=== PATIENT | female | born 1955 | race Native Hawaiian/Other Pacific Islander ===

== ENCOUNTER 2016-04-17 14:37 | Outpatient (CLI) | payer MEDICAID | END 2016-04-17 14:38 | disposition home or self-care (01) | DX: Z13.9 Encounter for screening, unspecified (principal); E53.9 Vitamin B deficiency, unspecified ==

== ENCOUNTER 2016-08-12 13:21 | Emergency (ER) | payer MEDICAID ==
[2016-08-12] MEDS ORDERED: diazePAM INJ 5 MG/ML SYRINGE IVP STA (17:22)
[2016-08-12] MEDS ORDERED: diazePAM INJ 5 MG/ML SYRINGE ONE (17:24)
== END 2016-08-12 19:41 | disposition home or self-care (01) ==
DX: R20.2 Paresthesia of skin (principal); R29.810 Facial weakness; R51 Headache; Z86.73 Personal history of transient ischemic attack (TIA), and cerebral infarction without residual deficits; I10 Essential (primary) hypertension; E11.9 Type 2 diabetes mellitus without complications; Z79.82 Long term (current) use of aspirin

== ENCOUNTER 2016-10-23 10:55 | Outpatient (CLI) | payer MEDICAID ==
--- NOTE | 2016-10-23 11:59 | Ultrasound Report ---
ULTRASOUND OF NECK SOFT TISSUES: 10/23/2016 CLINICAL INDICATION: Palpable painful abnormality anterior neck. TECHNIQUE: Real-time scanning was performed with technical support representative static images obtained. FINDINGS: Ultrasound of the painful palpable abnormality identified by the patient demonstrates a 4 x 3 x 1 mm intradermal nodule, likely representing a small sebaceous cyst. No deeper abnormality is i dentified. IMPRESSION: LIKELY SMALL INTRADERMAL SEBACEOUS CYST. JOB #: [id number] EXT JOB #:[id number]
== END 2016-10-23 10:56 | disposition home or self-care (01) ==
LOC: DI 10:55
PROVIDERS: ATTEND Physician Assistant
DX: L72.3 Sebaceous cyst (principal)
CPT/HCPCS: 76536

== ENCOUNTER → 2016-10-31 | Outpatient (CLI) | payer MEDICAID ==
[2016-10-31 19:19] LABS: ALBUMIN/GLOBULIN RATIO 1.2 (1.0-2.2); BILIRUBIN,TOTAL 0.6 mg/dL (0.2-1.0); CALCIUM 9.2 mg/dL (8.5-10.3); CREATININE 0.7 mg/dL (0.4-1.0); POTASSIUM 4.2 mmol/L (3.5-5.0); TOTAL PROTEIN 6.9 g/dL (6.7-8.2)
== END ==
LOC: LAB.N 08:00
PROVIDERS: ATTEND Nurse Practitioner Gerontology
DX: E55.9 Vitamin D deficiency, unspecified (principal); E53.8 Deficiency of other specified B group vitamins; Z79.899 Other long term (current) drug therapy
CPT/HCPCS: 36415; 80053; 82306; 82607

== ENCOUNTER 2016-12-23 13:34 | Outpatient (CLI) | payer MEDICAID | END 2016-12-23 13:35 | disposition home or self-care (01) | LOC: SC 13:34 | PROVIDERS: ATTEND Internal Medicine Pulmonary Disease | DX: G47.33 Obstructive sleep apnea (adult) (pediatric) (principal) | CPT/HCPCS: 99212; 99213 ==

== ENCOUNTER 2017-02-25 14:27 | Outpatient (CLI) | payer MEDICAID | END 2017-02-25 14:28 | disposition home or self-care (01) | LOC: SC 14:27 | PROVIDERS: ATTEND Internal Medicine Pulmonary Disease | DX: G47.33 Obstructive sleep apnea (adult) (pediatric) (principal) | CPT/HCPCS: 99212; 99213 ==

== ENCOUNTER 2017-04-24 09:15 | Outpatient (CLI) | payer MEDICAID | END 2017-04-24 09:16 | disposition home or self-care (01) | LOC: SC 09:15 | PROVIDERS: ATTEND Nurse Practitioner Family | DX: G47.33 Obstructive sleep apnea (adult) (pediatric) (principal) | CPT/HCPCS: 99212; 99214 ==

== ENCOUNTER 2017-05-30 11:07 | Outpatient (CLI) | payer MEDICAID ==
--- NOTE | 2017-05-30 13:36 | XRAY Report ---
THREE VIEW RIGHT SHOULDER: 05/30/2017 CLINICAL INDICATION: Pain. FINDINGS: Internal and external rotational views and a scapular Y view of the right shoulder demonstrate no evidence of fracture or dislocation. The joint spaces are preserved. No radiopaque foreign body is seen in the soft tissues. IMPRESSION: NORMAL RIGHT SHOULDER. TD: 05/30/2017 13:35
== END 2017-05-30 11:08 | disposition home or self-care (01) ==
LOC: DI.N 11:07
PROVIDERS: ATTEND Family Medicine
DX: M25.511 Pain in right shoulder (principal)

== ENCOUNTER 2017-06-03 14:47 | Outpatient (CLI) | payer MEDICAID ==
[2017-06-03 13:20] LABS: BASOPHILS % (AUTO) 0.5 %; EOSINOPHILS # (AUTO) 0.2 10^3/uL (0.0-0.7); HGB - HEMOGLOBIN 12.1 g/dL (12.0-16.0); LYMPHOCYTES # (AUTO) 1.6 10^3/uL (1.5-3.5); LYMPHOCYTES % (AUTO) 25.5 %; MEAN CORPUSCULAR HEMOGLOBIN 31.7 pg (27.0-31.0); MEAN CORPUSCULAR VOLUME 95.9 fL (81.0-99.0); MEAN PLATELET VOLUME 7.9 fL (7.9-10.8); MONOCYTES # (AUTO) 0.8 10^3/uL (0.0-1.0); MONOCYTES % (AUTO) 12.4 %; NEUTROPHILS # (AUTO) 3.6 10^3/uL (1.5-6.6); NEUTROPHILS % (AUTO) 58.6 %; PLT - PLATELET COUNT 275 10^3/uL (130-450); RED BLOOD COUNT 3.81 10^6/uL (4.20-5.40); RED CELL DISTRIBUTION WIDTH 13.6 % (12.0-15.0); WHITE BLOOD COUNT 6.2 x10^3/uL (4.8-10.8)
[2017-06-03 13:59] LABS: ALBUMIN 3.5 g/dL (3.2-5.5); ALBUMIN/GLOBULIN RATIO 1.1 (1.0-2.2); ALKALINE PHOSPHATASE 62 IU/L (42-121); ALT ALANINE AMINOTRANSFERASE 14 IU/L (10-60); AST ASPARTATE AMINOTRANSFERASE 14 IU/L (10-42); BILIRUBIN,TOTAL 0.3 mg/dL (0.2-1.0); BUN - BLOOD UREA NITROGEN 17 mg/dL (6-20); CALCIUM 8.9 mg/dL (8.5-10.3); CARBON DIOXIDE - CO2 27 mmol/L (21-32); CHLORIDE 108 mmol/L (101-111); CHOL/HDL RATIO 3.9 (<4.4); CHOLESTEROL 168 mg/dL; CREATININE 0.7 mg/dL (0.4-1.0); GFR - MDRD 86 (>89); GLUCOSE 89 mg/dL (70-100); HDL CHOLESTEROL 43 mg/dL; LDL CHOLESTEROL,CALCULATED 110 mg/dL; LDL/HDL RATIO 2.6 (<4.4); SODIUM 141 mmol/L (135-145); TOTAL PROTEIN 6.6 g/dL (6.7-8.2); VLDL CHOLESTEROL 15 mg/dL
== END 2017-06-03 14:48 | disposition home or self-care (01) ==
LOC: LAB.N 14:47
PROVIDERS: ATTEND Family Medicine
DX: D64.9 Anemia, unspecified (principal); I10 Essential (primary) hypertension
CPT/HCPCS: 36415; 80053; 80061; 83721; 85025

== ENCOUNTER 2017-06-23 09:45 | Outpatient (CLI) | payer MEDICAID | END 2017-06-23 09:46 | disposition home or self-care (01) | LOC: SC 09:45 | PROVIDERS: ATTEND Internal Medicine Pulmonary Disease | DX: G47.33 Obstructive sleep apnea (adult) (pediatric) (principal) | CPT/HCPCS: 99212; 99213 ==

== ENCOUNTER 2017-09-15 14:01 | Outpatient (CLI) | payer MEDICAID | END 2017-09-15 14:02 | disposition home or self-care (01) | LOC: SC 14:01 | PROVIDERS: ATTEND Internal Medicine Pulmonary Disease | DX: G47.33 Obstructive sleep apnea (adult) (pediatric) (principal) | CPT/HCPCS: 99212; 99213 ==

== ENCOUNTER 2018-02-04 10:04 | Outpatient (CLI) | payer MEDICAID ==
[2018-02-04 14:09] LABS: ALBUMIN 3.3 g/dL (3.2-5.5); ALBUMIN/GLOBULIN RATIO 0.9 (1.0-2.2); BILIRUBIN,TOTAL 0.7 mg/dL (0.2-1.0); CREATININE 0.8 mg/dL (0.4-1.0); TOTAL PROTEIN 7.1 g/dL (6.7-8.2)
[2018-02-04 14:10] LABS: CALCIUM 12.4 mg/dL (8.5-10.3)
== END 2018-02-04 10:05 ==
LOC: LAB.N 10:04
PROVIDERS: ATTEND Family Medicine
DX: B35.1 Tinea unguium (principal); I10 Essential (primary) hypertension
CPT/HCPCS: 36415; 80053

== ENCOUNTER 2018-02-10 08:00 | Outpatient (CLI) | payer MEDICAID ==
[2018-02-10 18:41] LABS: BASOPHILS % (AUTO) 0.5 %; EOSINOPHILS # (AUTO) 0.1 10^3/uL (0.0-0.7); EOSINOPHILS % (AUTO) 1.4 %; HGB - HEMOGLOBIN 11.4 g/dL (12.0-16.0); LYMPHOCYTES # (AUTO) 1.6 10^3/uL (1.5-3.5); LYMPHOCYTES % (AUTO) 25.3 %; MEAN CORPUSCULAR HGB CONC 31.9 g/dL (32.0-36.0); MEAN PLATELET VOLUME 7.7 fL (7.9-10.8); MONOCYTES # (AUTO) 0.7 10^3/uL (0.0-1.0); MONOCYTES % (AUTO) 11.6 %; NEUTROPHILS # (AUTO) 3.9 10^3/uL (1.5-6.6); NEUTROPHILS % (AUTO) 61.2 %; PLT - PLATELET COUNT 366 10^3/uL (130-450); RED BLOOD COUNT 3.81 10^6/uL (4.20-5.40); RED CELL DISTRIBUTION WIDTH 14.4 % (12.0-15.0); WHITE BLOOD COUNT 6.4 x10^3/uL (4.8-10.8)
[2018-02-10 19:09] LABS: THYROID STIMULATING HORMONE 1.65 uIU/mL (0.34-5.60)
[2018-02-10 19:11] LABS: FREE T4 (FREE THYROXINE) 0.99 ng/dL (0.58-1.64)
[2018-02-10 19:25] LABS: ALBUMIN 3.5 g/dL (3.2-5.5); ALBUMIN/GLOBULIN RATIO 0.9 (1.0-2.2); BILIRUBIN,TOTAL 0.7 mg/dL (0.2-1.0); CREATININE 1.1 mg/dL (0.4-1.0); TOTAL PROTEIN 7.5 g/dL (6.7-8.2)
[2018-02-11 07:29] LABS: CALCIUM 13.4 mg/dL (8.5-10.3)
== END 2018-02-10 08:01 | disposition home or self-care (01) ==
LOC: LAB.N 08:00
PROVIDERS: ATTEND Family Medicine
DX: R11.2 Nausea with vomiting, unspecified (principal); E83.52 Hypercalcemia
CPT/HCPCS: 36415; 80053; 83970; 84439; 84443; 85025; 85651

== ENCOUNTER 2018-02-11 10:21 | Inpatient (IN) | payer MEDICAID ==
[2018-02-11 11:03] LABS: BILIRUBIN,URINE NEGATIVE (NEGATIVE); GLUCOSE, URINE (UA) NEGATIVE (NEGATIVE); KETONES,URINE (UA) NEGATIVE (NEGATIVE); LEUKOCYTE ESTERASE, URINE NEGATIVE (NEGATIVE); NITRITE,URINE NEGATIVE (NEGATIVE); OCCULT BLOOD,URINE TRACE-INTA (NEGATIVE); PH,URINE 5.5 PH (5.0-7.5); PROTEIN,URINE NEGATIVE (NEGATIVE); UROBILINOGEN,URINE 0.2 (NORMAL) E.U./dL (NORMAL)
[2018-02-11 11:05] LABS: CLARITY,URINE CLEAR (CLEAR)
--- NOTE | 2018-02-11 11:36 | ED Physician Documentation ---
PD HPI NVD - Stated complaint Stated Complaint: VOMITING/STOMACH PX - Chief complaint Chief Complaint: Cardiac - History obtained from History obtained from: Patient - History of Present Illness Timing - onset: How many days ago (4-5) Timing - duration: Days (4-5) Timing - details: Gradual onset, Still present Associated symptoms: Abdominal pain, Loss of appetite, Other (Constipation.). No: Fever, Chest pain, Near syncope / syncope Contributing factors: No: Sick contact, Bad food, Travel Similar symptoms before: Has not had sx before Recently seen: Clinic (She has been seen a week ago for basic evaluation had blood tests noting an elevated calcium level of 12. She was having a repeat office visit for follow-up of that and had developed the above symptoms in the interim. A repeat calcium level was 13.4. That was drawn yesterday and just re sulted this morning. The office nurse called her today to come to the ER for evaluation upon the lab results. They did add a PTH blood tests to what was in the lab and this is available for results showing a low level.) Review of Systems Constitutional: reports: Fatigue. denies: Fever, Chills Nose: denies: Rhinorrhea / runny nose, Congestion Throat: denies: Sore throat Respiratory: denies: Cough GI: reports: Abdominal Pain, Nausea, Vomiting, Constipation. denies: Abdominal Swelling, Diarrhea, Hematemesis, Bloody / black stool : denies: Dysuria, Frequency Skin: denies: Rash, Lesions Neurologic: reports: Generalized weakness (for a week). denies: Focal weakness, Numbness Endocrine: denies: Weight loss Immunocompromised: denies: Immunocompromised PD PAST MEDICAL HISTORY - Past Medical History Cardiovascular: Hypertension Respiratory: Asthma Endocrine/Autoimmune: Type 2 diabetes GI: GERD : None HEENT: None Psych: Depression Musculoskeletal: Osteoarthritis Derm: Psoriasis - Past Surgical History Past Surgical History: Yes General: Cholecystectomy, Hiatal hernia repair Ortho: Carpal Tunnel surgery /OTR [employer]: Hysterectomy HEENT: Tonsil/Adenoidectomy - Present Medications Home Medications: Ambulatory Orders Medication Instructions Recorded Confirmed Clobetasol Propionate/Emoll 15 gm TOP BID 09/02/13 08/12/16 [Clobetasol Emollient 0.05% Crm] EPINEPHrine [Epipen] 0.1 mg SQ ONCE PRN 09/02/13 08/12/16 Furosemide [Lasix] 40 mg PO DAILY 09/02/13 08/12/16 Potassium Chloride [Klor-Con M20] 20 meq PO DAILY 09/02/13 08/12/16 Prazosin HCl 4 mg PO QPM 09/02/13 08/12/16 Temazepam 15 mg PO QPM 09/02/13 08/12/16 Ranitidine HCl [Zantac] 150 mg PO DAILY 03/28/14 08/12/16 Aspirin [Aspir-Low] 81 mg ORAL DAILY 03/14/15 08/12/16 Citalopram [CeleXA] 40 mg ORAL DAILY 03/14/15 08/12/16 Apremilast [Otezla] 30 mg PO BID 08/12/16 08/12/16 Chlorhexidine Gluconate [Hibiclens] 1 applic TOP DAILY 08/12/16 08/12/16 Ergocalciferol [Vitamin D2] 1 cap PO DAILYWM 08/12/16 08/12/16 Pramipexole [Mirapex] 0.25 mg PO DAILY 08/12/16 08/12/16 Fluticasone 44 Mcg [Flovent] 1 puffs 02/11/18 Minocycline HCl 100 mg 02/11/18 Naproxen [Naprosyn] 02/11/18 hydrOXYzine HCl [Hydroxyzine HCl] 25 mg 02/11/18 traZODone [Desyrel] 02/11/18 02/11/18 - Allergies Allergies/Adverse Reactions: Allergies Allergy/AdvReac Type Severity Reaction Status Date / Time iodine Allergy Severe Nausea Verified 02/11/18 10:44 Latex, Natural Rubber Allergy Unknown Verified 02/11/18 10:44 bee stings Allergy Severe Anaphylaxis Uncoded 08/12/16 19:18 paper tape Allergy Intermediate Hives Uncoded 08/12/16 19:18 - Social History Does the pt smoke?: No Smoking Status: Never smoker Does the pt drink ETOH?: Yes Does the pt have substance abuse?: No - Family History Family history: reports: Non contributory - Immunizations Immunizations are current?: Yes - POLST Patient has POLST: Yes PD ED PE NORMAL - Vitals Vital signs reviewed: Yes - General General: Alert and oriented X 3, Well developed/nourished - HEENT HEENT: Ears normal, Pharynx benign. No: Moist mucous membranes - Neck Neck: Supple, no meningeal sign, No adenopathy - Cardiac Cardiac: RRR, No murmur - Respiratory Respiratory: Clear bilaterally - Abdomen Abdomen: Soft, Non tender, No organomegaly. No: Normal bowel sounds (decreased) - Female Female : Deferred - Rectal Rectal: Deferred - Back Back: No CVA TTP - Derm Derm: Normal color, Warm and dry - Extremities Extremities: No deformity, No tenderness to palpate, Normal ROM s pain, No edema, No calf tenderness / cord - Neuro Neuro: Alert and oriented X 3, No motor deficit, Normal speech Eye Opening: Spontaneous Motor: Obeys Commands Verbal: Oriented GCS Score: 15 - Psych Psych: Normal mood, Normal affect Results - Vitals Vitals: Vital Signs - 24 hr 02/11/18 02/11/18 02/11/18 10:40 11:30 13:10 Temperature 36.8 C Heart Rate 77 75 69 Respiratory 16 19 17 Rate Blood Pressure 142/61 H 133/56 H 130/58 L O2 Saturation 96 97 99 Oxygen O2 Source Room air - Labs Labs: Laboratory Tests 02/11/18 02/11/18 02/11/18 10:39 11:20 11:20 WBC 6.4 RBC 3.61 L Hgb 10.8 L Hct 33.0 L MCV 91.4 MCH 29.9 MCHC 32.7 RDW 14.0 Plt Count 360 MPV 7.5 L Neut # (Auto) 4.4 Lymph # (Auto) 1.1 L Wilkes # (Auto) 0.7 Eos # (Auto) 0.2 Baso # (Auto) 0.1 Absolute Nucleated RBC 0.00 Nucleated RBC % 0.1 VBG pH Ionized Calcium Sodium 140 Potassium 4.3 Chloride 106 Carbon Dioxide 28 Anion Gap 6.0 BUN 18 Creatinine 1.2 H Estimated GFR (MDRD) 46 L Glucose 112 H Calcium 13.0 H* Phosphorus Magnesium Total Bilirubin 0.6 AST 16 ALT 14 Alkaline Phosphatase 73 B-Natriuretic Peptide Total Protein 7.1 Albumin 3.5 Globulin 3.6 Albumin/Globulin Ratio 1.0 Lipase 25 CA 125 Antigen Urine Color YELLOW Urine Clarity CLEAR Urine pH 5.5 Ur Specific [place] >=1.030 H Urine Protein NEGATIVE Urine Glucose (UA) NEGATIVE Urine Ketones NEGATIVE Urine Occult Blood TRACE-INTA Urine Nitrite NEGATIVE Urine Bilirubin NEGATIVE Urine Urobilinogen 0.2 (NORMAL) Ur Leukocyte Esterase NEGATIVE Ur Microscopic Review NOT INDICATED Urine Culture Comments NOT INDICATED 02/11/18 02/11/18 02/11/18 11:20 11:20 11:20 WBC RBC Hgb Hct MCV MCH MCHC RDW Plt Count MPV Neut # (Auto) Lymph # (Auto) [place] # (Auto) Eos # (Auto) Baso # (Auto) Absolute Nucleated RBC Nucleated RBC % VBG pH Ionized Calcium Sodium Potassium Chloride Carbon Dioxide Anion Gap BUN Creatinine Estimated GFR (MDRD) Glucose Calcium Phosphorus Magnesium 2.3 Total Bilirubin AST ALT Alkaline Phosphatase B-Natriuretic Peptide 104 H Total Protein Albumin Globulin Albumin/Globulin Ratio Lipase CA 125 Antigen 3.7 Urine Color Urine Clarity Urine pH Ur Specific [place] Urine Protein Urine Glucose (UA) Urine Ketones Urine Occult Blood Urine Nitrite Urine Bilirubin Urine Urobilinogen Ur Leukocyte Esterase Ur Microscopic Review Urine Culture Comments 02/11/18 02/11/18 11:20 12:18 WBC RBC Hgb Hct MCV MCH MCHC RDW Plt Count MPV Neut # (Auto) Lymph # (Auto) [place] # (Auto) Eos # (Auto) Baso # (Auto) Absolute Nucleated RBC Nucleated RBC % VBG pH 7.383 Ionized Calcium 1.67 H* Sodium Potassium Chloride Carbon Dioxide Anion Gap BUN Creatinine Estimated GFR (MDRD) Glucose Calcium Phosphorus 2.6 Magnesium Total Bilirubin AST ALT Alkaline Phosphatase B-Natriuretic Peptide Total Protein Albumin Globulin Albumin/Globulin Ratio Lipase CA 125 Antigen Urine Color Urine Clarity Urine pH Ur Specific [place] Urine Protein Urine Glucose (UA) Urine Ketones Urine Occult Blood Urine Nitrite Urine Bilirubin Urine Urobilinogen Ur Leukocyte Esterase Ur Microscopic Review Urine Culture Comments PD MEDICAL DECISION MAKING - ED course Complexity details: re-evaluated patient (The patient is feeling somewhat better after some fluids antiemetics and medicine for headache. This was Toradol and Reglan as she does states she has a history of some migraines in the past. However she is only moderately better with regard to the symptoms. We will give her other medications with fluid and more antiemetics. However she is likely going to need hospitalization as the symptoms may relate to the hypercalcemia and that is not going to improve until the calcium is lower.), considered differential (She has elevated calcium to a significant degree which is higher than a week ago. Her other electrolytes are good. She does not take a calcium supplement. The office had done a PTH test which is very low suggesting not a primary hyperparathyroidism but a secondary hypercalcemia. We will check for phosphorus levels vitamin D and PTH-related proteins. We will give her IV fluids and also antiemetics and medicine for headache. Concern would be for potential calcium breakdown from tumors and can start with a abdominal and pelvic CT for the most likely places and also draw a CA 125 level.), d/w patient
[2018-02-11] MEDS ORDERED: SODIUM CHLORIDE 0.9% 1,000 ML IV ONE ×2 (12:04→13:28)
[2018-02-11] MEDS ORDERED: METOCLOPRAMIDE 10 MG/2 ML VIAL IVP STA (12:06)
[2018-02-11 12:15] LABS: BASOPHILS # (AUTO) 0.1 10^3/uL (0.0-0.1); BASOPHILS % (AUTO) 0.9 %; EOSINOPHILS # (AUTO) 0.2 10^3/uL (0.0-0.7); EOSINOPHILS % (AUTO) 2.4 %; HGB - HEMOGLOBIN 10.8 g/dL (12.0-16.0); LYMPHOCYTES # (AUTO) 1.1 10^3/uL (1.5-3.5); LYMPHOCYTES % (AUTO) 17.8 %; MEAN CORPUSCULAR HEMOGLOBIN 29.9 pg (27.0-31.0); MEAN CORPUSCULAR HGB CONC 32.7 g/dL (32.0-36.0); MEAN CORPUSCULAR VOLUME 91.4 fL (81.0-99.0); MEAN PLATELET VOLUME 7.5 fL (7.9-10.8); MONOCYTES # (AUTO) 0.7 10^3/uL (0.0-1.0); MONOCYTES % (AUTO) 10.5 %; NEUTROPHILS # (AUTO) 4.4 10^3/uL (1.5-6.6); NEUTROPHILS % (AUTO) 68.4 %; PLT - PLATELET COUNT 360 10^3/uL (130-450); RED BLOOD COUNT 3.61 10^6/uL (4.20-5.40); WHITE BLOOD COUNT 6.4 x10^3/uL (4.8-10.8)
[2018-02-11] MEDS ORDERED: KETOROLAC 15 MG/ML VIAL IVP STA (12:19)
[2018-02-11 12:26] LABS: VBG PH 7.383 (7.31-7.41)
[2018-02-11 12:28] LABS: ALBUMIN 3.5 g/dL (3.2-5.5); BILIRUBIN,TOTAL 0.6 mg/dL (0.2-1.0); CREATININE 1.2 mg/dL (0.4-1.0); TOTAL PROTEIN 7.1 g/dL (6.7-8.2)
[2018-02-11] MEDS ORDERED: ZOLEDRONIC ACID 3 MG in SODIUM CHLORIDE 0.9% 100ML 100 ML IV ONE (13:00)
[2018-02-11] MEDS ORDERED: IOVERSOL 320 100 ML VIAL IVP ONE ×2 (13:16→14:35)
[2018-02-11] MEDS ORDERED: MORPHINE 2 MG/ML CARPUJECT IVP STA (13:28)
[2018-02-11] MEDS ORDERED: diphenhydrAMINE INJ 50 MG/ML VIAL IVP STA (13:28)
[2018-02-11] MEDS ORDERED: TEMAZEPAM 15 MG CAPSULE PO PRN (14:11)
[2018-02-11] MEDS ORDERED: PROMETHAZINE 25 MG/1 ML VIAL IM PRN (14:11)
--- NOTE | 2018-02-11 14:22 | HISTORY & PHYSICAL EXAMINATION ---
Chief Complaint - Chief Complaint Chief Complaint: Nausea and vomiting History of Present Illness - Admitted From Admitted From:: Emergency Department - History Obtained From Records Reviewed: Yes History obtained from: Patient Exam Limitations: None - History of Present Illness HPI Comment/Other: Patient is a 62-year-old female with a past medical history significant for psoriatic arthritis on otezla, depression, multiple CVAs with generalized weakness, COPD and obesity who presents to the emergency department with a chief complaint of nausea and vomiting. The patient states that her symptoms started 3 days ago when she states that she felt sick to her stomach. She states that she became nauseated and had several episodes of emesis. She also notes that she was having right lower quadrant abdominal pain. She felt generalized weakness and increasing fatigue. She states that yesterday she went to see her primary care doctor who told her that her calcium was high and said that he needed to do further workup on that. He did treat her headache and sent her home with instructions to drink plenty of fluid. The patient states that today her pain became significantly worse and she states that she started having pain all over her body. She states it was bone pain. She also continued to be nauseated and vomited several times at home. She states that her nausea became so bad that she decided to call her primary care physician's office. The primary care physician was concerned about her elevated calcium and told her to go to the emergency department. The patient denies any fevers or chills. She denies any diarrhea. She does state that she has been constipated for the last few days. She denies any chest pain, shortness of breath, orthopnea, PND, increased lower extremity swelling. Patient denies any blurred vision, runny nose, sore throat, nasal congestion, difficulty swallowing, joint swelling, neck stiffness, recent unintentional weight loss, skin rashes, skin changes, hair loss, polyuria, polydipsia, dysuria, hematuria, increased urinary urgency, dizziness, syncope, night sweats or any focal neurologic deficits. On presentation to the emergency department the patient was afebrile and slightly hypertensive but vital signs were otherwise within normal limits. The patient's lab work revealed a mild anemia with a hemoglobin of 10.8, a mildly elevated creatinine of 1.2 from a baseline of 0.8 and hypercalcemia with a calcium of 13.0. The patient's ionized calcium was elevated at 1.67. The patient underwent further workup for her hypercalcemia with a PTH which was low, CA 125 which was within normal limits and a vitamin D level which is still pending. Given that the patient's PTH was low the likely cause of her hypercalcemia was malignancy versus vitamin D excess versus milk alkali syndrome versus thiazide use versus increased bone turnover. She was on vitamin D supple ments but to rule out malignancy the emergency room physician ordered a CT of her abdomen and pelvis. The CT of the abdomen and pelvis revealed a left renal mass measuring 9.7 cm with prominent retroperitoneal lymph nodes and no renal vein invasion. The patient was admitted to the hospital for IV hydration for her symptomatic hypercalcemia. 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 She is on disability. She states that her stepfather, son, [id number], 2 grandchildren and sister all live close to her in [place]. She states that she does have a lot of family support. She has been living on [facility] for the past 30 years. Prior to that she lived in [facility] and states that she was born in [place]. She is . She states that she was previously a heavy smoker and smoked 1 pack/day but quit in 2010. She states that she smoked from the age of 16. She states that now she only smokes a few cigarettes occasionally when she is stressed. She states that she is a social drinker and denies any illicit drug use. - POLST Patient has POLST: Yes POLST Status: Full Code Meds/Allgy - Home Medications Home Medications: Ambulatory Orders Medication Instructions Recorded Confirmed Potassium Chloride [Klor-Con M20] 20 meq PO DAILY 09/02/13 02/11/18 Prazosin HCl 4 mg PO QPM 09/02/13 02/11/18 Ranitidine HCl [Zantac] 150 mg PO DAILY 03/28/14 02/11/18 Aspirin [Aspir-Low] 81 mg ORAL DAILY 03/14/15 02/11/18 Citalopram [CeleXA] 40 mg ORAL DAILY 03/14/15 02/11/18 Apremilast [Otezla] 30 mg PO BID 08/12/16 02/11/18 Ergocalciferol [Vitamin D2] 50,000 units PO MOFR@0900 08/12/16 02/11/18 Pramipexole [Mirapex] 0.25 mg PO 1900 08/12/16 02/11/18 Albuterol Sulfate [Proair Hfa 2 puffs INH Q4H PRN 02/11/18 02/11/18 Inhaler] Fluticasone 110 Mcg [Flovent] 2 puffs INH BID 02/11/18 02/11/18 Ipratropium/Albuterol Sulfate 3 ml INH QID PRN 02/11/18 02/11/18 [Iprat-Albut 0.5-3(2.5) mg/3 ml] Minocycline HCl 100 mbq PO BID 02/11/18 02/11/18 Naproxen 500 mg PO BID PRN 02/11/18 02/11/18 hydrOXYzine HCl [Hydroxyzine HCl] 25 mg PO BID PRN 02/11/18 02/11/18 traZODone [Desyrel] 100 mg PO QPM 02/11/18 02/11/18 - Allergies Allergies/Adverse Reactions: Allergies Allergy/AdvReac Type Severity Reaction Status Date / Time iodine Allergy Severe Nausea Verified 02/11/18 10:44 Latex, Natural Rubber Allergy Unknown Verified 02/11/18 10:44 bee stings Allergy Severe Anaphylaxis Uncoded 08/12/16 19:18 paper tape Allergy Intermediate Hives Uncoded 08/12/16 19:18 Review of Systems - Other Findings Other Findings: A comprehensive review of systems was performed the pertinent positives and negatives are stated above in the HPI and the remainder of the review of systems is negative. Prior Level of Functionality: Patient is completely independent with all her activities of daily living. She uses a walker at home and has severe osteoarthritis and needs bilateral knee replacements. Exam - Vital Signs Reviewed Vital Signs: Yes Vital Signs: Vital Signs x48h Temp Pulse Resp BP Pulse Ox 02/11/18 13:10 69 17 130/58 L 99 02/11/18 11:30 75 19 133/56 H 97 02/11/18 10:40 36.8 C 77 16 142/61 H 96 - Physical Exam General Appearance: positive: No acute distress, Alert, Other (Morbidly obese) Eyes Bilateral: positive: Normal inspection, PERRL, EOMI, No lid inflammation, Conjunctivae nml ENT: positive: ENT inspection nml, Pharynx nml, Dry mucous membranes. negative: Purulent nasal drainage, Pharyngeal erythema, Oral lesions Neck: positive: Nml inspection, Thyroid nml, No JVD, Trachea midline. negative: Thyromegaly, Lymphadenopathy (R), Lymphadenopathy (L), Carotid bruit, Tracheal deviation Respiratory: positive: Chest non-tender, No respiratory distress, Breath sounds nml. negative: Wheezes, Rales, Rhonchi Cardiovascular: positive: Regular rate & rhythm, No murmur, No gallop Peripheral Pulses: positive: 2+ Abdomen: positive: No organomegaly, Nml bowel sounds, No distention, Tenderness (Diffuse tenderness worse in the right lower quadrant, soft, nondistended, no peritoneal signs). negative: Guarding, Rebound, Hepatomegaly, Splenomegaly Back: positive: Nml inspection. negative: CVA tenderness (R), CVA tenderness (L) Skin: positive: Color nml, No rash, Warm, Dry. negative: Cyanosis, Diaphoresis, Pallor, Skin rash Extremities: positive: Non-tender, Full ROM, Nml appearance, No pedal edema Neurologic/Psychiatric: positive: Oriented x3, CN's nml (2-12), Motor nml, Sensa tion nml, Mood/affect nml Conclusion/Plan - Problem List (1) Hypercalcemia Conclusion/Plan: The patient presented with hypercalcemia which was symptomatic as patient has been having nausea, vomiting, abdominal pain and bone pain. She has also been experiencing constipation, generalized weakness and fatigue. The patient's calcium was elevated when she saw her primary care physician yesterday at 13.4. In fact looking at her lab work it has been elevated since 02/04/2018 when it was 12.4. Today on presentation to the emergency department the patient's calcium is 13.0. From previous lab work it appears that the patient has a low PTH therefore the patient likely has malignancy versus vitamin D excess versus milk-alkali syndrome versus thiazide overuse versus increased bone turnover. Further history revealed that she is on a vitamin D supplement however we were concerned for possible malignancy therefore a CT of the abdomen/pelvis was performed which showed a large left renal mass. The patient has symptomatic hypercalcemia with likely cause being malignancy from likely PTH related hormone. Plan: IV normal saline at 200 mL's per hour Monitor calcium and ionized calcium every 6 hours Control symptoms with antiemetics and pain control Good bowel regimen Check PTH related hormone Check vitamin D level Hold vitamin D (2) Renal mass Conclusion/Plan: Patient has a newly found left renal mass. Given her hypercalcemia this is likely malignancy. The patient also has enlarged lymph nodes. Plan: Treat patient's hypercalcemia while patient is hospitalized with IV fluids Patient will need to follow-up with her primary care physician to get referral for biopsies and follow-up with oncology (3) FAINA (acute kidney injury) Conclusion/Plan: The patient has acute kidney injury with a creatinine of 1.2 increased from baseline of 0.8. The patient appears to be dehydrated likely secondary to hypercalcemia. This is likely causing her some acute kidney injury. Patient also has a renal mass which could also be contributing to renal failure. Plan: Patient will be given IV fluids We will monitor creatinine We will avoid nephrotoxic agents. (4) Hypertension Conclusion/Plan: The patient has a history of hypertension but has been off of any antihypertensive medications for some time. Presentation the patient is hypertensive this is likely secondary to pain. We will attempt to control the patient's pain and monitor blood pressure. If the patient's blood pressure remains high we may need to start her on an antihypertensive. Qualifiers: Hypertension type: essential hypertension Qualified Code(s): I10 - Essential (primary) hypertension (5) Depression Conclusion/Plan: The patient has a history of depression. She is obviously upset from her new diagnosis of a renal mass however she seems to be stable from the standpoint of depression. We will continue the patient on Celexa and trazodone per her home medications. Qualifiers: Depression Type: unspecified Qualified Code(s): F32.9 - Major depressive disorder, single episode, unspecified (6) Asthma Conclusion/Plan: The patient has a history of asthma and is on an albuterol inhaler, DuoNeb and Flovent at home. While she is hospitalized will be placed on DuoNeb as needed along with budesonide twice daily. Stable Qualifiers: Asthma severity: mild Asthma persistence: intermittent Asthma complication type: unspecified Qualified Code(s): J45.20 - Mild intermittent asthma, uncomplicated (7) Psoriatic arthritis Conclusion/Plan: The patient has a history of cirrhotic arthritis and uses apremilast 30 mg twice daily to control symptoms at home. We will continue the patient on her home medication. She currently appears to be stable. - Lab Results Lab results reviewed: Yes Fish Bones: 02/11/18 11:20 02/11/18 11:20 Other Lab Results: Laboratory Results WBC 6.4 x10^3/uL (4.8-10.8) 02/11/18 11:20 RBC 3.61 10^6/uL (4.20-5.40) L 02/11/18 11:20 Hgb 10.8 g/dL (12.0-16.0) L 02/11/18 11:20 Hct 33.0 % (37.0-47.0) L 02/11/18 11:20 MCV 91.4 fL (81.0-99.0) 02/11/18 11:20 MCH 29.9 pg (27.0-31.0) 02/11/18 11:20 MCHC 32.7 g/dL (32.0-36.0) 02/11/18 11:20 RDW 14.0 % (12.0-15.0) 02/11/18 11:20 Plt Count 360 10^3/uL (130-450) 02/11/18 11:20 MPV 7.5 fL (7.9-10.8) L 02/11/18 11:20 Neut # (Auto) 4.4 10^3/uL (1.5-6.6) 02/11/18 11:20 Lymph # (Auto) 1.1 10^3/uL (1.5-3.5) L 02/11/18 11:20 Coal # (Auto) 0.7 10^3/uL (0.0-1.0) 02/11/18 11:20 Eos # (Auto) 0.2 10^3/uL (0.0-0.7) 02/11/18 11:20 Baso # (Auto) 0.1 10^3/uL (0.0-0.1) 02/11/18 11:20 Absolute Nucleated RBC 0.00 x10^3/uL 02/11/18 11:20 Nucleated RBC % 0.1 /100WBC 02/11/18 11:20 VBG pH 7.383 (7.31-7.41) 02/11/18 12:18 Ionized Calcium 1.67 mmol/L (1.15-1.33) H* 02/11/18 12:18 Sodium 140 mmol/L (135-145) 02/11/18 11:20 Potassium 4.3 mmol/L (3.5-5.0) 02/11/18 11:20 Chloride 106 mmol/L (101-111) 02/11/18 11:20 Carbon Dioxide 28 mmol/L (21-32) 02/11/18 11:20 Anion Gap 6.0 (6-13) 02/11/18 11:20 BUN 18 mg/dL (6-20) 02/11/18 11:20 Creatinine 1.2 mg/dL (0.4-1.0) H 02/11/18 11:20 Estimated GFR (MDRD) 46 (>89) L 02/11/18 11:20 Glucose 112 mg/dL (70-100) H 02/11/18 11:20 Calcium 13.0 mg/dL (8.5-10.3) H* 02/11/18 11:20 Phosphorus 2.6 mg/dL (2.5-4.6) 02/11/18 11:20 Magnesium 2.3 mg/dL (1.7-2.8) 02/11/18 11:20 Total Bilirubin 0.6 mg/dL (0.2-1.0) 02/11/18 11:20 AST 16 IU/L (10-42) 02/11/18 11:20 ALT 14 IU/L (10-60) 02/11/18 11:20 Alkaline Phosphatase 73 IU/L (42-121) 02/11/18 11:20 B-Natriuretic Peptide 104 pg/mL (5-100) H 02/11/18 11:20 Total Protein 7.1 g/dL (6.7-8.2) 02/11/18 11:20 Albumin 3.5 g/dL (3.2-5.5) 02/11/18 11:20 Globulin 3.6 g/dL (2.1-4.2) 02/11/18 11:20 Albumin/Globulin Ratio 1.0 (1.0-2.2) 02/11/18 11:20 Lipase 25 U/L (22-51) 02/11/18 11:20 CA 125 Antigen 3.7 U/mL (0.0-35.0) 02/11/18 11:20 Urine Color YELLOW 02/11/18 10:39 Urine Clarity CLEAR (CLEAR) 02/11/18 10:39 Urine pH 5.5 PH (5.0-7.5) 02/11/18 10:39 Ur Specific Palmer >=1.030 (1.002-1.030) H 02/11/18 10:39 Urine Protein NEGATIVE mg/dL (NEGATIVE) 02/11/18 10:39 Urine Glucose (UA) NEGATIVE mg/dL (NEGATIVE) 02/11/18 10:39 Urine Ketones NEGATIVE mg/dL (NEGATIVE) 02/11/18 10:39 Urine Occult Blood TRACE-INTA (NEGATIVE) 02/11/18 10:39 Urine Nitrite NEGATIVE (NEGATIVE) 02/11/18 10:39 Urine Bilirubin NEGATIVE (NEGATIVE) 02/11/18 10:39 Urine Urobilinogen 0.2 (NORMAL) E.U./dL (NORMAL) 02/11/18 10:39 Ur Leukocyte Esterase NEGATIVE (NEGATIVE) 02/11/18 10:39 Ur Microscopic Review NOT INDICATED 02/11/18 10:39 Urine Culture Comments NOT INDICATED 02/11/18 10:39 - Diagnostic Imaging Results Diagnostic Imaging Results: positive: Final report reviewed Diagnostic Imaging Results Comments: CT abdomen/pelvis Impression: There is a left renal mass which measures at least 9.7 cm with prominent retroperitoneal lymph nodes. Right kidney is normal. Left kidney demonstrates an infiltrative lower/mid pole originating heterogeneous iso-attenuating mass which measures at least 9.7 cm but is difficult to measure accurately in a configuration suggestive of apparent compression of the venous outflow with compensate Tory retroperitoneal collateral varices draining toward the pelvis. No evidence of renal vein invasion. The largest pelvic retroperitoneal chantelle cluster measures 1.4 x 2.6 cm on image 59 series 3. The most prominent nearby retroperitoneal lymph node is a 2.2 x 1.2 cm perirenal lymph node, image 39 series 3. Core Measures - Anticipated LOS I expect patient to be DC'd or transferred within 96 hours.: Yes - DVT/VTE - Prophylaxis VTE/DVT Prophylaxis med ordered at admit?: Yes
--- NOTE | 2018-02-11 15:01 | CT Report ---
Reason: elevated calcium Procedure Date: 02/11/2018 Accession Number: [id number] / [id number] Procedure: CT - Abdomen/Pelvis W/ CPT Code: FULL RESULT: EXAM: CT ABDOMEN AND PELVIS EXAM DATE: 02/11/2018 02:23 PM. CLINICAL HISTORY: Elevated calcium. COMPARISONS: None. TECHNIQUE: Routine helical CT imaging was performed through the abdomen and pelvis. IV contrast: Isovue-300 100 mL. Enteric contrast: No. Reconstructions: Coronal and sagittal. In accordance with CT protocol optimization, one or more of the following dose reduction techniques were utilized for this exam: automated exposure control, adjustment of mA and/or KV based on patient size, or use of iterative reconstructive technique. FINDINGS: Lung Bases: Unremarkable. Liver: Normal. No masses. Gallbladder/Bile Ducts: Not seen. Spleen: Normal. Pancreas: Normal. Adrenal Glands: Normal. Kidneys: Right kidney is normal. Left kidney demonstrates an infiltrative lower/midpole originating heterogeneous isoattenuating mass which measures at least 9.7 cm but is difficult to measure accurately in a configuration suggestive of apparent compression of the venous outflow with compensatory retroperitoneal collateral varices draining towards the pelvis. No evidence of renal vein invasion. The largest pelvic retroperitoneal chantelle cluster measures 1.4 x 2.6 cm on image 59 series 3. The most prominent nearby retroperitoneal lymph node is a 2.2 x 1.2 cm perirenal lymph node, image 39 series 3. Peritoneal Cavity/Bowel: Sigmoid diverticulosis without diverticulitis. No free fluid, free air or adenopathy. No masses or acute inflammatory process. The appendix is well visualized and normal. Pelvic Organs: Normal. The bladder and visualized pelvic organs are within normal limits. Vasculature: Atherosclerosis without aneurysm. Bones: No significant abnormality. Other: None. IMPRESSION: There is a left renal mass which measures at least 9.7 cm with prominent retroperitoneal lymph nodes as described. No renal vein invasion. RADIA cRITICAL RESULT: The findings were discussed with Dr. Abebe Escobedo on 02/11/2018 at 2:40 PM.
[2018-02-11] MEDS: SODIUM CHLORIDE FLUSH 0.9% 10 ML SYRINGE IVP SCH (15:48)
[2018-02-11] MEDS ORDERED: IPRATROPIUM/ALBUTEROL 3 ML NEB INH PRN (17:01)
[2018-02-11] MEDS: SODIUM CHLORIDE 0.9% 1,000 ML IV SCH ×2 (17:15→22:28)
[2018-02-11] MEDS: MORPHINE 2 MG/ML CARPUJECT IVP PRN ×3 (17:16→23:55)
[2018-02-11] MEDS: ONDANSETRON 4 MG/2 ML VIAL IVP PRN (17:16)
[2018-02-11] MEDS: SODIUM CHLORIDE FLUSH 0.9% 10 ML SYRINGE IVP PRN (17:16)
[2018-02-11 17:50] LABS: BUN - BLOOD UREA NITROGEN 16 mg/dL (6-20); CARBON DIOXIDE - CO2 26 mmol/L (21-32); CHLORIDE 109 mmol/L (101-111); CREATININE 1.1 mg/dL (0.4-1.0); GFR - MDRD 51 (>89); GLUCOSE 123 mg/dL (70-100); SODIUM 141 mmol/L (135-145)
[2018-02-11 17:53] LABS: CALCIUM 12.1 mg/dL (8.5-10.3)
[2018-02-11] MEDS: PRAMIPEXOLE 0.25 MG TABLET PO SCH (18:37)
[2018-02-11] MEDS: BUDESONIDE 0.5 MG/2 ML NEB INH SCH (20:03)
[2018-02-11 21:12] LABS: BUN - BLOOD UREA NITROGEN 17 mg/dL (6-20); CALCIUM 11.7 mg/dL (8.5-10.3); CARBON DIOXIDE - CO2 26 mmol/L (21-32); CHLORIDE 108 mmol/L (101-111); GFR - MDRD 57 (>89); GLUCOSE 116 mg/dL (70-100); SODIUM 142 mmol/L (135-145)
[2018-02-11] MEDS: PRAZOSIN 1 MG CAPSULE PO SCH (21:47)
[2018-02-11] MEDS: FAMOTIDINE 20 MG TABLET PO SCH (21:47)
[2018-02-11] MEDS: traZODone 50 MG TABLET PO SCH (21:50)
[2018-02-11] MEDS: oxyCODONE 5 MG TABLET PO PRN (21:56)
[2018-02-12] MEDS: SODIUM CHLORIDE 0.9% 1,000 ML IV SCH ×4 (03:27→19:16)
[2018-02-12] MEDS: MORPHINE 2 MG/ML CARPUJECT IVP PRN (03:28)
[2018-02-12 05:13] LABS: BASOPHILS % (AUTO) 0.4 %; EOSINOPHILS # (AUTO) 0.1 10^3/uL (0.0-0.7); EOSINOPHILS % (AUTO) 2.7 %; HGB - HEMOGLOBIN 9.4 g/dL (12.0-16.0); LYMPHOCYTES # (AUTO) 1.2 10^3/uL (1.5-3.5); MEAN CORPUSCULAR HEMOGLOBIN 30.3 pg (27.0-31.0); MEAN CORPUSCULAR HGB CONC 31.8 g/dL (32.0-36.0); MEAN CORPUSCULAR VOLUME 95.5 fL (81.0-99.0); MEAN PLATELET VOLUME 6.8 fL (7.9-10.8); MONOCYTES # (AUTO) 0.7 10^3/uL (0.0-1.0); MONOCYTES % (AUTO) 14.1 %; NEUTROPHILS # (AUTO) 2.7 10^3/uL (1.5-6.6); NEUTROPHILS % (AUTO) 57.8 %; PLT - PLATELET COUNT 287 10^3/uL (130-450); RED CELL DISTRIBUTION WIDTH 14.5 % (12.0-15.0); WHITE BLOOD COUNT 4.8 x10^3/uL (4.8-10.8)
[2018-02-12 05:26] LABS: ALBUMIN 2.8 g/dL (3.2-5.5); ALBUMIN/GLOBULIN RATIO 0.8 (1.0-2.2); BILIRUBIN,TOTAL 0.4 mg/dL (0.2-1.0); CALCIUM 11.3 mg/dL (8.5-10.3); CREATININE 1.1 mg/dL (0.4-1.0); PHOSPHORUS 3.7 mg/dL (2.5-4.6); TOTAL PROTEIN 6.2 g/dL (6.7-8.2)
[2018-02-12] MEDS: BUDESONIDE 0.5 MG/2 ML NEB INH SCH ×2 (07:31→20:13)
[2018-02-12] MEDS: oxyCODONE 5 MG TABLET PO PRN ×2 (07:46→16:08)
[2018-02-12] MEDS: ACETAMINOPHEN 325 MG TABLET PO PRN ×2 (07:46→16:09)
[2018-02-12] MEDS ORDERED: SODIUM CHLORIDE 0.9% 500 ML IV ONE (08:00)
[2018-02-12] MEDS: FAMOTIDINE 20 MG TABLET PO SCH ×2 (09:54→20:55)
[2018-02-12] MEDS: FUROSEMIDE 40 MG TABLET PO SCH ×2 (09:54→14:21)
[2018-02-12] MEDS: ASPIRIN EC 81 MG TABLET PO SCH (09:54)
[2018-02-12] MEDS: CITALOPRAM 10 MG TABLET PO SCH (09:54)
[2018-02-12] MEDS: ENOXAPARIN 40 MG/0.4 ML SYRINGE SUBQ SCH (09:55)
[2018-02-12] MEDS: SODIUM CHLORIDE FLUSH 0.9% 10 ML SYRINGE IVP SCH ×3 (09:55→16:09)
[2018-02-12] MEDS: POLYETHYLENE GLYCOL 3350 17 GM PACKET PO SCH (10:18)
[2018-02-12] MEDS: oxyCODONE ER 10 MG TABLET PO SCH ×2 (11:07→20:55)
--- NOTE | 2018-02-12 15:18 | PROVIDER PROGRESS NOTE ---
Assessment/Plan - Problem List (1) Hypercalcemia Assessment/Plan: The patient presented with hypercalcemia which was symptomatic as patient has been having nausea, vomiting, abdominal pain and bone pain. She has also been experiencing constipation, generalized weakness and fatigue. The patient's calcium was elevated when she saw her primary care physician yesterday at 13.4. In fact looking at her lab work it has been elevated since 02/04/2018 when it was 12.4. Today on presentation to the emergency department the patient's calcium is 13.0. From previous lab work it appears that the patient has a low PTH therefore the patient likely has malignancy versus vitamin D excess versus milk-alkali syndrome versus thiazide overuse versus increased bone turnover. Further history revealed that she is on a vitamin D supplement however we were concerned for possible malignancy therefore a CT of the abdomen/pelvis was performed which showed a large left renal mass. The patient has symptomatic hypercalcemia with likely cause being malignancy from likely PTH related hormone. Today Ca is down to 11.3 but patient still having significant symptoms with severe pain, nausea, generalized weakness and fatigue. Plan: Continue IV normal saline at 200 mL's per hour given her persistent symptoms and hypercalcemia Start lasix PO BID to assist in excretion of Ca Control symptoms with antiemetics and pain control Good bowel regimen Awaiting PTH related hormone Awaiting vitamin D level Holding vitamin D Monitor Ca (2) Renal mass Conclusion/Plan: Patient has a newly found left renal mass. Given her hypercalcemia this is likely malignancy. The patient also has enlarged lymph nodes. Typically malignancy associated with hypercalcemia has a poor prognosis. Plan: Treat patient's hypercalcemia while patient is hospitalized with IV fluids and lasix Patient will need to follow-up with her primary care physician to get referral for biopsies and follow-up with oncology (3) FAINA (acute kidney injury) Conclusion/Plan: The patient has acute kidney injury with a creatinine of 1.2 increased from baseline of 0.8. The patient appears to be dehydrated likely secondary to hypercalcemia. This is likely causing her some acute kidney injury. Patient also has a renal mass which could also be contributing to renal failure. 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 (4) Hypertension Conclusion/Plan: The patient has a history of hypertension but has been off of any antihypertensive medications for some time. Presentation the patient is hypertensive this is likely secondary to pain. We will attempt to control the patient's pain and monitor blood pressure. If the patient's blood pressure remains high we may need to start her on an antihypertensive. BP continues to be well controlled Qualifiers: Hypertension type: essential hypertension Qualified Code(s): I10 - Essential (primary) hypertension (5) Depression Conclusion/Plan: The patient has a history of depression. She is obviously upset from her new diagnosis of a renal mass however she seems to be stable from the standpoint of depression. We will continue the patient on Celexa and trazodone per her home medications. Qualifiers: Depression Type: unspecified Qualified Code(s): F32.9 - Major depressive disorder, single episode, unspecified (6) Asthma Conclusion/Plan: The patient has a history of asthma and is on an albuterol inhaler, DuoNeb and Flovent at home. While she is hospitalized will be placed on DuoNeb as needed along with budesonide twice daily. Stable Qualifiers: Asthma severity: mild Asthma persistence: intermittent Asthma complication type: unspecified Qualified Code(s): J45.20 - Mild intermittent asthma, uncomplicated (7) Psoriatic arthritis Conclusion/Plan: The patient has a history of cirrhotic arthritis and uses apremilast 30 mg twice daily to control symptoms at home. We will continue the patient on her home medication. She currently appears to be stable. - Current Meds Current Meds: Current Medications Generic Name Dose Route Start Last Admin Trade Name Freq PRN Reason Stop Dose Admin Acetaminophen 650 mg 02/11/18 14:11 02/12/18 07:46 Tylenol PO 650 mg Q4HR PRN Administration Pain 1 to 4 Albuterol/Ipratropium 3 ml 02/11/18 17:01 02/11/18 20:03 Duoneb INH 3 ml RTQ4H PRN Administration Wheezing Aspirin 81 mg 02/12/18 09:00 02/12/18 09:54 Ecotrin PO 81 mg DAILY MARTIN Administration Budesonide 0.5 mg 02/11/18 19:00 02/12/18 07:31 Pulmicort INH 0.5 mg RTBID MARTIN Administration Citalopram Hydrobromide 40 mg 02/12/18 09:00 02/12/18 09:54 Celexa PO 40 mg DAILY MARTIN Administration Enoxaparin Sodium 40 mg 02/12/18 09:00 02/12/18 09:55 Lovenox SUBQ 40 mg DAILY MARTIN Administration Famotidine 20 mg 02/11/18 21:00 02/12/18 09:54 Pepcid PO 20 mg BID MARTIN Administration Furosemide 40 mg 02/12/18 08:00 02/12/18 14:21 Lasix PO 40 mg BIDDIURETIC MARTIN Administration Sodium Chloride 1,000 mls @ 200 mls/hr 02/12/18 08:00 02/12/18 14:22 Normal Saline 0.9% IV 200 mls/hr .Q5H MARTIN Administration Morphine Sulfate 2 mg 02/11/18 14:11 02/12/18 03:28 Morphine (Carpuject) IVP 2 mg Q2HR PRN Administration Pain 8 to 10 Ondansetron HCl 4 mg 02/11/18 14:11 02/11/18 17:16 Zofran Inj IVP 4 mg Q6HR PRN Administration Nausea / Vomiting Oxycodone HCl 5 mg 02/11/18 14:11 02/12/18 07:46 Roxicodone PO 5 mg Q4HR PRN Administration Pain 5 to 7 Oxycodone HCl 10 mg 02/11/18 14:11 02/11/18 21:56 Roxicodone PO 10 mg Q4HR PRN Administration Pain 8 to 10 Oxycodone HCl 10 mg 02/12/18 11:00 02/12/18 11:07 Oxycontin PO 10 mg BID MARTIN Administration (Apremilast [Otezla] 1 each 02/11/18 21:00 02/12/18 09:56 30 Mg) Tab PO 1 each BID MARTIN Administration (Minocycline Hcl [ 1 each 02/11/18 21:00 02/12/18 09:56 Minocycline Hcl] 100 PO 1 each Mg) Capsule BID MARTIN Administration Polyethylene Glycol 17 gm 02/12/18 09:00 02/12/18 10:18 Miralax PO 17 gm DAILY MARTIN Administration Pramipexole Dihydrochloride 0.25 mg 02/11/18 19:00 02/11/18 18:37 Mirapex PO 0.25 mg 1900 MARTIN Administration Prazosin HCl 4 mg 02/11/18 21:00 02/11/18 21:47 Minipress PO 4 mg QPM MARTIN Administration Sodium Chloride 10 ml 02/11/18 14:05 02/11/18 17:16 Normal Saline Flush 0.9% IVP 10 ml PRN PRN Administration NEEDED PER PROVIDER ORDERS Sodium Chloride 10 ml 02/11/18 17:00 02/12/18 09:55 Normal Saline Flush 0.9% IVP Not Given 0100,0900,1700 MARTIN Trazodone HCl 100 mg 02/11/18 21:00 02/11/18 21:50 Desyrel PO Not Given QPM MARTIN - Lab Result Lab results reviewed: Yes Fish Bone Diagrams: 02/12/18 04:50 02/12/18 04:50 Other Lab Results: Abnormal Lab Results 02/11/18 02/11/18 02/11/18 10:39 11:20 11:20 RBC 3.61 10^6/uL L 10^6/uL (4.20-5.40) Hgb 10.8 g/dL L g/dL (12.0-16.0) Hct 33.0 % L % (37.0-47.0) MCHC MPV 7.5 fL L fL (7.9-10.8) Lymph # (Auto) 1.1 10^3/uL L 10^3/uL (1.5-3.5) Ionized Calcium Anion Gap Creatinine 1.2 mg/dL H mg/dL (0.4-1.0) Estimated GFR (MDRD) 46 L (>89) Glucose 112 mg/dL H mg/dL (70-100) Calcium 13.0 mg/dL H* mg/dL (8.5-10.3) B-Natriuretic Peptide Total Protein Albumin Albumin/Globulin Ratio Ur Specific [place] >=1.030 H (1.002-1.030) 02/11/18 02/11/18 02/11/18 11:20 12:18 17:10 RBC Hgb Hct MCHC MPV Lymph # (Auto) Ionized Calcium 1.67 mmol/L H* mmol/L (1.15-1.33) Anion Gap Creatinine 1.1 mg/dL H mg/dL (0.4-1.0) Estimated GFR (MDRD) 51 L (>89) Glucose 123 mg/dL H mg/dL (70-100) Calcium 12.1 mg/dL H* mg/dL (8.5-10.3) B-Natriuretic Peptide 104 pg/mL H pg/mL (5-100) Total Protein Albumin Albumin/Globulin Ratio Ur Specific [place] 02/11/18 02/12/18 02/12/18 20:55 04:50 04:50 RBC 3.10 10^6/uL L 10^6/uL (4.20-5.40) Hgb 9.4 g/dL L g/dL (12.0-16.0) Hct 29.6 % L % (37.0-47.0) MCHC 31.8 g/dL L g/dL (32.0-36.0) MPV 6.8 fL L fL (7.9-10.8) Lymph # (Auto) 1.2 10^3/uL L 10^3/uL (1.5-3.5) Ionized Calcium Anion Gap 4.0 L (6-13) Creatinine 1.1 mg/dL H mg/dL (0.4-1.0) Estimated GFR (MDRD) 57 L 51 L (>89) (>89) Glucose 116 mg/dL H mg/dL (70-100) Calcium 11.7 mg/dL H mg/dL 11.3 mg/dL H mg/dL (8.5-10.3) (8.5-10.3) B-Natriuretic Peptide Total Protein 6.2 g/dL L g/dL (6.7-8.2) Albumin 2.8 g/dL L g/dL (3.2-5.5) Albumin/Globulin Ratio 0.8 L (1.0-2.2) Ur Specific [place] - Diagnostic Imaging Results Diagnostic Imaging Results: Final report reviewed - Additional Planning Condition/Complexity: Guarded My Orders: My Active Orders 02/11/18 14:11 Acetaminophen [Tylenol] 650 mg PO Q4HR PRN Morphine Inj (Carpuject) [Morphine (Carpuject)] 2 mg IVP Q2HR PRN Ondansetron Inj [Zofran Inj] 4 mg IVP Q6HR PRN Prochlorperazine Inj [Compazine Inj] 10 mg IVP Q6HR PRN Promethazine Inj [Phenergan Inj] 25 mg IM Q6HR PRN Temazepam [Restoril] 15 mg PO QPM PRN oxyCODONE [Roxicodone] 10 mg PO Q4HR PRN oxyCODONE [Roxicodone] 5 mg PO Q4HR PRN 02/11/18 17:00 Sodium Chloride Flush 0.9% [Normal Saline Flush 0.9%] 10 ml IVP 0100,0900,1700 02/11/18 17:01 Nebulizer/MDI Tx. [RC] .BID/ Q4 PRN Ipratropium/Albuterol [Duoneb] 3 ml INH RTQ4H PRN 02/11/18 19:00 Budesonide [Pulmicort] 0.5 mg INH RTBID Pramipexole [Mirapex] 0.25 mg PO 1900 02/11/18 21:00 Famotidine [Pepcid] 20 mg PO BID Patient Own Med [Patient Own Medication] 1 each PO BID Patient Own Med [Patient Own Medication] 1 each PO BID Prazosin [Minipress] 4 mg PO QPM traZODone [Desyrel] 100 mg PO QPM 02/11/18 Dinner Regular Diet [DIET] 02/12/18 08:00 Furosemide [Lasix] 40 mg PO BIDDIURETIC Sodium Chloride 0.9% [Normal Saline 0.9%] 1,000 ml IV 200 mls/hr 02/12/18 09:00 Aspirin EC [Ecotrin] 81 mg PO DAILY Citalopram [CeleXA] 40 mg PO DAILY Enoxaparin [Lovenox] 40 mg SUBQ DAILY Polyethylene Glycol 3350 [Miralax] 17 gm PO DAILY 02/12/18 11:00 oxyCODONE ER [OxyCONTIN] 10 mg PO BID 02/13/18 05:00 CBC - COMP BLD CT W/AUTO DIFF [HEME] DAILYLAB COMPREHENSIVE METABOLIC PANEL [CHEM] DAILYLAB MAGNESIUM [CHEM] DAILYLAB PHOSPHORUS [CHEM] DAILYLAB 02/14/18 05:00 CBC - COMP BLD CT W/AUTO DIFF [HEME] DAILYLAB COMPREHENSIVE METABOLIC PANEL [CHEM] DAILYLAB MAGNESIUM [CHEM] DAILYLAB PHOSPHORUS [CHEM] DAILYLAB Plan Discussed with:: Patient, Family Time Spent: Greater than 60 minutes Subjective - Subjective Patient Reports: Abdominal Pain, Nausea, Pain (Patient states she has pain all over her body including her bones.), Other (Poor appetite, generalized weakness.) Nursing Reports: No Complaints Objective Vital Signs: Vital Signs - 24 hr 02/11/18 02/12/18 02/12/18 20:04 00:00 04:21 Temperature 36.7 C 36.7 C Heart Rate 62 63 Heart Rate [ 63 Radial] Respiratory 18 16 16 Rate Blood Pressure 116/53 L [Right Radial artery] O2 Saturation 92 92 02/12/18 02/12/18 02/12/18 05:00 07:20 07:34 Temperature 36.7 C 37.2 C Heart Rate 84 Heart Rate [ 67 79 Radial] Respiratory 18 16 20 Rate Blood Pressure 115/59 L 119/72 [Right Radial artery] O2 Saturation 94 97 02/12/18 12:45 Temperature 37.2 C Heart Rate Heart Rate [ 78 Radial] Respiratory 16 Rate Blood Pressure 117/97 H [Right Radial artery] O2 Saturation 97 Oxygen O2 Source Room air I&O (Last 24 Hrs): Intake and Output Totals x24h 02/10/18 02/11/18 02/12/18 23:59 23:59 23:59 Intake Total 3990.75 3496.667 Output Total 1100 Balance 3990.75 2396.667 General: Alert, Oriented x3, Mild distress (Pain, unable to get comfortable) HEENT: Atraumatic, PERRLA, EOMI, Mucous membr. moist/pink Neck: Supple, No JVD, No thyromegaly, +2 carotid pulse wo bruit, No LAD Lymphatic: no adenopathy Neuro: Alert, Non Focal, CN 2-12 Grossly Intact, Oriented Times 3 Cardiovascular: Regular rate, Normal S1, Normal S2, No murmurs Respiratory: Chest non-tender, No respiratory distress, Breath sounds nml Abdomen: Normal bowel sounds, Soft, No tenderness, No hepatospenomegaly Extremities: No clubbing, No cyanosis, No edema, Normal pulses Skin: No rashes, No breakdown - Results Results: Laboratory Results WBC 4.8 x10^3/uL (4.8-10.8) 02/12/18 04:50 RBC 3.10 10^6/uL (4.20-5.40) L 02/12/18 04:50 Hgb 9.4 g/dL (12.0-16.0) L 02/12/18 04:50 Hct 29.6 % (37.0-47.0) L 02/12/18 04:50 MCV 95.5 fL (81.0-99.0) 02/12/18 04:50 MCH 30.3 pg (27.0-31.0) 02/12/18 04:50 MCHC 31.8 g/dL (32.0-36.0) L 02/12/18 04:50 RDW 14.5 % (12.0-15.0) 02/12/18 04:50 Plt Count 287 10^3/uL (130-450) 02/12/18 04:50 MPV 6.8 fL (7.9-10.8) L 02/12/18 04:50 Neut # (Auto) 2.7 10^3/uL (1.5-6.6) 02/12/18 04:50 Lymph # (Auto) 1.2 10^3/uL (1.5-3.5) L 02/12/18 04:50 [place] # (Auto) 0.7 10^3/uL (0.0-1.0) 02/12/18 04:50 Eos # (Auto) 0.1 10^3/uL (0.0-0.7) 02/12/18 04:50 Baso # (Auto) 0.0 10^3/uL (0.0-0.1) 02/12/18 04:50 Absolute Nucleated RBC 0.00 x10^3/uL 02/12/18 04:50 Nucleated RBC % 0.1 /100WBC 02/12/18 04:50 VBG pH 7.383 (7.31-7.41) 02/11/18 12:18 Ionized Calcium 1.67 mmol/L (1.15-1.33) H* 02/11/18 12:18 Sodium 142 mmol/L (135-145) 02/12/18 04:50 Potassium 4.8 mmol/L (3.5-5.0) 02/12/18 04:50 Chloride 110 mmol/L (101-111) 02/12/18 04:50 Carbon Dioxide 28 mmol/L (21-32) 02/12/18 04:50 Anion Gap 4.0 (6-13) L 02/12/18 04:50 BUN 16 mg/dL (6-20) 02/12/18 04:50 Creatinine 1.1 mg/dL (0.4-1.0) H 02/12/18 04:50 Estimated GFR (MDRD) 51 (>89) L 02/12/18 04:50 Glucose 92 mg/dL (70-100) 02/12/18 04:50 Calcium 11.3 mg/dL (8.5-10.3) H 02/12/18 04:50 Ionized Calcium NO 02/11/18 20:55 Phosphorus 3.7 mg/dL (2.5-4.6) 02/12/18 04:50 Magnesium 2.0 mg/dL (1.7-2.8) 02/12/18 04:50 Total Bilirubin 0.4 mg/dL (0.2-1.0) 02/12/18 04:50 AST 11 IU/L (10-42) 02/12/18 04:50 ALT 10 IU/L (10-60) 02/12/18 04:50 Alkaline Phosphatase 61 IU/L (42-121) 02/12/18 04:50 B-Natriuretic Peptide 104 pg/mL (5-100) H 02/11/18 11:20 Total Protein 6.2 g/dL (6.7-8.2) L 02/12/18 04:50 Albumin 2.8 g/dL (3.2-5.5) L 02/12/18 04:50 Globulin 3.4 g/dL (2.1-4.2) 02/12/18 04:50 Albumin/Globulin Ratio 0.8 (1.0-2.2) L 02/12/18 04:50 Lipase 25 U/L (22-51) 02/11/18 11:20 CA 125 Antigen 3.7 U/mL (0.0-35.0) 02/11/18 11:20 Urine Color YELLOW 02/11/18 10:39 Urine Clarity CLEAR (CLEAR) 02/11/18 10:39 Urine pH 5.5 PH (5.0-7.5) 02/11/18 10:39 Ur Specific [place] >=1.030 (1.002-1.030) H 02/11/18 10:39 Urine Protein NEGATIVE mg/dL (NEGATIVE) 02/11/18 10:39 Urine Glucose (UA) NEGATIVE mg/dL (NEGATIVE) 02/11/18 10:39 Urine Ketones NEGATIVE mg/dL (NEGATIVE) 02/11/18 10:39 Urine Occult Blood TRACE-INTA (NEGATIVE) 02/11/18 10:39 Urine Nitrite NEGATIVE (NEGATIVE) 02/11/18 10:39 Urine Bilirubin NEGATIVE (NEGATIVE) 02/11/18 10:39 Urine Urobilinogen 0.2 (NORMAL) E.U./dL (NORMAL) 02/11/18 10:39 Ur Leukocyte Esterase NEGATIVE (NEGATIVE) 02/11/18 10:39 Ur Microscopic Review NOT INDICATED 02/11/18 10:39 Urine Culture Comments NOT INDICATED 02/11/18 10:39 - Procedures Procedures: Procedures CARPAL TUNNEL RELEASE (03/31/14) ABX Reporting Has patient been on IV antibiotics over the past 48 hours?: No Current Medications - Current Medications Current Medications: Active Medications Generic Name Dose Route Start Last Admin Trade Name Freq PRN Reason Stop Dose Admin Acetaminophen 650 mg 02/11/18 14:11 02/12/18 07:46 Tylenol PO 650 mg Q4HR PRN Administration Pain 1 to 4 Albuterol/Ipratropium 3 ml 02/11/18 17:01 02/11/18 20:03 Duoneb INH 3 ml RTQ4H PRN Administration Wheezing Aspirin 81 mg 02/12/18 09:00 02/12/18 09:54 Ecotrin PO 81 mg DAILY MARTIN Administration Budesonide 0.5 mg 02/11/18 19:00 02/12/18 07:31 Pulmicort INH 0.5 mg RTBID MARTIN Administration Citalopram Hydrobromide 40 mg 02/12/18 09:00 02/12/18 09:54 Celexa PO 40 mg DAILY MARTIN Administration Enoxaparin Sodium 40 mg 02/12/18 09:00 02/12/18 09:55 Lovenox SUBQ 40 mg DAILY MARTIN Administration Famotidine 20 mg 02/11/18 21:00 02/12/18 09:54 Pepcid PO 20 mg BID MARTIN Administration Furosemide 40 mg 02/12/18 08:00 02/12/18 14:21 Lasix PO 40 mg BIDDIURETIC MARTIN Administration Sodium Chloride 1,000 mls @ 200 mls/hr 02/12/18 08:00 02/12/18 14:22 Normal Saline 0.9% IV 200 mls/hr .Q5H MARTIN Administration Morphine Sulfate 2 mg 02/11/18 14:11 02/12/18 03:28 Morphine (Carpuject) IVP 2 mg Q2HR PRN Administration Pain 8 to 10 Ondansetron HCl 4 mg 02/11/18 14:11 02/11/18 17:16 Zofran Inj IVP 4 mg Q6HR PRN Administration Nausea / Vomiting Oxycodone HCl 5 mg 02/11/18 14:11 02/12/18 07:46 Roxicodone PO 5 mg Q4HR PRN Administration Pain 5 to 7 Oxycodone HCl 10 mg 02/11/18 14:11 02/11/18 21:56 Roxicodone PO 10 mg Q4HR PRN Administration Pain 8 to 10 Oxycodone HCl 10 mg 02/12/18 11:00 02/12/18 11:07 Oxycontin PO 10 mg BID MARTIN Administration (Apremilast [Otezla] 1 each 02/11/18 21:00 02/12/18 09:56 30 Mg) Tab PO 1 each BID MARTIN Administration (Minocycline Hcl [ 1 each 02/11/18 21:00 02/12/18 09:56 Minocycline Hcl] 100 PO 1 each Mg) Capsule BID MARTIN Administration Polyethylene Glycol 17 gm 02/12/18 09:00 02/12/18 10:18 Miralax PO 17 gm DAILY MARTIN Administration Pramipexole Dihydrochloride 0.25 mg 02/11/18 19:00 02/11/18 18:37 Mirapex PO 0.25 mg 1900 MARTIN Administration Prazosin HCl 4 mg 02/11/18 21:00 02/11/18 21:47 Minipress PO 4 mg QPM MARTIN Administration Prochlorperazine Edisylate 10 mg 02/11/18 14:11 Compazine Inj IVP Q6HR PRN Nausea / Vomiting Promethazine HCl 25 mg 02/11/18 14:11 Phenergan Inj IM Q6HR PRN Nausea / Vomiting Sodium Chloride 10 ml 02/11/18 14:05 02/11/18 17:16 Normal Saline Flush 0.9% IVP 10 ml PRN PRN Administration NEEDED PER PROVIDER ORDERS Sodium Chloride 10 ml 02/11/18 17:00 02/12/18 09:55 Normal Saline Flush 0.9% IVP Not Given 0100,0900,1700 MARTIN Temazepam 15 mg 02/11/18 14:11 Restoril PO QPM PRN Insomnia Trazodone HCl 100 mg 02/11/18 21:00 02/11/18 21:50 Desyrel PO Not Given QPM MARTIN Potassium Chloride [Klor-Con M20] 20 meq PO DAILY 09/02/13 Prazosin HCl 4 mg PO QPM 09/02/13 Ranitidine HCl [Zantac] 150 mg PO DAILY 03/28/14 Aspirin [Aspir-Low] 81 mg ORAL DAILY 03/14/15 Citalopram [CeleXA] 40 mg ORAL DAILY 03/14/15 Apremilast [Otezla] 30 mg PO BID 08/12/16 Ergocalciferol [Vitamin D2] 50,000 units PO MOFR@0900 08/12/16 Pramipexole [Mirapex] 0.25 mg PO 1900 08/12/16 Albuterol Sulfate [Proair Hfa Inhaler] 2 puffs INH Q4H PRN 02/11/18 Fluticasone 110 Mcg [Flovent] 2 puffs INH BID 02/11/18 Ipratropium/Albuterol Sulfate [Iprat-Albut 0.5-3(2.5) mg/3 ml] 3 ml INH QID PRN 02/11/18 Minocycline HCl 100 mbq PO BID 02/11/18 Naproxen 500 mg PO BID PRN 02/11/18 hydrOXYzine HCl [Hydroxyzine HCl] 25 mg PO BID PRN 02/11/18 traZODone [Desyrel] 100 mg PO QPM 02/11/18
[2018-02-12] MEDS: ONDANSETRON 4 MG/2 ML VIAL IVP PRN (16:09)
[2018-02-12] MEDS: PRAMIPEXOLE 0.25 MG TABLET PO SCH (19:14)
[2018-02-12] MEDS: SODIUM CHLORIDE FLUSH 0.9% 10 ML SYRINGE IVP PRN (19:42)
[2018-02-12] MEDS: PROCHLORPERAZINE 10 MG/2 ML VIAL IVP PRN (19:42)
[2018-02-12] MEDS: DOCUSATE SODIUM 250 MG CAPSULE PO SCH (20:55)
[2018-02-12] MEDS: PRAZOSIN 1 MG CAPSULE PO SCH (20:56)
[2018-02-12] MEDS: traZODone 50 MG TABLET PO SCH (20:57)
[2018-02-13] MEDS: oxyCODONE 5 MG TABLET PO PRN ×3 (00:24→23:58)
[2018-02-13] MEDS: SODIUM CHLORIDE 0.9% 1,000 ML IV SCH ×4 (00:57→16:22)
[2018-02-13] MEDS: SODIUM CHLORIDE FLUSH 0.9% 10 ML SYRINGE IVP SCH ×4 (00:58→23:57)
[2018-02-13 05:50] LABS: BASOPHILS % (AUTO) 0.8 %; EOSINOPHILS % (AUTO) 0.8 %; HGB - HEMOGLOBIN 8.7 g/dL (12.0-16.0); LYMPHOCYTES # (AUTO) 0.8 10^3/uL (1.5-3.5); LYMPHOCYTES % (AUTO) 21.6 %; MEAN CORPUSCULAR HGB CONC 31.4 g/dL (32.0-36.0); MEAN CORPUSCULAR VOLUME 95.6 fL (81.0-99.0); MEAN PLATELET VOLUME 6.7 fL (7.9-10.8); MONOCYTES # (AUTO) 0.5 10^3/uL (0.0-1.0); MONOCYTES % (AUTO) 14.2 %; NEUTROPHILS # (AUTO) 2.4 10^3/uL (1.5-6.6); NEUTROPHILS % (AUTO) 62.6 %; PLT - PLATELET COUNT 240 10^3/uL (130-450); RED BLOOD COUNT 2.91 10^6/uL (4.20-5.40); RED CELL DISTRIBUTION WIDTH 14.2 % (12.0-15.0); WHITE BLOOD COUNT 3.9 x10^3/uL (4.8-10.8)
[2018-02-13] MEDS: FUROSEMIDE 40 MG TABLET PO SCH (05:55)
[2018-02-13 06:35] LABS: ALBUMIN 2.5 g/dL (3.2-5.5); ALBUMIN/GLOBULIN RATIO 0.8 (1.0-2.2); BILIRUBIN,TOTAL 0.4 mg/dL (0.2-1.0); CALCIUM 9.1 mg/dL (8.5-10.3); MAGNESIUM 1.8 mg/dL (1.7-2.8); PHOSPHORUS 2.4 mg/dL (2.5-4.6); TOTAL PROTEIN 5.7 g/dL (6.7-8.2)
[2018-02-13] MEDS: BUDESONIDE 0.5 MG/2 ML NEB INH SCH ×2 (07:09→20:50)
[2018-02-13] MEDS: ASPIRIN EC 81 MG TABLET PO SCH (08:50)
[2018-02-13] MEDS: SENNA 8.6 MG TABLET PO SCH (08:50)
[2018-02-13] MEDS: DOCUSATE SODIUM 250 MG CAPSULE PO SCH (08:51)
[2018-02-13] MEDS: CITALOPRAM 10 MG TABLET PO SCH (08:51)
[2018-02-13] MEDS: oxyCODONE ER 10 MG TABLET PO SCH ×2 (08:51→20:03)
[2018-02-13] MEDS: POLYETHYLENE GLYCOL 3350 17 GM PACKET PO SCH (08:52)
[2018-02-13] MEDS: FAMOTIDINE 20 MG TABLET PO SCH ×2 (08:52→19:40)
[2018-02-13] MEDS: ENOXAPARIN 40 MG/0.4 ML SYRINGE SUBQ SCH (08:52)
[2018-02-13] MEDS: ONDANSETRON 4 MG/2 ML VIAL IVP PRN (11:16)
[2018-02-13] MEDS ORDERED: MAGNESIUM HYDROXIDE 2,400 MG/30 ML UDC PO PRN (11:48)
[2018-02-13] MEDS: PROCHLORPERAZINE 10 MG/2 ML VIAL IVP PRN ×2 (12:17→23:58)
[2018-02-13] MEDS: SODIUM CHLORIDE FLUSH 0.9% 10 ML SYRINGE IVP PRN (12:18)
--- NOTE | 2018-02-13 16:03 | PROVIDER PROGRESS NOTE ---
Assessment/Plan - Problem List (1) Hypercalcemia Assessment/Plan: Ca was normal this am. Will stop iv hydration at 200 cc/hr and decrease to daily Lasix. Will follow Ca daily. If normal tomorrow, [facility] patient with close F/U by her PCP. If rising Ca tomorrow, will start Pomidronate or Zomeda and again close F/U by her PCP. (2) Renal mass Assessment/Plan: Oncol consult bt Keena Williamson NP appreciated. Outpatient evaluation will need to be started. (3) Nausea and vomiting Qualifiers: Vomiting type: unspecified Vomiting Intractability: intractable Qualified Code(s): R11.2 - Nausea with vomiting, unspecified Assessment/Plan: Improved. She ay still have some nausea from constipation, narcotics and dehydration. (4) Anemia Qualifiers: Anemia type: unspecified type Qualified Code(s): D64.9 - Anemia, unspecified Assessment/Plan: This is likely from hydration at 200 cc/hr for 2 days. Will stop iv fluids and order Iron panel, B12 and folate levels and guaic kayy. Follow CBC daily. (5) Psoriatic arthritis Assessment/Plan: Pt on Minocycline and steroids for this and is stable currently. - Current Meds Current Meds: Current Medications Generic Name Dose Route Start Last Admin Trade Name Freq PRN Reason Stop Dose Admin Acetaminophen 650 mg 02/11/18 14:11 02/12/18 16:09 Tylenol PO 650 mg Q4HR PRN Administration Pain 1 to 4 Albuterol/Ipratropium 3 ml 02/11/18 17:01 02/11/18 20:03 Duoneb INH 3 ml RTQ4H PRN Administration Wheezing Aspirin 81 mg 02/12/18 09:00 02/13/18 08:50 Ecotrin PO 81 mg DAILY MARTIN Administration Budesonide 0.5 mg 02/11/18 19:00 02/13/18 07:09 Pulmicort INH 0.5 mg RTBID MARTIN Administration Citalopram Hydrobromide 40 mg 02/12/18 09:00 02/13/18 08:51 Celexa PO 40 mg DAILY MARTIN Administration Docusate Sodium 250 - 500 mg 02/12/18 21:00 02/13/18 08:51 Colace 250mg Capsule PO 250 mg DAILY MARTIN Administration Enoxaparin Sodium 40 mg 02/12/18 09:00 02/13/18 08:52 Lovenox SUBQ 40 mg DAILY MARTIN Administration Famotidine 20 mg 02/11/18 21:00 02/13/18 08:52 Pepcid PO 20 mg BID MARTIN Administration Sodium Chloride 1,000 mls @ 40 mls/hr 02/13/18 09:29 02/13/18 09:37 Normal Saline 0.9% IV 40 mls/hr .Q25H MARTIN Administration Magnesium Hydroxide 2,400 mg 02/13/18 11:48 02/13/18 12:59 Milk Of Magnesia PO 02/17/18 11:47 2,400 mg ONCE PRN Administration Constipation Morphine Sulfate 2 mg 02/11/18 14:11 02/12/18 03:28 Morphine (Carpuject) IVP 2 mg Q2HR PRN Administration Pain 8 to 10 Ondansetron HCl 4 mg 02/11/18 14:11 02/13/18 11:16 Zofran Inj IVP 4 mg Q6HR PRN Administration Nausea / Vomiting Oxycodone HCl 5 mg 02/11/18 14:11 02/13/18 00:24 Roxicodone PO 5 mg Q4HR PRN Administration Pain 5 to 7 Oxycodone HCl 10 mg 02/11/18 14:11 02/13/18 05:55 Roxicodone PO 10 mg Q4HR PRN Administration Pain 8 to 10 Oxycodone HCl 10 mg 02/12/18 11:00 02/13/18 08:51 Oxycontin PO 10 mg BID MARTIN Administration (Apremilast [Otezla] 1 each 02/11/18 21:00 02/13/18 08:53 30 Mg) Tab PO 1 each BID MARTIN Administration (Minocycline Hcl [ 1 each 02/11/18 21:00 02/13/18 08:53 Minocycline Hcl] 100 PO 1 each Mg) Capsule BID MARTIN Administration Polyethylene Glycol 17 gm 02/12/18 09:00 02/13/18 08:52 Miralax PO 17 gm DAILY MARTIN Administration Pramipexole Dihydrochloride 0.25 mg 02/11/18 19:00 02/12/18 19:14 Mirapex PO 0.25 mg 1900 MARTIN Administration Prazosin HCl 4 mg 02/11/18 21:00 02/12/18 20:56 Minipress PO 4 mg QPM MARTIN Administration Prochlorperazine Edisylate 10 mg 02/11/18 14:11 02/13/18 12:17 Compazine Inj IVP 10 mg Q6HR PRN Administration Nausea / Vomiting Senna 8.6 - 17.2 mg 02/13/18 09:00 02/13/18 08:50 Senokot PO 8.6 mg DAILY MARTIN Administration Sodium Chloride 10 ml 02/11/18 14:05 02/13/18 12:18 Normal Saline Flush 0.9% IVP 10 ml PRN PRN Administration NEEDED PER PROVIDER ORDERS Sodium Chloride 10 ml 02/11/18 17:00 02/13/18 09:07 Normal Saline Flush 0.9% IVP Not Given 0100,0900,1700 MARTIN Trazodone HCl 100 mg 02/11/18 21:00 02/12/18 20:57 Desyrel PO Not Given QPM MARTIN - Lab Result Fish Bone Diagrams: 02/13/18 05:31 02/13/18 05:31 - Additional Planning My Orders: My Active Orders 02/13/18 Consult [Oncology Consult] [CONS] Routine 02/13/18 09:29 Sodium Chloride 0.9% [Normal Saline 0.9%] 1,000 ml IV 40 mls/hr 02/13/18 11:48 Magnesium Hydroxide [Milk of Magnesia] 2,400 mg PO ONCE PRN 02/14/18 09:00 Furosemide [Lasix] 40 mg PO DAILY Subjective - Subjective Patient Reports: Feeling Better, Constipation Nursing Reports: Constipation, Nausea Objective Vital Signs: Vital Signs - 24 hr 02/12/18 02/12/18 02/12/18 20:15 20:18 20:32 Temperature Heart Rate Heart Rate [ 66 Radial] Respiratory 16 20 Rate Blood Pressure [Right Radial artery] O2 Saturation 72 L 74 L 97 02/12/18 02/13/18 02/13/18 21:22 00:25 07:12 Temperature 37.4 C 37.4 C Heart Rate 665 H Heart Rate [ 64 68 Radial] Respiratory 20 18 16 Rate Blood Pressure 130/64 127/67 [Right Radial artery] O2 Saturation 98 100 02/13/18 02/13/18 08:00 15:28 Temperature 36.7 C 37.0 C Heart Rate Heart Rate [ 60 55 L Radial] Respiratory 18 18 Rate Blood Pressure 119/56 L 110/57 L [Right Radial artery] O2 Saturation 91 L 92 Oxygen O2 Source Room air I&O (Last 24 Hrs): Intake and Output Totals x24h 02/11/18 02/12/18 02/13/18 23:59 23:59 23:59 Intake Total 3990.75 4826.667 3674.667 Output Total 2300 750 Balance 3990.75 2526.667 2924.667 General: Alert, Oriented x3 HEENT: Mucous membr. moist/pink Neck: Supple, Other (obese) Neuro: Non Focal Cardiovascular: Regular rate, No murmurs Respiratory: No respiratory distress, Breath sounds nml Abdomen: Other (Distended, hyperactive bowel sounds, non-tender) Extremities: No edema - Results Results: Laboratory Results WBC 3.9 x10^3/uL (4.8-10.8) L 02/13/18 05:31 RBC 2.91 10^6/uL (4.20-5.40) L 02/13/18 05:31 Hgb 8.7 g/dL (12.0-16.0) L 02/13/18 05:31 Hct 27.8 % (37.0-47.0) L 02/13/18 05:31 MCV 95.6 fL (81.0-99.0) 02/13/18 05:31 MCH 30.0 pg (27.0-31.0) 02/13/18 05:31 MCHC 31.4 g/dL (32.0-36.0) L 02/13/18 05:31 RDW 14.2 % (12.0-15.0) 02/13/18 05:31 Plt Count 240 10^3/uL (130-450) 02/13/18 05:31 MPV 6.7 fL (7.9-10.8) L 02/13/18 05:31 Neut # (Auto) 2.4 10^3/uL (1.5-6.6) 02/13/18 05:31 Lymph # (Auto) 0.8 10^3/uL (1.5-3.5) L 02/13/18 05:31 Mclean # (Auto) 0.5 10^3/uL (0.0-1.0) 02/13/18 05:31 Eos # (Auto) 0.0 10^3/uL (0.0-0.7) 02/13/18 05:31 Baso # (Auto) 0.0 10^3/uL (0.0-0.1) 02/13/18 05:31 Absolute Nucleated RBC 0.00 x10^3/uL 02/13/18 05:31 Nucleated RBC % 0.1 /100WBC 02/13/18 05:31 VBG pH 7.383 (7.31-7.41) 02/11/18 12:18 Ionized Calcium 1.67 mmol/L (1.15-1.33) H* 02/11/18 12:18 Sodium 133 mmol/L (135-145) L 02/13/18 05:31 Potassium 3.9 mmol/L (3.5-5.0) 02/13/18 05:31 Chloride 105 mmol/L (101-111) 02/13/18 05:31 Carbon Dioxide 27 mmol/L (21-32) 02/13/18 05:31 Anion Gap 1.0 (6-13) L 02/13/18 05:31 BUN 13 mg/dL (6-20) 02/13/18 05:31 Creatinine 1.0 mg/dL (0.4-1.0) 02/13/18 05:31 Estimated GFR (MDRD) 57 (>89) L 02/13/18 05:31 Glucose 92 mg/dL (70-100) 02/13/18 05:31 Calcium 9.1 mg/dL (8.5-10.3) 02/13/18 05:31 Ionized Calcium NO 02/11/18 20:55 Phosphorus 2.4 mg/dL (2.5-4.6) L 02/13/18 05:31 Magnesium 1.8 mg/dL (1.7-2.8) 02/13/18 05:31 Total Bilirubin 0.4 mg/dL (0.2-1.0) 02/13/18 05:31 AST 16 IU/L (10-42) 02/13/18 05:31 ALT 14 IU/L (10-60) 02/13/18 05:31 Alkaline Phosphatase 56 IU/L (42-121) 02/13/18 05:31 B-Natriuretic Peptide 104 pg/mL (5-100) H 02/11/18 11:20 Total Protein 5.7 g/dL (6.7-8.2) L 02/13/18 05:31 Albumin 2.5 g/dL (3.2-5.5) L 02/13/18 05:31 Globulin 3.2 g/dL (2.1-4.2) 02/13/18 05:31 Albumin/Globulin Ratio 0.8 (1.0-2.2) L 02/13/18 05:31 Lipase 25 U/L (22-51) 02/11/18 11:20 CA 125 Antigen 3.7 U/mL (0.0-35.0) 02/11/18 11:20 Urine Color YELLOW 02/11/18 10:39 Urine Clarity CLEAR (CLEAR) 02/11/18 10:39 Urine pH 5.5 PH (5.0-7.5) 02/11/18 10:39 Ur Specific [place] >=1.030 (1.002-1.030) H 02/11/18 10:39 Urine Protein NEGATIVE mg/dL (NEGATIVE) 02/11/18 10:39 Urine Glucose (UA) NEGATIVE mg/dL (NEGATIVE) 02/11/18 10:39 Urine Ketones NEGATIVE mg/dL (NEGATIVE) 02/11/18 10:39 Urine Occult Blood TRACE-INTA (NEGATIVE) 02/11/18 10:39 Urine Nitrite NEGATIVE (NEGATIVE) 02/11/18 10:39 Urine Bilirubin NEGATIVE (NEGATIVE) 02/11/18 10:39 Urine Urobilinogen 0.2 (NORMAL) E.U./dL (NORMAL) 02/11/18 10:39 Ur Leukocyte Esterase NEGATIVE (NEGATIVE) 02/11/18 10:39 Ur Microscopic Review NOT INDICATED 02/11/18 10:39 Urine Culture Comments NOT INDICATED 02/11/18 10:39 - Procedures Procedures: Procedures CARPAL TUNNEL RELEASE (03/31/14)
[2018-02-13] MEDS: MORPHINE 2 MG/ML CARPUJECT IVP PRN ×2 (16:21→22:05)
[2018-02-13] MEDS: BISACODYL 5 MG TABLET PO SCH (17:30)
[2018-02-13] MEDS: PRAMIPEXOLE 0.25 MG TABLET PO SCH (19:34)
[2018-02-13] MEDS: PRAZOSIN 1 MG CAPSULE PO SCH (20:02)
[2018-02-13] MEDS: traZODone 50 MG TABLET PO SCH (20:03)
[2018-02-13] MEDS ORDERED: DOCUSATE SODIUM 250 MG CAPSULE PO SCH (21:00)
[2018-02-13] MEDS: ACETAMINOPHEN 325 MG TABLET PO PRN (23:58)
[2018-02-14] MEDS: oxyCODONE 5 MG TABLET PO PRN (05:43)
[2018-02-14] MEDS: SODIUM CHLORIDE FLUSH 0.9% 10 ML SYRINGE IVP PRN (05:43)
[2018-02-14] MEDS: PROCHLORPERAZINE 10 MG/2 ML VIAL IVP PRN (05:43)
[2018-02-14] MEDS: ACETAMINOPHEN 325 MG TABLET PO PRN (05:44)
[2018-02-14 05:57] LABS: BASOPHILS % (AUTO) 0.6 %; EOSINOPHILS # (AUTO) 0.1 10^3/uL (0.0-0.7); EOSINOPHILS % (AUTO) 1.8 %; HGB - HEMOGLOBIN 9.2 g/dL (12.0-16.0); LYMPHOCYTES # (AUTO) 1.2 10^3/uL (1.5-3.5); LYMPHOCYTES % (AUTO) 28.5 %; MEAN CORPUSCULAR HEMOGLOBIN 30.5 pg (27.0-31.0); MEAN CORPUSCULAR HGB CONC 32.2 g/dL (32.0-36.0); MEAN CORPUSCULAR VOLUME 94.6 fL (81.0-99.0); MEAN PLATELET VOLUME 6.8 fL (7.9-10.8); MONOCYTES # (AUTO) 0.9 10^3/uL (0.0-1.0); MONOCYTES % (AUTO) 20.2 %; NEUTROPHILS # (AUTO) 2.1 10^3/uL (1.5-6.6); NEUTROPHILS % (AUTO) 48.9 %; PLT - PLATELET COUNT 263 10^3/uL (130-450); RED BLOOD COUNT 3.02 10^6/uL (4.20-5.40); RED CELL DISTRIBUTION WIDTH 14.2 % (12.0-15.0); WHITE BLOOD COUNT 4.3 x10^3/uL (4.8-10.8)
[2018-02-14 06:33] LABS: FOLATE 15.63 ng/mL (5.90 - >24.8)
[2018-02-14 07:10] LABS: ALBUMIN 2.6 g/dL (3.2-5.5); BILIRUBIN,TOTAL 0.2 mg/dL (0.2-1.0); CALCIUM 8.9 mg/dL (8.5-10.3); CREATININE 0.9 mg/dL (0.4-1.0); MAGNESIUM 2.3 mg/dL (1.7-2.8); TOTAL PROTEIN 5.7 g/dL (6.7-8.2)
[2018-02-14 07:11] LABS: ALBUMIN/GLOBULIN RATIO 0.8 (1.0-2.2)
[2018-02-14] MEDS: BUDESONIDE 0.5 MG/2 ML NEB INH SCH (07:43)
[2018-02-14 08:11] VITALS: BP 130/64
--- NOTE | 2018-02-14 08:27 | Discharge Plan ---
Discharge Plan Disposition: 01 Home, Self Care Condition: Stable Prescriptions: Bisacodyl [Dulcolax] 10 mg PO BID PRN #14 tablet PRN Reason: Constipation Diet: Low Sodium Activity Restrictions: Activity as Tolerated Shower Restrictions: No Additional Instructions or Follow Up instructions: You were treated for a high blood calcium level. You need to see your PCP within a week for a follow-up blood calcium test and for planning out the evaluation of the mass of the kidney that was found on imaging. Resume your pre-hospital medications. A prescription for Dulcolax was ordered for the constipation. Make sure that any of your vitamins and supplements DO NOT contain Calcium. Also, eat a diet that is low in Calcium. If you have new or worsening symptoms, come to the ER. No Smoking: If you smoke, Please STOP! Call for help. Follow-up with: Fareed Sanderson MD [Primary Care Provider] -
[2018-02-14] MEDS: oxyCODONE ER 10 MG TABLET PO SCH (08:29)
[2018-02-14] MEDS: POLYETHYLENE GLYCOL 3350 17 GM PACKET PO SCH (08:29)
[2018-02-14] MEDS: ENOXAPARIN 40 MG/0.4 ML SYRINGE SUBQ SCH (08:29)
[2018-02-14] MEDS: BISACODYL 5 MG TABLET PO SCH (08:30)
[2018-02-14] MEDS: DOCUSATE SODIUM 250 MG CAPSULE PO SCH (08:30)
[2018-02-14] MEDS: FAMOTIDINE 20 MG TABLET PO SCH (08:30)
[2018-02-14] MEDS: CITALOPRAM 10 MG TABLET PO SCH (08:30)
[2018-02-14] MEDS: SENNA 8.6 MG TABLET PO SCH (08:30)
[2018-02-14] MEDS: ASPIRIN EC 81 MG TABLET PO SCH (08:30)
[2018-02-14] MEDS: SODIUM CHLORIDE FLUSH 0.9% 10 ML SYRINGE IVP SCH (08:31)
[2018-02-14] MEDS ORDERED: FUROSEMIDE 40 MG TABLET PO SCH ×2 (09:00)
--- NOTE | 2018-02-18 22:11 | DISCHARGE SUMMARY ---
Physician: Loraine Lopez MD DATE OF ADMISSION: 02/12/2018 DATE OF DISCHARGE: 02/14/2018 HISTORY OF PRESENT ILLNESS: This is a 62-year-old white female with a history of psoriatic arthritis on Otezla, history of CVAs, COPD, obesity, depression, GERD. The patient was found to have elevated calcium on outpatient testing and was told to hydrate with liquids and that further workup would be needed. The patient developed nausea and vomiting as well as diffuse pain, but specifically severe pain in the right lower quadrant of the abdomen and was told to come to the emergency room. She was found to have a serum calcium level of 13. She also had complaints of constipation, generalized weakness and was admitted for management. HOSPITAL COURSE AND DISCHARGE DIAGNOSES 1. Hypercalcemia. Her admission serum calcium was 13, which progressively declined throughout her stay. The PTH was low, suggesting that her hypercalcemia was from malignancy, vitamin D excess, milk-alkali syndrome, thiazide use or increased bone turnover. She was on a vitamin D supplement. She did undergo a CT of the abdomen and pelvis, which revealed a left renal mass with prominent retroperitoneal lymph nodes, but no renal vein invasion. The patient was managed with IV hydration of saline at 200 mL an hour for over 48 hours. This resulted in a drop of her calcium level after 2 days to 9.1 and at discharge, it was 8.9. She knows to have close followup with her PCP and workup with an Oncologist. 2. Renal mass. CT of the abdomen and pelvis, revealed a left renal mass with prominent retroperitoneal lymph nodes. The patient had a consultation by Keena Williamson, nurse practitioner from the [facility] [place] clinic. She reviewed outpatient workup that the patient would undergo and the patient and family were planning that. Her admission creatinine was 1.2, which improved to 1.0, then 0.9 at discharge. 3. Nausea and vomiting. The patient was treated with antiemetics, IV hydration, and she eventually was able to tolerate a liquid diet and then a bland diet. The Oncology consult suggested that her nausea was from being constipated, being on narcotics for pain and being dehydrated. She was sent home with medications for constipation. 4. Anemia. This was felt to be from volume dilution from the hydration. Her admission hemoglobin was 10.8, which decreased to 8.7, and on the day of discharge, it was 9.2. She underwent lab test showing a normal serum vitamin B12 level of 891, normal folate level of 15 and low iron panel with a total iron of 18, TIBC 204, percent saturation 99%. Supplemental iron was not started at discharge because of the risk of further adding to the significant constipation. 5. Psoriatic arthritis. The patient was kept on her minocycline for psoriasis and her Otezla for her psoriatic arthritis. 6. Constipation. The patient had treatment with the standard bowel protocol and was sent home with medications for constipation. ALLERGIES: IODINE, LATEX, RUBBER, BEE STINGS AND PAPER TAPE. MEDICATIONS AT DISCHARGE: 1. Albuterol inhaler p.r.n. 2. Otezla 30 mg b.i.d. 3. Aspirin 81 mg daily. 4. Celexa 40 mg daily.. 5. D2 50,000 units on Mondays and Fridays. 6. Flovent 2 puffs b.i.d. 7. Hydroxyzine 25 mg b.i.d. p.r.n. 8. Ipratropium albuterol inhaler q.i.d. p.r.n. 9. Minocycline 100 mg p.o. b.i.d. 10. Naprosyn 500 mg b.i.d. p.r.n. 11. Potassium chloride 20 mEq daily. 12. Mirapex 0.25 mg daily. 13. Prazosin 4 mg every night. 14. Zantac 150 mg daily. 15. Desyrel 100 mg every night. 16. New: Dulcolax 10 mg p.o. b.i.d. p.r.n. constipation. LABORATORY AND IMAGING: Reviewed and summarized above. CONDITION AT DISCHARGE: Stable. PHYSICAL EXAMINATION: VITAL SIGNS: Blood pressure 130/64, pulse of 69 in sinus rhythm, afebrile, room air saturation 95%. HEENT: Unremarkable. NECK: Obese. CHEST: Clear. HEART: Heart sounds are distant. ABDOMEN: Obese with pannus. No tenderness. Hyperactive bowel sounds. EXTREMITIES: Legs with trace pedal edema. NEUROLOGIC: Intact. CODE STATUS: FULL CODE. FOLLOWUP: Patient was advised to see her PCP within a week and to have a referral to an oncologist soon. Time required to complete this entire discharge, chart review, prescription orders, dictation: 60 minutes. cc: Fareed Sanderson MD TD: 02/18/2018 15:41 MTDD
== END 2018-02-14 11:50 | disposition home or self-care (01) | DRG 641 ==
LOC: ED 10:21 → MS2 14:05 → OBSVTOIN 02-12 10:11
PROVIDERS: ADMIT Internal Medicine; ATTEND Internal Medicine
DX: E83.52 Hypercalcemia (principal); N17.9 Acute kidney failure, unspecified; N28.89 Other specified disorders of kidney and ureter; R59.0 Localized enlarged lymph nodes; D64.9 Anemia, unspecified; L40.50 Arthropathic psoriasis, unspecified; G43.909 Migraine, unspecified, not intractable, without status migrainosus; I69.398 Other sequelae of cerebral infarction; R53.1 Weakness; E11.9 Type 2 diabetes mellitus without complications; I10 Essential (primary) hypertension; K21.9 Gastro-esophageal reflux disease without esophagitis; F32.9 Major depressive disorder, single episode, unspecified; J44.9 Chronic obstructive pulmonary disease, unspecified; J45.20 Mild intermittent asthma, uncomplicated; M17.0 Bilateral primary osteoarthritis of knee; E66.01 Morbid (severe) obesity due to excess calories; E66.9 Obesity, unspecified; Z79.899 Other long term (current) drug therapy; Z80.0 Family history of malignant neoplasm of digestive organs; Z80.49 Family history of malignant neoplasm of other genital organs; Z72.0 Tobacco use; Z79.82 Long term (current) use of aspirin; Z79.51 Long term (current) use of inhaled steroids
CPT/HCPCS: 36415; 74177; 80048; 80053; 81001; 81003; 82272; 82330; 82607; 82652; 82746; 83519; 83540; 83690; 83735; 83880; 84100; 84466; 85025; 86304; 87086; 93005; 94640; 96361; 96365; 96375; 96376; 99283; 99284

== ENCOUNTER 2018-02-20 08:00 | Outpatient (CLI) | payer MEDICAID ==
[2018-02-20 19:28] LABS: ALBUMIN 3.3 g/dL (3.2-5.5); ALBUMIN/GLOBULIN RATIO 0.9 (1.0-2.2); BILIRUBIN,TOTAL 0.6 mg/dL (0.2-1.0); CALCIUM 10.4 mg/dL (8.5-10.3); CREATININE 0.9 mg/dL (0.4-1.0); MAGNESIUM 2.2 mg/dL (1.7-2.8)
== END 2018-02-20 23:59 | disposition home or self-care (01) ==
LOC: LAB.N 08:00
PROVIDERS: ATTEND Family Medicine
DX: E83.52 Hypercalcemia (principal); R11.2 Nausea with vomiting, unspecified
CPT/HCPCS: 36415; 80053; 83735

== ENCOUNTER 2018-02-27 08:00 | Outpatient (CLI) | payer MEDICAID ==
[2018-02-27 19:43] LABS: CALCIUM 11.1 mg/dL (8.5-10.3); CREATININE 0.8 mg/dL (0.4-1.0)
== END 2018-02-27 23:59 ==
LOC: LAB.N 08:00
PROVIDERS: ATTEND Family Medicine
DX: E83.52 Hypercalcemia (principal)
CPT/HCPCS: 36415; 80048

== ENCOUNTER 2018-03-09 13:50 | Outpatient (CLI) | payer MEDICAID ==
[2018-03-09 19:32] LABS: ALBUMIN 3.1 g/dL (3.2-5.5); ALBUMIN/GLOBULIN RATIO 0.8 (1.0-2.2); BILIRUBIN,TOTAL 0.4 mg/dL (0.2-1.0); CALCIUM 11.5 mg/dL (8.5-10.3); CREATININE 0.9 mg/dL (0.4-1.0)
== END 2018-03-09 23:59 | disposition home or self-care (01) ==
LOC: LAB.N 13:50
PROVIDERS: ATTEND Family Medicine
DX: E83.52 Hypercalcemia (principal)
CPT/HCPCS: 36415; 80053

== ENCOUNTER 2018-04-03 20:11 | Emergency (ER) | payer MEDICAID ==
[2018-04-03 20:41] VITALS: BP 124/64
--- NOTE | 2018-04-03 20:41 | ED Physician Documentation ---
PD HPI ABD PAIN - Stated complaint Stated Complaint: ABD PX - Chief complaint Chief Complaint: Abd Pain - History obtained from History obtained from: Patient - History of Present Illness Timing - onset: Today Timing - duration: Days (1) Timing - details: Gradual onset, Waxing and waning Quality: Cramping Location: Suprapubic Radiation: Left flank Associated symptoms: Dysuria, Hematuria. No: Fever, Nausea, Diarrhea, Constipation, Vaginal bleeding, Vaginal dc Similar symptoms before: Has not had sx before Recently seen: Clinic (She was seen today with a preop examination and urine and blood testing in preparation for a nephrectomy at the . She states she had some difficulty urinating this morning and noticed some urgency and discomfort. She was at a able to give a voided urine however and so they did not assess that further. She states through the day she is continued with some feeling of urgency and dysuria being a pressure type feeling when she does urinate. She has noticed some blood in her urine. She is typically incontinent and uses a depends and has noticed some blood in the depends. She and her strategic account director considered whether it was urinary or vaginal. She has had pain in the suprapubic area through the day which is cramping in nature.) Review of Systems Constitutional: denies: Fever Nose: denies: Rhinorrhea / runny nose, Congestion Throat: denies: Sore throat Respiratory: denies: Cough GI: denies: Nausea, Vomiting, Diarrhea : reports: Dysuria, Frequency, Hematuria. denies: Discharge Skin: denies: Rash, Lesions PD PAST MEDICAL HISTORY - Past Medical History Cardiovascular: Other (Morbid obesity) Respiratory: Asthma, COPD Neuro: CVA Endocrine/Autoimmune: None GI: GERD : None HEENT: None Psych: Depression Musculoskeletal: Osteoarthritis Derm: Psoriasis - Past Surgical History Past Surgical History: Yes General: Cholecystectomy, Hiatal hernia repair Ortho: Carpal Tunnel surgery /MEDICAL TERMINOLOGIST: Hysterectomy HEENT: Tonsil/Adenoidectomy - Present Medications Home Medications: Ambulatory Orders Medication Instructions Recorded Confirmed Potassium Chloride [Klor-Con M20] 20 meq PO DAILY 09/02/13 04/03/18 Prazosin HCl 4 mg PO QPM 09/02/13 04/03/18 Ranitidine HCl [Zantac] 150 mg PO DAILY 03/28/14 04/03/18 Aspirin [Aspir-Low] 81 mg ORAL DAILY 03/14/15 04/03/18 Citalopram [CeleXA] 40 mg ORAL DAILY 03/14/15 04/03/18 Albuterol Sulfate [Proair Hfa 2 puffs INH Q4H PRN 02/11/18 04/03/18 Inhaler] Fluticasone 110 Mcg [Flovent] 2 puffs INH BID 02/11/18 04/03/18 Ipratropium/Albuterol Sulfate 3 ml INH QID PRN 02/11/18 04/03/18 [Iprat-Albut 0.5-3(2.5) mg/3 ml] Naproxen 500 mg PO BID PRN 02/11/18 04/03/18 hydrOXYzine HCl [Hydroxyzine HCl] 25 mg PO BID PRN 02/11/18 04/03/18 Bisacodyl [Dulcolax] 10 mg PO BID PRN #14 tablet 02/14/18 04/03/18 Phenazopyridine HCl [Pyridium] 200 mg PO TID PRN #6 tablet 04/03/18 Sulfamethox/Trimeth 800/160 1 each PO BID #14 tablet 04/03/18 [Bactrim Ds 800/160] - Allergies Allergies/Adverse Reactions: Allergies Allergy/AdvReac Type Severity Reaction Status Date / Time iodine Allergy Severe Nausea Verified 04/03/18 20:41 Latex, Natural Rubber Allergy Unknown Verified 04/03/18 20:41 bee stings Allergy Severe Anaphylaxis Uncoded 08/12/16 19:18 paper tape Allergy Intermediate Hives Uncoded 08/12/16 19:18 - Social History Does the pt smoke?: No Smoking Status: Current some day smoker Does the pt drink ETOH?: Yes Does the pt have substance abuse?: No - Immunizations Immunizations are current?: Yes Immunizations: TDAP >10years/unknown - POLST Patient has POLST: Yes POLST Status: Full Code PD ED PE NORMAL - Vitals Vital signs reviewed: Yes - General General: Alert and oriented X 3, Well developed/nourished - Neck Neck: Supple, no meningeal sign, No adenopathy - Cardiac Cardiac: RRR, No murmur - Respiratory Respiratory: Clear bilaterally - Abdomen Abdomen: Normal bowel sounds, Soft, Non distended, No organomegaly, Other (mild tenderness without guarding in suprapubic area. ) - Female Female : Deferred, Other (nurse did belle as symptoms of urinary retention and related to me there was no rash nor signs of vaginal bleeding. Did get blood with urine on cath. belle irrigated okay. ) Results - Vitals Vitals: Vital Signs - 24 hr 04/03/18 20:39 Temperature 37.2 C Heart Rate 85 Respiratory 18 Rate Blood Pressure 124/64 O2 Saturation 96 Oxygen O2 Source Room air - Labs Labs: Laboratory Tests 04/03/18 21:15 Urine Color RED/BLOODY Urine Clarity BLOODY Urine pH 6.5 Ur Specific [place] <=1.005 Urine Protein 100 H Urine Glucose (UA) NEGATIVE Urine Ketones NEGATIVE Urine Occult Blood LARGE H Urine Nitrite NEGATIVE Urine Bilirubin NEGATIVE Urine Urobilinogen 0.2 (NORMAL) Ur Leukocyte Esterase TRACE H Urine RBC TNTC H Urine WBC 0-3 Ur Squamous Epith Cells NONE SEEN Amorphous Sediment Moderate Urine Bacteria None Seen Ur Microscopic Review INDICATED Urine Culture Comments INDICATED PD MEDICAL DECISION MAKING - ED course Complexity details: reviewed results, considered differential (having hematuria and feeling of unable to urinate. However bladder scanner only showing 150 ml. She could not urinate though, so belle placed and had her feeling a lot better. Some cramping at times. Presume UTI or cystitis, given the urgency feeling and hematuria, as opposed to blood from kidney. Will treat as UTI, and have belle in for 2-3 days. ), d/w patient Departure - Departure Disposition: 01 Home, Self Care Clinical Impression: Dysuria Acute cystitis Qualifiers: Hematuria presence: with hematuria Qualified Code(s): N30.01 - Acute cystitis with hematuria Condition: Stable Record reviewed to determine appropriate education?: Yes Instructions: ED UTI Cystitis Female Follow-Up: Idalmis Ellis DNP [Credentialed Staff Provider] - Prescriptions: Phenazopyridine HCl [Pyridium] 200 mg PO TID PRN #6 tablet PRN Reason: dysuria Sulfamethox/Trimeth 800/160 [Bactrim Ds 800/160] 1 each PO BID #14 tablet Comments: Leave the Belle catheter in for 2-3 days while we treat for inflammation and likely infection of the bladder. That would be the most common cause of the feeling of having to urinate and not being able to along with some blood in the urine. Is possible he could be getting blood from the kidney but that would give the feeling of cramping and urgency at the bladder. We would likely see if we can have the catheter out after a few days if your urine is clear and you are feeling okay. Follow-up with your primary care or return to the ER for that. Drink lots of fluids. Return if problems. Use naproxen twice daily for the next 3-4 days. Phenazopyridine 3 times a day for the next 2-3 days. This will turn her urine a little orange colored so not to worry. Bactrim antibiotic twice daily for 5 days. Discharge Date/Time: 04/03/18 22:22
[2018-04-03] MEDS ORDERED: ACETAMINOPHEN 325 MG TABLET PO STA (21:31)
[2018-04-03] MEDS ORDERED: SULFAMETH/TRIMETH DS 800/160 MG TABLET PO STA (21:32)
[2018-04-03] MEDS ORDERED: PHENAZOPYRIDINE 100 MG TABLET PO STA (21:32)
[2018-04-03 21:37] LABS: BILIRUBIN,URINE NEGATIVE (NEGATIVE); GLUCOSE, URINE (UA) NEGATIVE (NEGATIVE); KETONES,URINE (UA) NEGATIVE (NEGATIVE); LEUKOCYTE ESTERASE, URINE TRACE (NEGATIVE); NITRITE,URINE NEGATIVE (NEGATIVE); OCCULT BLOOD,URINE LARGE (NEGATIVE); PH,URINE 6.5 PH (5.0-7.5); PROTEIN,URINE 100 mg/dL (NEGATIVE); UROBILINOGEN,URINE 0.2 (NORMAL) E.U./dL (NORMAL)
[2018-04-03 21:38] LABS: CLARITY,URINE BLOODY (CLEAR)
[2018-04-03 21:41] LABS: AMORPHOUS SEDIMENT,UR Moderate /LPF; BACTERIA,URINE None Seen /HPF (None Seen); RBC,URINE TNTC /HPF (0-5); SQUAMOUS EPITHELIAL CELL,UR NONE SEEN (<= Few)
[2018-04-03] MEDS ORDERED: KETOROLAC 30 MG/ML VIAL IVP STA (21:43)
== END 2018-04-03 22:22 | disposition home or self-care (01) ==
LOC: ED 20:11
DX: N30.01 Acute cystitis with hematuria (principal); E66.01 Morbid (severe) obesity due to excess calories; F17.200 Nicotine dependence, unspecified, uncomplicated; Z79.82 Long term (current) use of aspirin; Z59.0 Homelessness
CPT/HCPCS: 51702; 51798; 81001; 87086; 96374; 99283; A9270; 81003

== ENCOUNTER 2018-04-05 11:24 | Emergency (ER) | payer MEDICAID ==
--- NOTE | 2018-04-05 12:30 | ED Physician Documentation ---
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 She was seen here couple of days ago with symptoms of urinary retention and some hematuria. A Bazan was placed and she felt much better but it stopped working last night and stopped draining and she has suprapubic pressure. 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 HEENT: Tonsil/Adenoidectomy - Present Medications Home Medications: Ambulatory Orders Medication Instructions Recorded Confirmed Potassium Chloride [Klor-Con M20] 20 meq PO DAILY 09/02/13 04/03/18 Prazosin HCl 4 mg PO QPM 09/02/13 04/03/18 Ranitidine HCl [Zantac] 150 mg PO DAILY 03/28/14 04/03/18 Aspirin [Aspir-Low] 81 mg ORAL DAILY 03/14/15 04/03/18 Citalopram [CeleXA] 40 mg ORAL DAILY 03/14/15 04/03/18 Albuterol Sulfate [Proair Hfa 2 puffs INH Q4H PRN 02/11/18 04/03/18 Inhaler] Fluticasone 110 Mcg [Flovent] 2 puffs INH BID 02/11/18 04/03/18 Ipratropium/Albuterol Sulfate 3 ml INH QID PRN 02/11/18 04/03/18 [Iprat-Albut 0.5-3(2.5) mg/3 ml] Naproxen 500 mg PO BID PRN 02/11/18 04/03/18 hydrOXYzine HCl [Hydroxyzine HCl] 25 mg PO BID PRN 02/11/18 04/03/18 Bisacodyl [Dulcolax] 10 mg PO BID PRN #14 tablet 02/14/18 04/03/18 Phenazopyridine HCl [Pyridium] 200 mg PO TID PRN #6 tablet 04/03/18 Sulfamethox/Trimeth 800/160 1 each PO BID #14 tablet 04/03/18 [Bactrim Ds 800/160] - Allergies Allergies/Adverse Reactions: Allergies Allergy/AdvReac Type Severity Reaction Status Date / Time iodine Allergy Severe Nausea Verified 04/05/18 11:40 Latex, Natural Rubber Allergy Unknown Verified 04/05/18 11:40 bee stings Allergy Severe Anaphylaxis Uncoded 04/05/18 11:40 paper tape Allergy Intermediate Hives Uncoded 04/05/18 11:40 - Social History Does the pt smoke?: No Smoking Status: Current some day smoker Does the pt drink ETOH?: Yes Does the pt have substance abuse?: No - Immunizations Immunizations are current?: Yes Immunizations: TDAP >10years/unknown - POLST Patient has POLST: Yes POLST Status: Full Code PD ED PE NORMAL - Vitals Vital signs reviewed: Yes - General General: Alert and oriented X 3, No acute distress - Abdomen Abdomen: Normal bowel sounds, Soft, Non tender - Neuro Neuro: Alert and oriented X 3, Normal speech Results - Vitals Vitals: Vital Signs - 24 hr 04/05/18 11:37 Temperature 36.8 C Heart Rate 81 Respiratory 18 Rate Blood Pressure 133/57 H O2 Saturation 95 Oxygen O2 Source Room air PD MEDICAL DECISION MAKING - ED course ED course: There is a Bazan catheter in place, no urine in the bag. I hand irrigated it a nd got 1 large clot out. After that the urine was yellow but without gross hematuria and the Bazan was draining well. Departure - Departure Disposition: 01 Home, Self Care Clinical Impression: Obstructed Bazan catheter Qualifiers: Encounter type: initial encounter Qualified Code(s): T83.091A - Other mechanical complication of indwelling urethral catheter, initial encounter Condition: Good Record reviewed to determine appropriate education?: Yes Instructions: ED Catheter Care Bazan Comments: Return if worse. Call [facility] as discussed for preop clearance etc.
[2018-04-05 12:35] VITALS: BP 130/60
== END 2018-04-05 12:37 | disposition home or self-care (01) ==
LOC: ED 11:24
DX: T83.091A Other mechanical complication of indwelling urethral catheter, initial encounter (principal); Y84.6 Urinary catheterization as the cause of abnormal reaction of the patient, or of later complication, without mention of misadventure at the time of the procedure; D49.519 Neoplasm of unspecified behavior of unspecified kidney; F17.200 Nicotine dependence, unspecified, uncomplicated; Z79.82 Long term (current) use of aspirin
CPT/HCPCS: 99282; 99283

== ENCOUNTER 2018-04-06 12:34 | Outpatient (CLI) | payer MEDICAID | END 2018-04-06 12:35 | disposition home or self-care (01) | LOC: DI 12:34 | PROVIDERS: ATTEND Internal Medicine | DX: R01.1 Cardiac murmur, unspecified (principal); I35.0 Nonrheumatic aortic (valve) stenosis; I27.20 Pulmonary hypertension, unspecified | CPT/HCPCS: 93306 ==

== ENCOUNTER 2018-04-08 18:26 | Emergency (ER) | payer MEDICAID ==
--- NOTE | 2018-04-08 21:11 | ED Physician Documentation ---
PD HPI FEMALE - Stated complaint Stated Complaint: CATH CHECK - Chief complaint Chief Complaint: Abd Pain - History obtained from History obtained from: Patient - History of Present Illness Timing - duration: Days (had had some hematuria with then urinary retention and has catheter placed. This was draining well, with some hematuria grossly, and today is having feeling of not being able to urinate and having urine leak out around the belle.) Timing - details: Gradual onset, Still present Associated symptoms: Hematuria. No: Fever, Vaginal discharge, Dysuria Contributing factors: Not sexually active Similar symptoms before: Has not had sx before Recently seen: Emergency Dept (for hematuria, dysuria and inabilitY TO URINATE AND RX WITH BELLE AND SOME ABX.) Review of Systems Constitutional: denies: Fever, Chills, Myalgias Nose: denies: Rhinorrhea / runny nose, Congestion Throat: denies: Sore throat Cardiac: denies: Chest pain / pressure Respiratory: denies: Cough GI: reports: Nausea : reports: Unable to Void, Hematuria PD PAST MEDICAL HISTORY - Past Medical History Cardiovascular: Other Respiratory: Asthma, COPD Neuro: CVA Endocrine/Autoimmune: None GI: GERD : None HEENT: None Psych: Depression Musculoskeletal: Osteoarthritis Derm: Psoriasis - Past Surgical History Past Surgical History: Yes General: Cholecystectomy, Hiatal hernia repair 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 HEENT: Tonsil/Adenoidectomy - Present Medications Home Medications: Ambulatory Orders Medication Instructions Recorded Confirmed Potassium Chloride [Klor-Con M20] 20 meq PO DAILY 09/02/13 04/08/18 Prazosin HCl 4 mg PO QPM 09/02/13 04/08/18 Ranitidine HCl [Zantac] 150 mg PO DAILY 03/28/14 04/08/18 Aspirin [Aspir-Low] 81 mg ORAL DAILY 03/14/15 04/08/18 Citalopram [CeleXA] 40 mg ORAL DAILY 03/14/15 04/08/18 Albuterol Sulfate [Proair Hfa 2 puffs INH Q4H PRN 02/11/18 04/08/18 Inhaler] Fluticasone 110 Mcg [Flovent] 2 puffs INH BID 02/11/18 04/08/18 Ipratropium/Albuterol Sulfate 3 ml INH QID PRN 02/11/18 04/08/18 [Iprat-Albut 0.5-3(2.5) mg/3 ml] Naproxen 500 mg PO BID PRN 02/11/18 04/08/18 hydrOXYzine HCl [Hydroxyzine HCl] 25 mg PO BID PRN 02/11/18 04/08/18 Bisacodyl [Dulcolax] 10 mg PO BID PRN #14 tablet 02/14/18 04/08/18 Phenazopyridine HCl [Pyridium] 200 mg PO TID PRN #6 tablet 04/03/18 04/08/18 Sulfamethox/Trimeth 800/160 1 each PO BID #14 tablet 04/03/18 04/08/18 [Bactrim Ds 800/160] - Allergies Allergies/Adverse Reactions: Allergies Allergy/AdvReac Type Severity Reaction Status Date / Time iodine Allergy Severe Nausea Verified 04/08/18 18:35 Latex, Natural Rubber Allergy Unknown Verified 04/08/18 18:35 bee stings Allergy Severe Anaphylaxis Uncoded 04/08/18 18:35 paper tape Allergy Intermediate Hives Uncoded 04/08/18 18:35 - Social History Does the pt smoke?: No Smoking Status: Never smoker Does the pt drink ETOH?: Yes Does the pt have substance abuse?: No - Immunizations Immunizations are current?: Yes Immunizations: TDAP >10years/unknown - POLST Patient has POLST: Yes POLST Status: Full Code PD ED PE NORMAL - Vitals Vital signs reviewed: Yes - General General: Alert and oriented X 3, No acute distress, Well developed/nourished - Female Female : Manager Applied present, Other (belle in place and draining grossly hematuric urine. ) - Derm Derm: Normal color, Warm and dry Results - Vitals Vitals: Oxygen O2 Source Room air PD MEDICAL DECISION MAKING - ED course Complexity details: considered differential (nurse irrigated the belle and it was draining well and she felt it was emptying. ), d/w patient Departure - Departure Disposition: Home, Self Care Clinical Impression: Hematuria Qualifiers: Hematuria type: gross Qualified Code(s): R31.0 - Gross hematuria Obstructed Belle catheter Qualifiers: Encounter type: subsequent encounter Qualified Code(s): T83.091D - Other mechanical complication of indwelling urethral catheter, subsequent encounter Condition: Stable Record reviewed to determine appropriate education?: Yes Follow-Up: Idalmis Ellis DNP [Primary Care Provider] - Comments: Follow-up with [facility] on Friday for your kidney surgery as planned. Keep the Belle catheter in place. Return if it seems to clog up again. Stay well-hydrated. Discharge Date/Time: 04/08/18 23:31
[2018-04-08] MEDS ORDERED: OXYBUTYNIN 5MG TABLET PO STA (21:41)
[2018-04-08 23:31] VITALS: BP 139/70
== END 2018-04-08 23:31 | disposition home or self-care (01) ==
LOC: ED 18:26
DX: T83.091A Other mechanical complication of indwelling urethral catheter, initial encounter (principal); R31.0 Gross hematuria; Z86.73 Personal history of transient ischemic attack (TIA), and cerebral infarction without residual deficits
CPT/HCPCS: 99283; A9270

== ENCOUNTER 2018-04-17 13:39 | Emergency (ER) | payer MEDICAID ==
--- NOTE | 2018-04-17 14:05 | ED Physician Documentation ---
PD HPI CHEST PAIN - Stated complaint Stated Complaint: CP/VOMITING - Chief complaint Chief Complaint: Cardiac - History obtained from History obtained from: Patient, Family - History of Present Illness Timing - onset: Today Timing - onset during: Rest Timing - duration: Hours Timing - details: Abrupt onset, Still present Quality: Pressure, Sharp Location: Substernal, Left chest Radiation: Back Improved by: Rest Worsened by: Inspiration, Movement Associated symptoms: Nausea, Vomiting. No: Shortness of air, Diaphoresis Similar symptoms before: Has not had sx before Recently seen: Surgery - Additional information Additional information: 62-year-old female who had her left kidney removed at the [facility] for a tumor 5 days ago has developed acute left-sided chest pain after vomiting something that appeared to be coffee grounds. She has not had this pain previously she has worsening of this pain with inspiration. She denies any pain in her calves or swelling of her legs. Patient relates that she did take her iron on an empty stomach and she vomited shortly after that. Review of Systems Constitutional: denies: Fever Eyes: denies: Decreased vision Ears: denies: Ear pain Nose: denies: Rhinorrhea / runny nose, Congestion Throat: denies: Sore throat Cardiac: reports: Chest pain / pressure. 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 HEENT: Tonsil/Adenoidectomy - Present Medications Home Medications: Ambulatory Orders Medication Instructions Recorded Confirmed Potassium Chloride [Klor-Con M20] 20 meq PO DAILY 09/02/13 04/08/18 Prazosin HCl 4 mg PO QPM 09/02/13 04/08/18 Ranitidine HCl [Zantac] 150 mg PO DAILY 03/28/14 04/08/18 Aspirin [Aspir-Low] 81 mg ORAL DAILY 03/14/15 04/08/18 Citalopram [CeleXA] 40 mg ORAL DAILY 03/14/15 04/08/18 Albuterol Sulfate [Proair Hfa 2 puffs INH Q4H PRN 02/11/18 04/08/18 Inhaler] Fluticasone 110 Mcg [Flovent] 2 puffs INH BID 02/11/18 04/08/18 Ipratropium/Albuterol Sulfate 3 ml INH QID PRN 02/11/18 04/08/18 [Iprat-Albut 0.5-3(2.5) mg/3 ml] Naproxen 500 mg PO BID PRN 02/11/18 04/08/18 hydrOXYzine HCl [Hydroxyzine HCl] 25 mg PO BID PRN 02/11/18 04/08/18 Bisacodyl [Dulcolax] 10 mg PO BID PRN #14 tablet 02/14/18 04/08/18 Phenazopyridine HCl [Pyridium] 200 mg PO TID PRN #6 tablet 04/03/18 04/08/18 Sulfamethox/Trimeth 800/160 1 each PO BID #14 tablet 04/03/18 04/08/18 [Bactrim Ds 800/160] Cyclobenzaprine [Flexeril] 10 mg PO TID PRN #20 tablet 04/17/18 Hydrocodone/Acetaminophen 1 - 2 each PO Q6H PRN #14 tablet 04/17/18 [Hydrocodon-Acetaminophen 5-325] Ondansetron Odt [Zofran] 4 mg TL Q6H PRN #10 tablet 04/17/18 - Allergies Allergies/Adverse Reactions: Allergies Allergy/AdvReac Type Severity Reaction Status Date / Time iodine Allergy Severe Nausea Verified 04/17/18 13:48 Latex, Natural Rubber Allergy Unknown Verified 04/17/18 13:48 bee stings Allergy Severe Anaphylaxis Uncoded 04/08/18 18:35 paper tape Allergy Intermediate Hives Uncoded 04/08/18 18:35 - Social History Does the pt smoke?: No Smoking Status: Never smoker Does the pt drink ETOH?: Yes Does the pt have substance abuse?: No - Immunizations Immunizations are current?: Yes Immunizations: TDAP >10years/unknown - POLST Patient has POLST: Yes POLST Status: Full Code PD ED PE NORMAL - Vitals Vital signs reviewed: Yes - General General: Alert and oriented X 3, Well developed/nourished - HEENT HEENT: Atraumatic, PERRL, EOMI - Neck Neck: Supple, no meningeal sign, No bony TTP - Cardiac Cardiac: RRR, No murmur - Respiratory Respiratory: No respiratory distress, Other (diminished breath sounds bilaterally ) - Abdomen Abdomen: Soft, Other (There are multiple port inscisions and these are without signs of inflamation. The abdomen is generally tender but without garding or rebound tendereness. 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, No motor deficit, No sensory deficit, Normal speech Eye Opening: Spontaneous Motor: Obeys Commands Verbal: Oriented GCS Score: 15 - Psych Psych: Normal mood, Normal affect Results - Vitals Vitals: Vital Signs - 24 hr 04/17/18 04/17/18 04/17/18 13:46 14:20 14:50 Temperature 36.5 C Heart Rate 83 78 72 Respiratory 22 18 14 Rate Blood Pressure 157/84 H 155/67 H 137/74 H O2 Saturation 96 99 93 04/17/18 04/17/18 04/17/18 15:57 16:02 18:12 Temperature 36.4 C L Heart Rate 87 72 76 Respiratory 18 18 18 Rate Blood Pressure 127/67 138/71 H 141/79 H O2 Saturation 96 100 98 Oxygen O2 Source Room air - EKG (time done) 1347 Rate: Rate (enter#) (82) Rhythm: NSR Ischemia: Normal ST segments Compare to prior EKG: Unchanged from prior EKG (02-11-18) Computer interpretation: Agree with computer - Labs Labs: Laboratory Tests 04/17/18 04/17/18 04/17/18 14:16 14:16 14:16 WBC 7.1 RBC 3.08 L Hgb 8.8 L Hct 26.7 L MCV 86.9 MCH 28.5 MCHC 32.8 RDW 15.7 H Plt Count 481 H MPV 6.7 L Neut # (Auto) 5.2 Lymph # (Auto) 1.1 L [place] # (Auto) 0.6 Eos # (Auto) 0.1 Baso # (Auto) 0.1 Absolute Nucleated RBC 0.01 Nucleated RBC % 0.1 D-Dimer Sodium 138 Potassium 4.2 Chloride 104 Carbon Dioxide 28 Anion Gap 6.0 BUN 14 Creatinine 1.3 H Estimated GFR (MDRD) 42 L Glucose 120 H Calcium 9.1 Total Bilirubin < 0.2 L AST 23 ALT 23 Alkaline Phosphatase 70 Troponin I < 0.04 Total Protein 6.3 L Albumin 2.8 L Globulin 3.5 Albumin/Globulin Ratio 0.8 L Lipase 27 Urine Color Urine Clarity Urine pH Ur Specific [place] Urine Protein Urine Glucose (UA) Urine Ketones Urine Occult Blood Urine Nitrite Urine Bilirubin Urine Urobilinogen Ur Leukocyte Esterase Ur Microscopic Review Urine Culture Comments 04/17/18 04/17/18 14:16 19:08 WBC RBC Hgb Hct MCV MCH MCHC RDW Plt Count MPV Neut # (Auto) Lymph # (Auto) [place] # (Auto) Eos # (Auto) Baso # (Auto) Absolute Nucleated RBC Nucleated RBC % D-Dimer > 1050.0 H Sodium Potassium Chloride Carbon Dioxide Anion Gap BUN Creatinine Estimated GFR (MDRD) Glucose Calcium Total Bilirubin AST ALT Alkaline Phosphatase Troponin I Total Protein Albumin Globulin Albumin/Globulin Ratio Lipase Urine Color YELLOW Urine Clarity CLEAR Urine pH 6.0 Ur Specific [place] 1.020 Urine Protein NEGATIVE Urine Glucose (UA) NEGATIVE Urine Ketones NEGATIVE Urine Occult Blood NEGATIVE Urine Nitrite NEGATIVE Urine Bilirubin NEGATIVE Urine Urobilinogen 0.2 (NORMAL) Ur Leukocyte Esterase NEGATIVE Ur Microscopic Review NOT INDICATED Urine Culture Comments NOT INDICATED - Rads (name of study) 1 veiw chest Radiology: Prelim report reviewed (Impression: Low lung volumes, otherwise, no acute findings.), EMP read indepedently, See rad report v.q scan Radiology: Discussed with rads PD MEDICAL DECISION MAKING - ED course Complexity details: reviewed old records, reviewed results, re-evaluated patient, considered differential, d/w patient, d/w family ED course: 62-year-old female with a recent surgical removal of her left kidney has acute left-sided chest pain shortness of breath pleuritic pain and nausea and vomiting. She is allergic to contrast her d-dimer is elevated over thousand and a VQ scan is obtained. This study is low probability. The patient has post operative pain and is given dilaudid and zofran with excellent control. She is able to stand at the bedside to provide urine without much problem. I suspect her pain exacerbation is related to wretching after taking her iron supplement with resulting left sided pain related to the recent surgery and wretching. The findings on diagostics were consistent with her prior findings and there was no elevation of the white count and her hematocrit was similar to her last here. Departure - Departure Disposition: 01 Home, Self Care Clinical Impression: Anemia Qualifiers: Anemia type: unspecified type Qualified Code(s): D64.9 - Anemia, unspecified Nausea and vomiting Qualifiers: Vomiting type: unspecified Vomiting Intractability: non-intractable Qualified Code(s): R11.2 - Nausea with vomiting, unspecified Iron adverse reaction Qualifiers: Encounter type: initial encounter Qualified Code(s): T45.4X5A - Adverse effect of iron and its compounds, initial encounter Instructions: ED Nausea Vomiting Follow-Up: Idalmis Ellis DNP [Primary Care Provider] - Prescriptions: Cyclobenzaprine [Flexeril] 10 mg PO TID PRN #20 tablet PRN Reason: Spasms Hydrocodone/Acetaminophen [Hydrocodon-Acetaminophen 5-325] 1 - 2 each PO Q6H PRN #14 tablet PRN Reason: pain Ondansetron Odt [Zofran] 4 mg TL Q6H PRN #10 tablet PRN Reason: Nausea / Vomiting Comments: Follow-up with your primary care doctor about iron infusions. It does not appear that you will tolerate oral iron.
[2018-04-17] MEDS ORDERED: HYDROmorphone 1 MG/ML CARPUJECT IVP STA ×2 (14:23→18:15)
[2018-04-17] MEDS ORDERED: ONDANSETRON 4 MG/2 ML VIAL IVP STA ×2 (14:23→18:15)
[2018-04-17 14:29] LABS: BASOPHILS # (AUTO) 0.1 10^3/uL (0.0-0.1); BASOPHILS % (AUTO) 1.2 %; EOSINOPHILS # (AUTO) 0.1 10^3/uL (0.0-0.7); EOSINOPHILS % (AUTO) 1.8 %; HGB - HEMOGLOBIN 8.8 g/dL (12.0-16.0); LYMPHOCYTES # (AUTO) 1.1 10^3/uL (1.5-3.5); LYMPHOCYTES % (AUTO) 14.8 %; MEAN CORPUSCULAR HEMOGLOBIN 28.5 pg (27.0-31.0); MEAN CORPUSCULAR HGB CONC 32.8 g/dL (32.0-36.0); MEAN CORPUSCULAR VOLUME 86.9 fL (81.0-99.0); MEAN PLATELET VOLUME 6.7 fL (7.9-10.8); MONOCYTES # (AUTO) 0.6 10^3/uL (0.0-1.0); MONOCYTES % (AUTO) 8.5 %; NEUTROPHILS # (AUTO) 5.2 10^3/uL (1.5-6.6); NEUTROPHILS % (AUTO) 73.7 %; PLT - PLATELET COUNT 481 10^3/uL (130-450); RED BLOOD COUNT 3.08 10^6/uL (4.20-5.40); RED CELL DISTRIBUTION WIDTH 15.7 % (12.0-15.0); WHITE BLOOD COUNT 7.1 x10^3/uL (4.8-10.8)
[2018-04-17 14:37] LABS: ALBUMIN 2.8 g/dL (3.2-5.5); ALBUMIN/GLOBULIN RATIO 0.8 (1.0-2.2); ALKALINE PHOSPHATASE 70 IU/L (42-121); ALT ALANINE AMINOTRANSFERASE 23 IU/L (10-60); AST ASPARTATE AMINOTRANSFERASE 23 IU/L (10-42); BILIRUBIN,TOTAL < 0.2 mg/dL (0.2-1.0); BUN - BLOOD UREA NITROGEN 14 mg/dL (6-20); CALCIUM 9.1 mg/dL (8.5-10.3); CARBON DIOXIDE - CO2 28 mmol/L (21-32); CHLORIDE 104 mmol/L (101-111); CREATININE 1.3 mg/dL (0.4-1.0); GFR - MDRD 42 (>89); GLUCOSE 120 mg/dL (70-100); LIPASE 27 U/L (22-51); SODIUM 138 mmol/L (135-145); TOTAL PROTEIN 6.3 g/dL (6.7-8.2)
--- NOTE | 2018-04-17 14:52 | XRAY Report ---
Reason: chest pain Procedure Date: 04/17/2018 Accession Number: [id number] / [id number] Procedure: XR - Chest 1 View X-Ray CPT Code: 67061 FULL RESULT: EXAM: CHEST RADIOGRAPHY EXAM DATE: 04/17/2018 02:29 PM. CLINICAL HISTORY: Chest Pain. COMPARISON: SHOULDER 3 VIEW RT 05/30/2017 11:26 AM. TECHNIQUE: 1 view. FINDINGS: Lungs/Pleura: No focal opacities evident. No pleural effusion. No pneumothorax. Low lung volumes. Mediastinum: Within exam limitations, the cardiomediastinal contour is normal. Other: None. IMPRESSION: Low lung volumes, otherwise, no acute findings. RAD[facility]
--- NOTE | 2018-04-17 18:23 | Nuclear Medicine Report ---
Reason: chest pain soa, s/p surgery, elevated d-dimer Procedure Date: 04/17/2018 Accession Number: [id number] / [id number] Procedure: NM - Lung Vent/Perf V/Q CPT Code: FULL RESULT: EXAM: VENTILATION/PERFUSION SCAN (V/Q SCAN) EXAM DATE: 04/17/2018 05:12 PM. CLINICAL HISTORY: Chest pain soa, s/p surgery, elevated d-dimer. COMPARISON: CHEST 1 VIEW 04/17/2018 2:15 PM. TECHNIQUE: Patient was administered 36.7 mCi of technetium 99m DTPA aerosol by inhalation and 8 standard ventilation images of the lungs were obtained. Next, the patient was injected with 5.4 mCi of technetium 99m MAA intravenously and 8 standard perfusion images of the lungs were obtained. Comment: No LPO ventilation was acquired. FINDINGS: Ventilation Scan: Symmetric and homogenous pulmonary radioaerosol deposition is present. No significant focal defects. Lung volume is normal. No matched ventilation/perfusion defects to indicate air trapping. Central airway deposition of radiotracer activity noted. Perfusion Scan: Symmetric and homogenous perfusion activity is present. No ventilation/perfusion mismatches are identified. IMPRESSION: 1. No ventilation/perfusion mismatches to indicate pulmonary emboli. Low probability for acute pulmonary embolism. 2. Central airway deposition of radiotracer activity may indicate COPD. Correlate clinically. [facility]IA The call report notification system was initiated by Dr. Dominga Mcclure at 06:21 PM hrs on 04/17/2018. ADDENDUM: 04/17/18 18:26 The above findings were discussed with Dr Ester Dr by Dr. Dominga Mcclure at 06:26 PM hrs on 04/17/2018.
[2018-04-17] MEDS ORDERED: SODIUM CHLORIDE 0.9% 500 ML IV ONE (18:28)
[2018-04-17 19:19] LABS: BILIRUBIN,URINE NEGATIVE (NEGATIVE); GLUCOSE, URINE (UA) NEGATIVE (NEGATIVE); KETONES,URINE (UA) NEGATIVE (NEGATIVE); LEUKOCYTE ESTERASE, URINE NEGATIVE (NEGATIVE); NITRITE,URINE NEGATIVE (NEGATIVE); OCCULT BLOOD,URINE NEGATIVE (NEGATIVE); PROTEIN,URINE NEGATIVE (NEGATIVE); UROBILINOGEN,URINE 0.2 (NORMAL) E.U./dL (NORMAL)
[2018-04-17 19:20] LABS: CLARITY,URINE CLEAR (CLEAR)
[2018-04-17 19:41] VITALS: BP 135/69
== END 2018-04-17 19:41 | disposition home or self-care (01) ==
LOC: ED 13:39
DX: R11.2 Nausea with vomiting, unspecified (principal); D64.9 Anemia, unspecified; T45.4X5A Adverse effect of iron and its compounds, initial encounter; Z86.73 Personal history of transient ischemic attack (TIA), and cerebral infarction without residual deficits; Z90.5 Acquired absence of kidney
CPT/HCPCS: 36415; 71045; 78582; 80053; 81003; 83690; 84484; 85025; 85379; 93005; 96361; 96374; 96376; 99284; J1170; 81001; 87086

== ENCOUNTER 2018-05-01 08:00 | Outpatient (CLI) | payer MEDICAID ==
[2018-05-01 13:38] LABS: BASOPHILS % (AUTO) 0.9 %; EOSINOPHILS # (AUTO) 0.2 10^3/uL (0.0-0.7); EOSINOPHILS % (AUTO) 3.3 %; HGB - HEMOGLOBIN 10.3 g/dL (12.0-16.0); LYMPHOCYTES # (AUTO) 1.5 10^3/uL (1.5-3.5); LYMPHOCYTES % (AUTO) 30.3 %; MEAN CORPUSCULAR VOLUME 90.9 fL (81.0-99.0); MEAN PLATELET VOLUME 7.9 fL (7.9-10.8); MONOCYTES # (AUTO) 0.7 10^3/uL (0.0-1.0); MONOCYTES % (AUTO) 13.9 %; NEUTROPHILS # (AUTO) 2.6 10^3/uL (1.5-6.6); NEUTROPHILS % (AUTO) 51.6 %; PLT - PLATELET COUNT 328 10^3/uL (130-450); RED BLOOD COUNT 3.54 10^6/uL (4.20-5.40); RED CELL DISTRIBUTION WIDTH 19.1 % (12.0-15.0); WHITE BLOOD COUNT 5.1 x10^3/uL (4.8-10.8)
[2018-05-01 13:51] LABS: ALBUMIN 3.4 g/dL (3.2-5.5); ALBUMIN/GLOBULIN RATIO 1.1 (1.0-2.2); BILIRUBIN,TOTAL 0.8 mg/dL (0.2-1.0); CALCIUM 9.1 mg/dL (8.5-10.3); CREATININE 1.1 mg/dL (0.4-1.0); TOTAL PROTEIN 6.6 g/dL (6.7-8.2)
== END 2018-05-01 23:59 | disposition home or self-care (01) ==
LOC: LAB.N 08:00
DX: C64.9 Malignant neoplasm of unspecified kidney, except renal pelvis (principal)
CPT/HCPCS: 36415; 80053; 85025

== ENCOUNTER 2018-08-10 11:21 | Emergency (ER) | payer MEDICAID ==
--- NOTE | 2018-08-10 11:50 | ED Physician Documentation ---
PD HPI SKIN - Stated complaint Stated Complaint: SORE ON ABD - Chief complaint Chief Complaint: General - History obtained from History obtained from: Patient - History of Present Illness Timing - onset: How many days ago (10) Timing - duration: Days (10) Timing - details: Gradual onset (She was hospitalized and received Lovenox shots in the abdomen. 1 of the sites did get bruising swelling and tenderness at it. She has subsequently done the Lovenox shots on the other side of the abdomen and has very small bruising in a couple of those spots. The area in the right lower abdomen has remained firm and rounded in the last day or 2 has had increased swelling, and pain. There is also some redness to it. She states the bruising color that had developed is still dark purple.) Location: Abdomen Quality / character: Painful, Discolored, Swelling. 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 : Other HEENT: None Psych: Depression Musculoskeletal: Osteoarthritis Derm: Psoriasis Other Past Medical History: kidney cancer - Past Surgical History Past Surgical History: Yes General: Cholecystectomy, Hiatal hernia repair Ortho: Carpal Tunnel surgery /BARREL ENDSHAKE ADJUSTER: Hysterectomy HEENT: Tonsil/Adenoidectomy - Present Medications Home Medications: Ambulatory Orders Medication Instructions Recorded Confirmed Prazosin HCl 4 mg PO QPM 09/02/13 08/10/18 Ranitidine HCl [Zantac] 150 mg PO DAILY 03/28/14 08/10/18 Albuterol Sulfate [Proair Hfa 2 puffs INH Q4H PRN 02/11/18 08/10/18 Inhaler] Fluticasone 110 Mcg [Flovent] 2 puffs INH BID 02/11/18 08/10/18 Ipratropium/Albuterol Sulfate 3 ml INH QID PRN 02/11/18 08/10/18 [Iprat-Albut 0.5-3(2.5) mg/3 ml] hydrOXYzine HCl [Hydroxyzine HCl] 25 mg PO BID PRN 02/11/18 08/10/18 Cyclobenzaprine [Flexeril] 10 mg PO TID PRN #20 tablet 04/17/18 08/10/18 Ondansetron Odt [Zofran] 4 mg TL Q6H PRN #10 tablet 04/17/18 08/10/18 Cabozantinib S-Malate [Cabometyx] 1 tab ORAL DAILY 08/10/18 08/10/18 Doxycycline Hyclate 100 mg PO BID #14 capsule 08/10/18 Enoxaparin Sodium 1 syr INJ BID 08/10/18 08/10/18 Hydrocodone/Acetaminophen [[place] 1 each PO Q6H PRN #15 tablet 08/10/18 5-325 Tablet] - Allergies Allergies/Adverse Reactions: Allergies Allergy/AdvReac Type Severity Reaction Status Date / Time iodine Allergy Severe Nausea Verified 08/11/18 01:21 Latex, Natural Rubber Allergy Unknown Verified 08/11/18 01:21 bee stings Allergy Severe Anaphylaxis Uncoded 08/11/18 01:21 paper tape Allergy Intermediate Hives Uncoded 08/11/18 01:21 - Social History Does the pt smoke?: No Smoking Status: Never smoker Does the pt drink ETOH?: Yes ETOH Use: Liquor Does the pt have substance abuse?: No Substance Use and Type: Marijuana - Immunizations Immunizations are current?: Yes Immunizations: TDAP >10years/unknown - POLST Patient has POLST: Yes POLST Status: Full Code PD ED PE NORMAL - Vitals Vital signs reviewed: Yes - General General: Alert and oriented X 3, No acute distress, Well developed/nourished - Abdomen Abdomen: Soft, Non tender (only in area of the bruising and lump. ) - Derm Derm: Normal color, Warm and dry, Other (She has a hand sized area of ecchymosis in the right lower abdomen. Centimeter at that is a area of firmness with some fluctuance measuring about golf ball sized. It is slightly tender. There is some mild warmth and redness of the skin overlying it as well. No obvious drainage. Bedside ultrasound showed some fluctuance to it.) Results - Vitals Vitals: Vital Signs - 24 hr 08/10/18 08/10/18 11:25 14:16 Temperature 37 C Heart Rate 79 78 Respiratory 20 14 Rate Blood Pressure 152/98 H 158/79 H O2 Saturation 99 98 Oxygen O2 Source Room air - Labs Labs: Microbiology 08/10/18 13:34 Wound Culture - Preliminary Abdomen Procedures - Abscess I&D (location) right lower abd wall Preparation: Confirmed with ultrasound, Lidocaine 1%, With epi Incision: Incised with scalpel, Loculations broken, Culture obtained. No: Purulent drainage (Drainage of old dark blood consistent with hematoma. No obvious purulence.), Packed Other: Pt tolerated well, Dressing applied, Antibiotic prescribed PD MEDICAL DECISION MAKING - ED course Complexity details: considered differential (She has bruising discoloration of the skin and a localized area of tenderness. Given the increased tenderness in size of it in the last day or 2, I would be concerned for infection developing in the hematoma. Potentially could have been rebleeding as well but would be less likely in this delayed timeframe. I talked about it with her and we elected to incise and drain the area and culture it for possible infection.), d/w patient Departure - Departure Disposition: 01 Home, Self Care Clinical Impression: Abdominal wall hematoma Qualifiers: Encounter type: subsequent encounter Qualified Code(s): S30.1XXD - Contusion of abdominal wall, subsequent encounter Condition: Stable Record reviewed to determine appropriate education?: Yes Instructions: ED Hematoma Follow-Up: Josesito Kwok PA-C [Primary Care Provider] - Prescriptions: Doxycycline Hyclate 100 mg PO BID #14 capsule Hydrocodone/Acetaminophen [[place] 5-325 Tablet] 1 each PO Q6H PRN #15 tablet PRN Reason: Pain Comments: There was a collection of old blood within that tender area consistent with a hematoma. However concerning was the increasing tenderness of the area so we worry about early infection. Allowing it to drain is a good treatment for both hematoma and abscess. We will add doxycycline antibiotic twice daily for at least the next 3 days or so pending the culture from the swab I obtained today. If that shows no signs of infection, then we would be able to discontinue the antibiotics. I feel this would be better to do it this way rather than allow an early infection to develop more in the meantime. Follow-up with your primary care towards the end of the week, call for an appointment. Discharge Date/Time: 08/10/18 14:27
[2018-08-10] MEDS ORDERED: LIDOCAINE MPF 1%-EPI 1:200000 30 ML VIAL SUBQ STA (11:59)
[2018-08-10] MEDS ORDERED: HYDROcod/ACETAM 5/325 MG TABLET PO STA (11:59)
[2018-08-10] MEDS ORDERED: DOXYCYCLINE 100 MG TABLET PO STA (13:39)
[2018-08-10 14:17] VITALS: BP 158/79
== END 2018-08-10 14:27 | disposition home or self-care (01) ==
LOC: ED 11:21
DX: S30.1XXA Contusion of abdominal wall, initial encounter (principal); W26.8XXA Contact with other sharp object(s), not elsewhere classified, initial encounter; Y93.89 Activity, other specified; Z86.73 Personal history of transient ischemic attack (TIA), and cerebral infarction without residual deficits; Z86.711 Personal history of pulmonary embolism; Z79.01 Long term (current) use of anticoagulants
CPT/HCPCS: 10060; 87070; 87205; 99283; A9270

== ENCOUNTER 2018-08-11 00:44 | Outpatient (CLI) | payer MEDICAID | END 2018-08-11 00:45 | disposition critical access hospital (66) | LOC: EMS 00:44 | PROVIDERS: ATTEND Surgery | DX: R58 Hemorrhage, not elsewhere classified (principal); R10.9 Unspecified abdominal pain | CPT/HCPCS: A0425; A0429; A0999 ==

== ENCOUNTER 2018-08-11 01:02 | Emergency (ER) | payer MEDICAID ==
[2018-08-11] MEDS ORDERED: BUFFERED LIDOCAINE 10 ML SYRINGE SUBQ STA (01:43)
[2018-08-11 02:00] LABS: BASOPHILS % (AUTO) 0.4 %; EOSINOPHILS # (AUTO) 0.1 10^3/uL (0.0-0.7); EOSINOPHILS % (AUTO) 1.1 %; HGB - HEMOGLOBIN 12.8 g/dL (12.0-16.0); LYMPHOCYTES % (AUTO) 33.6 %; MEAN CORPUSCULAR HEMOGLOBIN 29.8 pg (27.0-31.0); MEAN CORPUSCULAR VOLUME 90.2 fL (81.0-99.0); MEAN PLATELET VOLUME 7.3 fL (7.9-10.8); MONOCYTES # (AUTO) 0.5 10^3/uL (0.0-1.0); MONOCYTES % (AUTO) 9.2 %; NEUTROPHILS # (AUTO) 3.3 10^3/uL (1.5-6.6); NEUTROPHILS % (AUTO) 55.7 %; PLT - PLATELET COUNT 172 10^3/uL (130-450); RED BLOOD COUNT 4.29 10^6/uL (4.20-5.40); RED CELL DISTRIBUTION WIDTH 15.4 % (12.0-15.0)
[2018-08-11 02:12] LABS: ALBUMIN 3.3 g/dL (3.2-5.5); BILIRUBIN,TOTAL 0.5 mg/dL (0.2-1.0); CALCIUM 8.6 mg/dL (8.5-10.3); TOTAL PROTEIN 6.7 g/dL (6.7-8.2)
--- NOTE | 2018-08-11 02:50 | ED Physician Documentation ---
History of Present Illness - Stated complaint Stated Complaint: HEMMORAGE - Chief complaint Chief Complaint: Abd Pain - History obtained from History obtained from: Patient, Family - History of Present Illness Timing: How many days ago (11) - Additonal information Additional information: 62-year-old female has had a recent operation for kidney cancer and following that she developed a pulmonary embolism and she had a Lovenox shot to the right anterior abdominal wall and she sustained a hematoma with that. Hematoma has grown and today she was seen in the emergency department and had the hematoma incised and drained there was no evidence of infection. She was told to keep the area open and draining and she is on antibiotic until her culture results come back. Her initial read is no WBC's and no organisms. She has had kami bleeding from the area since that time saturating pads continuously and this is not stopped with direct pressure. 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 : Other HEENT: None Psych: Depression Musculoskeletal: Osteoarthritis Derm: Psoriasis - Past Surgical History Past Surgical History: Yes General: Cholecystectomy, Hiatal hernia repair Ortho: Carpal Tunnel surgery /CLOCK REPAIRER: Hysterectomy HEENT: Tonsil/Adenoidectomy - Present Medications Home Medications: Ambulatory Orders Medication Instructions Recorded Confirmed Prazosin HCl 4 mg PO QPM 09/02/13 08/10/18 Ranitidine HCl [Zantac] 150 mg PO DAILY 03/28/14 08/10/18 Albuterol Sulfate [Proair Hfa 2 puffs INH Q4H PRN 02/11/18 08/10/18 Inhaler] Fluticasone 110 Mcg [Flovent] 2 puffs INH BID 02/11/18 08/10/18 Ipratropium/Albuterol Sulfate 3 ml INH QID PRN 02/11/18 08/10/18 [Iprat-Albut 0.5-3(2.5) mg/3 ml] hydrOXYzine HCl [Hydroxyzine HCl] 25 mg PO BID PRN 11/21/18 05/20/19 Cyclobenzaprine [Flexeril] 10 mg PO TID PRN #20 tablet 04/17/18 08/10/18 Ondansetron Odt [Zofran] 4 mg TL Q6H PRN #10 tablet 04/17/18 08/10/18 Cabozantinib S-Malate [Cabometyx] 1 tab ORAL DAILY 08/10/18 08/10/18 Doxycycline Hyclate 100 mg PO BID #14 capsule 08/10/18 Enoxaparin Sodium 1 syr INJ BID 08/10/18 08/10/18 Hydrocodone/Acetaminophen [[place] 1 each PO Q6H PRN #15 tablet 08/10/18 5-325 Tablet] - Allergies Allergies/Adverse Reactions: Allergies Allergy/AdvReac Type Severity Reaction Status Date / Time iodine Allergy Severe Nausea Verified 08/11/18 01:21 Latex, Natural Rubber Allergy Unknown Verified 08/11/18 01:21 bee stings Allergy Severe Anaphylaxis Uncoded 08/11/18 01:21 paper tape Allergy Intermediate Hives Uncoded 08/11/18 01:21 - Social History Does the pt smoke?: No Smoking Status: Never smoker Does the pt drink ETOH?: Yes Does the pt have substance abuse?: No - Immunizations Immunizations are current?: Yes Immunizations: TDAP >10years/unknown - POLST Patient has POLST: Yes POLST Status: Full Code PD ED PE NORMAL - Vitals Vital signs reviewed: Yes (hypertensive ) - General General: Alert and oriented X 3, No acute distress, Well developed/nourished - HEENT HEENT: Atraumatic, PERRL, EOMI - Respiratory Respiratory: No respiratory distress - Abdomen Abdomen: Other (There is ecchymosis to the right lateral abdominal wall consistent with a hematoma and the size is extensive at about 16cm across. There is a central area of palpable hematoma about 6cm across and an X like wound to this that is oozing blood. The dressing is soaked. ) - Derm Derm: Normal color, Warm and dry, No rash Results - Vitals Vitals: Vital Signs - 24 hr 08/11/18 01:12 Temperature 37 C Heart Rate 91 Respiratory 18 Rate Blood Pressure 155/91 H O2 Saturation 99 Oxygen O2 Source Room air - Labs Labs: Laboratory Tests 08/11/18 08/11/18 01:53 01:53 WBC 6.0 RBC 4.29 Hgb 12.8 Hct 38.7 MCV 90.2 MCH 29.8 MCHC 33.0 RDW 15.4 H Plt Count 172 MPV 7.3 L Neut # (Auto) 3.3 Lymph # (Auto) 2.0 [place] # (Auto) 0.5 Eos # (Auto) 0.1 Baso # (Auto) 0.0 Absolute Nucleated RBC 0.00 Nucleated RBC % 0.0 Sodium 140 Potassium 4.2 Chloride 104 Carbon Dioxide 27 Anion Gap 9.0 BUN 18 Creatinine 1.0 Estimated GFR (MDRD) 57 L Glucose 118 H Calcium 8.6 Total Bilirubin 0.5 AST 56 H ALT 71 H Alkaline Phosphatase 74 Total Protein 6.7 Albumin 3.3 Globulin 3.4 Albumin/Globulin Ratio 1.0 Lipase 32 Procedures - Laceration (location) abd wall Wound type: Stellate Anesthesia: Lidocaine 1%, With bicarb Wound Preparation: Hibiclens, Irrigated copiously NS, Wound explored, To the base Skin layer closure: Nylon, Interrupted, Size #-0 - enter number (4-0), Sutures - enter # (3) Other: Patient tolerated well, No complications, Neurovascular intact, Dressing applied Complexity: Simple PD MEDICAL DECISION MAKING - ED course Complexity details: considered differential, d/w patient, d/w family ED course: 62-year-old female with the opening of a hematoma that has continued to ooze blood is on a blood thinner and sutures are placed to stop the bleeding. This works effectively. Departure - Departure Disposition: 01 Home, Self Care Clinical Impression: Abdominal wall hematoma Qualifiers: Encounter type: subsequent encounter Qualified Code(s): S30.1XXD - Contusion of abdominal wall, subsequent encounter Laceration of abdominal wall Qualifiers: Encounter type: initial encounter Qualified Code(s): S31.119A - Laceration without foreign body of abdominal wall, unspecified quadrant without penetration into peritoneal cavity, initial encounter Condition: Stable Instructions: ED Hematoma, ED Laceration Trunk Follow-Up: Josesito Kwok PA-C [Primary Care Provider] - Comments: sutures should be removed in 7-10 days
[2018-08-11 03:36] VITALS: BP 133/82
== END 2018-08-11 03:41 | disposition home or self-care (01) ==
LOC: EDUNIT# → EDBD → ED 01:02
DX: S31.139A Puncture wound of abdominal wall without foreign body, unspecified quadrant without penetration into peritoneal cavity, initial encounter (principal); L76.22 Postprocedural hemorrhage of skin and subcutaneous tissue following other procedure; Y83.8 Other surgical procedures as the cause of abnormal reaction of the patient, or of later complication, without mention of misadventure at the time of the procedure; Z86.711 Personal history of pulmonary embolism; Z79.01 Long term (current) use of anticoagulants; Z85.528 Personal history of other malignant neoplasm of kidney
CPT/HCPCS: 12001; 36415; 80053; 83690; 85025; 99283

== ENCOUNTER 2018-08-14 16:09 | Emergency (ER) | payer MEDICAID ==
--- NOTE | 2018-08-14 18:39 | ED Physician Documentation ---
PD HPI LOWER EXT INJURY - Stated complaint Stated Complaint: RT LEG PX - Chief complaint Chief Complaint: Trauma Ext - History obtained from History obtained from: Patient - History of Present Illness PD HPI LOW EXT INJURY LOCATION: Right, Thigh Type of injury: Other (she is not aware of injury to the thigh, but developed area of swelling and bruising that has gotten very tender through the day. She had one on abd wall few days ago that is improving. She is getting Lovenox daily 120 mg, due to recent PE and has cancer. She has had significant bruising since starting the Lovenox and now 2 hematomas that are painful. No GI bleeding, nosebleeds, gum bleeding.). No: Fall, Twist, Blunt / blow Where injury occurred: Home Timing - onset: Today Timing - details: Gradual onset, Still present Review of Systems Constitutional: reports: Myalgias. denies: Fever, Chills Neurologic: reports: Generalized weakness. 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: Hysterectomy HEENT: Tonsil/Adenoidectomy - Present Medications Home Medications: Ambulatory Orders Medication Instructions Recorded Confirmed Prazosin HCl 4 mg PO QPM 09/02/13 08/15/18 Ranitidine HCl [Zantac] 150 mg PO DAILY 03/28/14 08/15/18 Albuterol Sulfate [Proair Hfa 2 puffs INH Q4H PRN 02/11/18 08/15/18 Inhaler] Fluticasone 110 Mcg [Flovent] 2 puffs INH BID 02/11/18 08/15/18 Ipratropium/Albuterol Sulfate 3 ml INH QID PRN 02/11/18 08/15/18 [Iprat-Albut 0.5-3(2.5) mg/3 ml] hydrOXYzine HCl [Hydroxyzine HCl] 25 mg PO BID PRN 02/11/18 08/15/18 Cyclobenzaprine [Flexeril] 10 mg PO TID PRN #20 tablet 04/17/18 08/15/18 Ondansetron Odt [Zofran] 4 mg TL Q6H PRN #10 tablet 04/17/18 08/15/18 Cabozantinib S-Malate [Cabometyx] 1 tab ORAL DAILY 08/10/18 08/15/18 Doxycycline Hyclate 100 mg PO BID #14 capsule 08/10/18 08/15/18 Enoxaparin Sodium 1 syr INJ BID 08/10/18 08/15/18 Hydrocodone/Acetaminophen [[place] 1 each PO Q6H PRN #15 tablet 08/10/18 08/15/18 5-325 Tablet] Oxycodone HCl/Acetaminophen 1 each PO Q6H PRN #20 tablet 08/14/18 08/15/18 [Percocet 7.5-325 mg Tablet] Rivaroxaban [Xarelto] 15 mg PO BID #14 tablet 08/14/18 08/15/18 Rivaroxaban [Xarelto] 15 mg PO DAILY 08/15/18 08/15/18 - Allergies Allergies/Adverse Reactions: Allergies Allergy/AdvReac Type Severity Reaction Status Date / Time iodine Allergy Severe Nausea Verified 08/15/18 11:23 Latex, Natural Rubber Allergy Unknown Verified 08/15/18 11:23 bee stings Allergy Severe Anaphylaxis Uncoded 08/15/18 11:23 paper tape Allergy Intermediate Hives Uncoded 08/15/18 11:23 - Social History Does the pt smoke?: No Smoking Status: Never smoker Does the pt drink ETOH?: Yes Does the pt have substance abuse?: No - Immunizations Immunizations are current?: Yes Immunizations: TDAP >10years/unknown - POLST Patient has POLST: Yes POLST Status: Full Code PD ED PE NORMAL - Vitals Vital signs reviewed: Yes - General General: Alert and oriented X 3, Well developed/nourished - HEENT HEENT: Atraumatic - Neck Neck: Supple, no meningeal sign, No adenopathy - Cardiac Cardiac: RRR, No murmur - Respiratory Respiratory: Clear bilaterally - Abdomen Abdomen: Soft, Non distended, Other (obese truncally. Prior hematoma right inman nus is minimally tender now. No signs of infection to it. ) - Derm Derm: Normal color, Warm and dry - Extremities Extremities: Other (right anterior medial thigh with area of bruising and tender. There is rounded firmness with central small fluctuance c/w hematoma. ) - Neuro Neuro: Alert and oriented X 3, No motor deficit, No sensory deficit, Normal speech Results - Vitals Vitals: Oxygen O2 Source Room air - Labs Labs: Laboratory Tests 08/14/18 19:19 WBC 6.7 RBC 4.20 Hgb 12.6 Hct 38.2 MCV 90.9 MCH 30.0 MCHC 33.0 RDW 15.3 H Plt Count 269 MPV 8.0 Neut # (Auto) 3.7 Lymph # (Auto) 2.5 [place] # (Auto) 0.5 Eos # (Auto) 0.1 Baso # (Auto) 0.0 Absolute Nucleated RBC 0.01 Nucleated RBC % 0.1 PD MEDICAL DECISION MAKING - ED course Complexity details: reviewed results (normal platelet count, and the hematomas/bruises are effect of her Lovenox. ), considered differential, d/w patient, d/w consultant rn (continuous drier helper Hematology - who said he would defer decision to her usual Hem/Onc Dresher. However the patient said she did not want to continue the Lovenox and had had conversation with her Hem/Onc with the first hematoma, and he was considering changing her to a DOAC. So patient and I had shared decision to stop the Lovenox and change to Xarelto. ) Departure - Departure Disposition: 01 Home, Self Care Clinical Impression: Hematoma, Anticoagulant effect Condition: Stable Record reviewed to determine appropriate education?: Yes Instructions: ED Hematoma Follow-Up: Josesito Kwok PA-C [Primary Care Provider] - Prescriptions: Oxycodone HCl/Acetaminophen [Percocet 7.5-325 mg Tablet] 1 each PO Q6H PRN #20 tablet PRN Reason: Pain Rivaroxaban [Xarelto] 15 mg PO BID #14 tablet Comments: Stop your Lovenox shots. Change to Xarelto 15 mg twice daily until you can follow-up with Dr. Simeon your oncologist. He may prefer a different medicine instead but will try this initially. Other medicines the same. Add oxycodone if needed for pain. Warm moist compresses to the hematoma areas to promote absorption. Discharge Date/Time: 08/14/18 19:58
[2018-08-14] MEDS ORDERED: ACETAMINOPHEN 325 MG TABLET PO STA (18:59)
[2018-08-14] MEDS ORDERED: oxyCODONE 5 MG TABLET PO STA (18:59)
[2018-08-14 19:07] VITALS: BP 127/79
[2018-08-14 19:28] LABS: BASOPHILS % (AUTO) 0.6 %; EOSINOPHILS # (AUTO) 0.1 10^3/uL (0.0-0.7); EOSINOPHILS % (AUTO) 1.4 %; HGB - HEMOGLOBIN 12.6 g/dL (12.0-16.0); LYMPHOCYTES # (AUTO) 2.5 10^3/uL (1.5-3.5); LYMPHOCYTES % (AUTO) 36.7 %; MEAN CORPUSCULAR VOLUME 90.9 fL (81.0-99.0); MONOCYTES # (AUTO) 0.5 10^3/uL (0.0-1.0); MONOCYTES % (AUTO) 7.2 %; NEUTROPHILS # (AUTO) 3.7 10^3/uL (1.5-6.6); NEUTROPHILS % (AUTO) 54.1 %; PLT - PLATELET COUNT 269 10^3/uL (130-450); RED CELL DISTRIBUTION WIDTH 15.3 % (12.0-15.0); WHITE BLOOD COUNT 6.7 x10^3/uL (4.8-10.8)
[2018-08-14] MEDS ORDERED: RIVAROXABAN 15 MG TABLET PO STA (19:48)
== END 2018-08-14 19:58 | disposition home or self-care (01) ==
LOC: ED 16:09
DX: M79.81 Nontraumatic hematoma of soft tissue (principal); T45.515A Adverse effect of anticoagulants, initial encounter; Z86.711 Personal history of pulmonary embolism; Z79.01 Long term (current) use of anticoagulants
CPT/HCPCS: 36415; 85025; 99283; A9270

== ENCOUNTER 2018-08-15 10:51 | Outpatient (CLI) | payer MEDICAID | END 2018-08-15 10:52 | disposition critical access hospital (66) | LOC: EMS 10:51 | PROVIDERS: ATTEND Surgery | DX: M79.661 Pain in right lower leg (principal); R20.2 Paresthesia of skin; R09.89 Other specified symptoms and signs involving the circulatory and respiratory systems | CPT/HCPCS: A0425; A0429; A0999 ==

== ENCOUNTER 2018-08-15 11:12 | Emergency (ER) | payer MEDICAID ==
[2018-08-15] MEDS ORDERED: DEXAMETHASONE 10 MG/ML VIAL PO STA (11:24)
[2018-08-15] MEDS ORDERED: CHERRY SYRUP 10 ML UDC PO ONE (11:24)
--- NOTE | 2018-08-15 11:25 | ED Physician Documentation ---
History of Present Illness - Stated complaint Stated Complaint: RT LEG NUMB - Chief complaint Chief Complaint: General - History obtained from History obtained from: Patient - History of Present Illness Timing: Today - Additonal information Additional information: 62 y/o female has had a kidney operation for cancer and following this she developed a PE and was placed on lovenox. She developed an abdominal wall hematoma and this was partially evacuated and sutured closed when bleeding continued. Yesterday she came back to the ED for a new bruise to the right inner thigh and her lovenox was stopped and she was placed on xaralto. She is here today with increased swelling of the thigh hematoma and numbness to the right foot. The numbness is vague and involves the dorsum and lateral foot. Review of Systems Constitutional: denies: Fever Eyes: denies: Decreased vision Ears: denies: Ear pain Nose: denies: Congestion Throat: denies: Sore throat Cardiac: denies: Chest pain / pressure Respiratory: denies: Dyspnea, Cough GI: denies: Nausea, Vomiting : denies: Dysuria Musculoskeletal: reports: Extremity pain, Extremity swelling Neurologic: reports: Numbness. 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 : Other HEENT: None Psych: Depression Musculoskeletal: Osteoarthritis Derm: Psoriasis - Past Surgical History Past Surgical History: Yes General: Cholecystectomy, Hiatal hernia repair Ortho: Carpal Tunnel surgery /DOCK MANAGER: Hysterectomy HEENT: Tonsil/Adenoidectomy - Present Medications Home Medications: Ambulatory Orders Medication Instructions Recorded Confirmed Prazosin HCl 4 mg PO QPM 09/02/13 08/15/18 Ranitidine HCl [Zantac] 150 mg PO DAILY 03/28/14 08/15/18 Albuterol Sulfate [Proair Hfa 2 puffs INH Q4H PRN 02/11/18 08/15/18 Inhaler] Fluticasone 110 Mcg [Flovent] 2 puffs INH BID 02/11/18 08/15/18 Ipratropium/Albuterol Sulfate 3 ml INH QID PRN 02/11/18 08/15/18 [Iprat-Albut 0.5-3(2.5) mg/3 ml] hydrOXYzine HCl [Hydroxyzine HCl] 25 mg PO BID PRN 02/11/18 08/15/18 Cyclobenzaprine [Flexeril] 10 mg PO TID PRN #20 tablet 04/17/18 08/15/18 Ondansetron Odt [Zofran] 4 mg TL Q6H PRN #10 tablet 04/17/18 08/15/18 Cabozantinib S-Malate [Cabometyx] 1 tab ORAL DAILY 08/10/18 08/15/18 Doxycycline Hyclate 100 mg PO BID #14 capsule 08/10/18 08/15/18 Enoxaparin Sodium 1 syr INJ BID 08/10/18 08/15/18 Hydrocodone/Acetaminophen [[place] 1 each PO Q6H PRN #15 tablet 08/10/18 08/15/18 5-325 Tablet] Oxycodone HCl/Acetaminophen 1 each PO Q6H PRN #20 tablet 08/14/18 08/15/18 [Percocet 7.5-325 mg Tablet] Rivaroxaban [Xarelto] 15 mg PO BID #14 tablet 08/14/18 08/15/18 Rivaroxaban [Xarelto] 15 mg PO DAILY 08/15/18 08/15/18 - Allergies Allergies/Adverse Reactions: Allergies Allergy/AdvReac Type Severity Reaction Status Date / Time iodine Allergy Severe Nausea Verified 08/15/18 11:23 Latex, Natural Rubber Allergy Unknown Verified 08/15/18 11:23 bee stings Allergy Severe Anaphylaxis Uncoded 08/15/18 11:23 paper tape Allergy Intermediate Hives Uncoded 08/15/18 11:23 - Social History Does the pt smoke?: No Smoking Status: Never smoker Does the pt drink ETOH?: Yes Does the pt have substance abuse?: No - Immunizations Immunizations are current?: Yes Immunizations: TDAP >10years/unknown - POLST Patient has POLST: Yes POLST Status: Full Code PD ED PE NORMAL - Vitals Vital signs reviewed: Yes (hypertensive ) - General General: Alert and oriented X 3, Well developed/nourished, Other (The patient has emotional trauma expressed) - HEENT HEENT: Atraumatic, PERRL, EOMI - Respiratory Respiratory: No respiratory distress - Derm Derm: Normal color, Warm and dry, No rash - Extremities Extremities: Other (The patients right thigh has a large ecchymotic area that is firm and tender on the medial aspect. ) - Neuro Neuro: Alert and oriented X 3, dress operator 2-12 intact, No motor deficit, Normal speech, Other (Not able to conclusively demonstrate numbness to the foot. ) Eye Opening: Spontaneous Motor: Obeys Commands Verbal: Oriented GCS Score: 15 - Psych Psych: Normal mood, Normal affect Results - Vitals Vitals: Vital Signs - 24 hr 08/15/18 11:17 Temperature 36.6 C Heart Rate 83 Respiratory 20 Rate Blood Pressure 178/95 H O2 Saturation 100 Oxygen O2 Source Room air PD MEDICAL DECISION MAKING - ED course Complexity details: reviewed old records, re-evaluated patient, considered differential, d/w patient, d/w family ED course: 62 y/o female recently put on blood thinners for PE has had nothing but trouble with the lovenox and the lovenox has now been stopped. She has now been placed on xarealto. Today she is in the ED with increased pain, swelling and some mild numbness to the right foot. She is administered decadron to reduce swelling and we will continue the xarealto. Within the hour of receiving the dexamethasone the patient has reduction in the level of pain in her thigh and resolution of her numbness. Departure - Departure Disposition: 01 Home, Self Care Clinical Impression: Hematoma Condition: Stable Instructions: ED Hematoma Follow-Up: Brayan Collazo MD [Primary Care Provider] - Comments: Today it appears you have not tolerated the use of Lovenox for treatment of your pulmonary embolism. We have now started you on Xarelto and the recommendation is to take 15 mg twice per day for 3 weeks and then reduce her dose to 20 mg once per day. Follow-up with Dr. Collazo.
[2018-08-15] MEDS ORDERED: RIVAROXABAN 15 MG TABLET PO STA (12:20)
[2018-08-15 12:32] VITALS: BP 142/123
== END 2018-08-15 12:32 | disposition home or self-care (01) ==
LOC: EDUNIT# → EDBD → ED 11:12
DX: S70.11XA Contusion of right thigh, initial encounter (principal); Z86.711 Personal history of pulmonary embolism; Z79.01 Long term (current) use of anticoagulants; Z79.899 Other long term (current) drug therapy
CPT/HCPCS: 99283; A9270

== ENCOUNTER 2018-08-16 09:50 | Emergency (ER) | payer MEDICAID ==
[2018-08-16] MEDS ORDERED: oxyCODONE 5 MG TABLET PO STA (10:50)
--- NOTE | 2018-08-16 11:01 | ED Physician Documentation ---
History of Present Illness - Stated complaint Stated Complaint: LEG PAIN - Chief complaint Chief Complaint: Ext Problem - History obtained from History obtained from: Patient - History of Present Illness Timing: Today Pain level max: 10 Pain level now: 10 - Additonal information Additional information: Marcus GUEVARA hematoma. Patient with a right leg hematoma. Seen her several times previously. States that she is still having pain. Has a walker at home but is not using it. No recurrent falls. No fevers. She is currently on Xarelto. Nothing makes it better. Worse with walking or palpation. Review of Systems Constitutional: denies: Fever Respiratory: denies: Cough GI: denies: Vomiting : denies: Dysuria Skin: denies: Rash Musculoskeletal: denies: Neck pain, Back pain Neurologic: denies: Headache PD PAST MEDICAL HISTORY - Past Medical History Cardiovascular: Pulmonary embolism, Other Respiratory: Asthma, COPD Neuro: CVA Endocrine/Autoimmune: None GI: GERD STOCK PITCHER: None : Other HEENT: None Psych: Depression Musculoskeletal: Osteoarthritis Derm: Psoriasis - Past Surgical History Past Surgical History: Yes General: Cholecystectomy, Hiatal hernia repair Ortho: Carpal Tunnel surgery /STOCK PITCHER: Hysterectomy HEENT: Tonsil/Adenoidectomy - Present Medications Home Medications: Ambulatory Orders Medication Instructions Recorded Confirmed Prazosin HCl 4 mg PO QPM 09/02/13 08/16/18 Ranitidine HCl [Zantac] 150 mg PO DAILY 03/28/14 08/16/18 Albuterol Sulfate [Proair Hfa 2 puffs INH Q4H PRN 02/11/18 08/16/18 Inhaler] Fluticasone 110 Mcg [Flovent] 2 puffs INH BID 02/11/18 08/16/18 Ipratropium/Albuterol Sulfate 3 ml INH QID PRN 02/11/18 08/16/18 [Iprat-Albut 0.5-3(2.5) mg/3 ml] hydrOXYzine HCl [Hydroxyzine HCl] 25 mg PO BID PRN 02/11/18 08/16/18 Cyclobenzaprine [Flexeril] 10 mg PO TID PRN #20 tablet 04/17/18 08/16/18 Ondansetron Odt [Zofran] 4 mg TL Q6H PRN #10 tablet 04/17/18 08/16/18 Cabozantinib S-Malate [Cabometyx] 1 tab ORAL DAILY 08/10/18 08/16/18 Doxycycline Hyclate 100 mg PO BID #14 capsule 08/10/18 08/16/18 Enoxaparin Sodium 1 syr INJ BID 08/10/18 08/16/18 Hydrocodone/Acetaminophen [[place] 1 each PO Q6H PRN #15 tablet 08/10/18 08/16/18 5-325 Tablet] Oxycodone HCl/Acetaminophen 1 each PO Q6H PRN #20 tablet 08/14/18 08/16/18 [Percocet 7.5-325 mg Tablet] Rivaroxaban [Xarelto] 15 mg PO BID #14 tablet 08/14/18 08/16/18 Oxycodone HCl/Acetaminophen 1 - 2 each PO Q6H PRN #14 tablet 08/16/18 [Percocet 5-325 mg Tablet] - Allergies Allergies/Adverse Reactions: Allergies Allergy/AdvReac Type Severity Reaction Status Date / Time iodine Allergy Severe Nausea Verified 08/16/18 09:57 Latex, Natural Rubber Allergy Unknown Verified 08/16/18 09:57 bee stings Allergy Severe Anaphylaxis Uncoded 08/16/18 09:57 paper tape Allergy Intermediate Hives Uncoded 08/16/18 09:57 - Social History Does the pt smoke?: No Smoking Status: Never smoker Does the pt drink ETOH?: Yes Does the pt have substance abuse?: No - Immunizations Immunizations are current?: Yes Immunizations: TDAP >10years/unknown - POLST Patient has POLST: Yes POLST Status: Full Code PD ED PE NORMAL - Vitals Vital signs reviewed: Yes - General General: Alert and oriented X 3, No acute distress - HEENT HEENT: Moist mucous membranes - Neck Neck: Supple, no meningeal sign - Derm Derm: Warm and dry - Extremities Extremities: Other (R thigh - 4 x 10 cm area of ecchymosis and induration. Tender to palpation. No warmth. No signs of infection. This is on the medial and posterior right thigh, approximately two thirds of the way distal. NVI) - Neuro Neuro: Alert and oriented X 3 - Psych Psych: Normal mood, Normal affect Results - Vitals Vitals: Vital Signs - 24 hr 08/16/18 08/16/18 09:55 11:11 Temperature 36.2 C L 36.5 C Heart Rate 92 75 Respiratory 16 12 Rate Blood Pressure 139/102 H 149/86 H O2 Saturation 98 99 Oxygen O2 Source Room air PD MEDICAL DECISION MAKING - ED course Complexity details: reviewed old records, considered differential, d/w patient ED course: Patient with a thigh hematoma with bruising. Deven wrap applied for compression. Will prescribe pain meds for home and have her utilize her walker for ambulation. No need for drainage at this time. No infection. Patient counseled regarding signs and symptoms for which I believe and urgent re- evaluation would be necessary. Patient with good understanding of and agreement to plan and is comfortable going home at this time This document was made in part using voice recognition software. While efforts are made to proofread this document, sound alike and grammatical errors may occur. Departure - Departure Disposition: 01 Home, Self Care Clinical Impression: Hematoma of leg Qualifiers: Encounter type: initial encounter Laterality: right Qualified Code(s): S80.11XA - Contusion of right lower leg, initial encounter Condition: Good Instructions: ED Hematoma Follow-Up: Brayan Collazo MD [Primary Care Provider] - Within 3 Days Prescriptions: Oxycodone HCl/Acetaminophen [Percocet 5-325 mg Tablet] 1 - 2 each PO Q6H PRN #14 tablet PRN Reason: pain Comments: You should be using a walker at home. Leave the Deven wrap in place for 2 to 3 days. You can apply ice as well. Do not drink alcohol or drive while on narcotic pain medicine. Note that many narcotic pain relievers also contain tylenol/acetaminophen. Please ensure that your total dose of acetaminophen from all sources does not ex ceed 3 grams (3000mg) per day. You may constipated on this medication, take a stool softener such as "Colace" twice a day while you are on it. Also recommend a xxxt-dbh-rnnmdod laxative such as senna or MiraLAX any day that you do not have a bowel movement. If you received narcotic pain medication in the emergency department, do not drive or operate machinery for the next 24 hours. Discharge Date/Time: 08/16/18 11:16
[2018-08-16 11:12] VITALS: BP 149/86
== END 2018-08-16 11:16 | disposition home or self-care (01) ==
LOC: ED 09:50
DX: S70.11XA Contusion of right thigh, initial encounter (principal); X58.XXXA Exposure to other specified factors, initial encounter; Z86.711 Personal history of pulmonary embolism; Z79.01 Long term (current) use of anticoagulants
CPT/HCPCS: 99283; A9270

== ENCOUNTER 2019-05-18 13:15 | Outpatient (CLI) | payer MEDICAID ==
--- NOTE | 2019-05-18 20:59 | SLEEP CARE CONSULTATION ---
Information from patient questionnaire entered by Zeina Padilla. I have reviewed and concur with the information entered by Zeina Padilla. This document represents the service I personally performed and the decisions made by me, Mirtha Covarrubias MD, [facility]. History of Present Illness Previous diagnosis: Moderate, Obstructive Sleep Apnea-Hypopnea Syndrome AHI: 16.8 Reason for follow up: annual Equipment type: CPAP Equipment obtained from: [employer] Prior sleep studies: Yes HPI additional information: HPI: Ms. Cardenas returned today for follow up of nasal CPAP therapy. She was diagnosed to have mild obstructive sleep apnea-hypopnea syndrome. She has not used her CPAP much. Recently, she was admitted to [facility] and was told to use it regularly. While in the hospital, she was put on an autoCPAP set low between 5 and 15 cmH2O (her machine is set at 10 14 cmH2O) and tolerated it well with a Respironics DreamWear nasal cushion mask (she has ResMed AirFit P-10 nasal pillows at home). [employer] is her durable medical supplier. She was instructed to have her machine turned down to 5 15 cmH2O. Subjective Initial [place] Sleepiness Scale score: 14 Allergies and Home Medications Drug allergies reviewed: Yes (NKDA) Home medication list reviewed: Yes Review of Systems Review of systems same as previous: Yes Physical Exam Height: 5 ft Weight: 309 lb Body Mass Index: 60.3 BMI Classification: Morbidly Obese Impression and Plan IMPRESSION: 1. Obstructive Sleep Apnea-Hypopnea Syndrome, mild (AHI of 11 on her most recent home sleep apnea test), with the patient would like to start using her CPAP again now. I manually lowered her Respironics DreamStation to 5 15 cmH2O. PLAN: 1. Use the CPAP regular as instructed by [facility]. 2. Try to lose weight 3. Return in one month for a follow up. I spent 100% of this visit face to face with the patient with greater than 50% of this was spent time counseling the patient and coordination of care.
== END 2019-05-18 13:16 | disposition home or self-care (01) ==
LOC: SC 13:15
PROVIDERS: ATTEND Internal Medicine Pulmonary Disease
DX: G47.33 Obstructive sleep apnea (adult) (pediatric) (principal); E66.01 Morbid (severe) obesity due to excess calories; Z68.44 Body mass index [BMI] 60.0-69.9, adult
CPT/HCPCS: 99212; 99213

== ENCOUNTER 2019-09-30 05:36 | Outpatient (CLI) | payer MEDICAID | END 2019-09-30 05:37 | disposition critical access hospital (66) | LOC: EMS 05:36 | PROVIDERS: ATTEND Surgery | DX: R51 Headache (principal); R47.81 Slurred speech; R20.2 Paresthesia of skin | CPT/HCPCS: A0425; A0427; A0999 ==

== ENCOUNTER 2019-09-30 05:53 | Emergency (ER) | payer MEDICAID ==
--- NOTE | 2019-09-30 06:09 | ED Physician Documentation ---
PD HPI HEADACHE - Stated complaint Stated Complaint: STROKE - Chief complaint Chief Complaint: Neuro - History obtained from History obtained from: Patient, EMS - History of Present Illness Timing - onset: Enter time (03:00 (see narrative below)) Timing - onset during: Rest Timing - details: Abrupt onset Pain level now: 6 Worst headache ever?: No: Worst headache ever? Location: Right Quality: Throbbing, Aching Associated symptoms: No: Fever, Stiff neck, Nausea, Vomiting, Weakness, Numbness, Eye pain, Vision changes Improved by: Nothing Worsened by: Other (no exacerbating factors) Contributing factors: Anticoagulated (xarelto), Hypertension Similar symptoms before: Has not had sx before Recently seen: Not recently seen - Additional information Additional information: BIBA. patient says she went to bed approximately 8 PM without symptoms, awoke approximately 3 AM with right-sided headache, and right UE/right LE pain. denies weakness, numbness. she reports difficulty speaking when she first woke 3 AM but this has resolved. Review of Systems Constitutional: denies: Fever, Chills, Sweats Eyes: reports: Reviewed and negative Ears: reports: Reviewed and negative Nose: reports: Reviewed and negative Cardiac: reports: Reviewed and negative Respiratory: reports: Reviewed and negative GI: reports: Reviewed and negative : denies: Dysuria, Frequency, Incontinent Skin: denies: Rash Musculoskeletal: reports: Extremity pain. denies: Neck pain, Back pain Neurologic: reports: Difficulty speaking (resolved), Headache. denies: Generalized weakness, Focal weakness, Numbness, Confused, Altered mental status, Head injury, LOC PD PAST MEDICAL HISTORY - Past Medical History Cardiovascular: Pulmonary embolism, Other Respiratory: Asthma, COPD Neuro: CVA Endocrine/Autoimmune: None GI: GERD SLING OPERATOR: None : Other HEENT: None Psych: Depression Musculoskeletal: Osteoarthritis Derm: Psoriasis - Past Surgical History Past Surgical History: Yes General: Cholecystectomy, Hiatal hernia repair Ortho: Carpal Tunnel surgery /SLING OPERATOR: Hysterectomy HEENT: Tonsil/Adenoidectomy - Present Medications Home Medications: Ambulatory Orders Medication Instructions Recorded Confirmed Prazosin HCl 4 mg PO QPM 09/02/13 08/16/18 raNITIdine HCl [Zantac] 150 mg PO DAILY 03/28/14 08/16/18 Albuterol Sulfate [Proair Hfa 2 puffs INH Q4H PRN 02/11/18 08/16/18 Inhaler] Fluticasone 110 Mcg [Flovent] 2 puffs INH BID 02/11/18 08/16/18 Ipratropium/Albuterol Sulfate 3 ml INH QID PRN 02/11/18 08/16/18 [Iprat-Albut 0.5-3(2.5) mg/3 ml] hydrOXYzine HCL [Hydroxyzine HCl] 25 mg PO BID PRN 02/11/18 08/16/18 Cyclobenzaprine [Flexeril] 10 mg PO TID PRN #20 tablet 04/17/18 08/16/18 Ondansetron Odt [Zofran] 4 mg TL Q6H PRN #10 tablet 04/17/18 08/16/18 Cabozantinib S-Malate [Cabometyx] 1 tab ORAL DAILY 08/10/18 08/16/18 Doxycycline Hyclate 100 mg PO BID #14 capsule 08/10/18 08/16/18 Enoxaparin Sodium 1 syr INJ BID 08/10/18 08/16/18 Hydrocodone/Acetaminophen [[place] 1 each PO Q6H PRN #15 tablet 08/10/18 08/16/18 5-325 Tablet] Oxycodone HCl/Acetaminophen 1 each PO Q6H PRN #20 tablet 08/14/18 08/16/18 [Percocet 7.5-325 mg Tablet] Rivaroxaban [Xarelto] 15 mg PO BID #14 tablet 08/14/18 08/16/18 Oxycodone HCl/Acetaminophen 1 - 2 each PO Q6H PRN #14 tablet 08/16/18 [Percocet 5-325 mg Tablet] Amlodipine Besylate 10 mg PO 09/30/19 Apremilast [Otezla] 30 mg PO 09/30/19 Cabozantinib S-Malate [Cabometyx] 20 mg PO 09/30/19 Clindamycin [Cleocin] 300 mg PO Q6H 09/30/19 09/30/19 Hydrocodone/Acetaminophen 1 - 2 each PO Q6HR PRN #14 tablet 09/30/19 [Hydrocodon-Acetaminophen 5-325] Lansoprazole 09/30/19 Meloxicam 15 mg PO 09/30/19 Minocycline HCl 100 mg PO 09/30/19 Pramipexole [Mirapex] 0.25 mg PO 09/30/19 Sennosides [Senna] 8.6 mg PO 09/30/19 - Allergies Allergies/Adverse Reactions: Allergies Allergy/AdvReac Type Severity Reaction Status Date / Time iodine Allergy Severe Nausea Verified 09/30/19 06:04 Latex, Natural Rubber Allergy Unknown Verified 09/30/19 06:04 bee stings Allergy Severe Anaphylaxis Uncoded 09/30/19 06:04 paper tape Allergy Intermediate Hives Uncoded 09/30/19 06:04 - Social History Does the pt smoke?: No Smoking Status: Never smoker Does the pt drink ETOH?: Yes Does the pt have substance abuse?: No - Immunizations Immunizations are current?: Yes Immunizations: TDAP >10years/unknown - POLST Patient has POLST: Yes POLST Status: Full Code PD ED PE NORMAL - Vitals Vital signs reviewed: Yes - General General: Alert and oriented X 3, No acute distress, Well developed/nourished - HEENT HEENT: Atraumatic, PERRL, EOMI, Moist mucous membranes - Neck Neck: Supple, no meningeal sign, No bony TTP - Cardiac Cardiac: RRR, No murmur - Respiratory Respiratory: No respiratory distress, Clear bilaterally - Abdomen Abdomen: Soft, Non tender, Non distended - Back Back: No spinal TTP - Derm Derm: Normal color, Warm and dry - Extremities Extremities: No tenderness to palpate, No edema, Other (FROM but pain with active RLE (hip) flexion) - Neuro Neuro: Alert and oriented X 3, dietitian helper 2-12 intact, No motor deficit, No sensory deficit, Normal speech Eye Opening: Spontaneous Motor: Obeys Commands Verbal: Oriented GCS Score: 15 Results - Vitals Vitals: Vital Signs - 24 hr 09/30/19 09/30/19 09/30/19 05:55 06:02 06:32 Temperature 36.6 C Heart Rate 91 92 84 Respiratory 20 18 18 Rate Blood Pressure 142/109 H 142/109 H 151/100 H O2 Saturation 100 100 100 09/30/19 09/30/19 07:02 07:30 Temperature Heart Rate 75 77 Respiratory 15 18 Rate Blood Pressure 130/73 130/85 H O2 Saturation 100 100 Oxygen O2 Source Room air - Labs Labs: Laboratory Tests 09/30/19 09/30/19 09/30/19 06:00 06:00 06:00 WBC 6.8 RBC 3.74 L Hgb 13.1 Hct 39.7 MCV 106.1 H MCH 35.0 H MCHC 33.0 RDW 14.4 Plt Count 189 MPV 10.2 Neut # (Auto) 3.4 Lymph # (Auto) 2.5 [place] # (Auto) 0.7 Eos # (Auto) 0.2 Baso # (Auto) 0.0 Absolute Nucleated RBC 0.00 Nucleated RBC % 0.0 PT 13.4 H INR 1.2 APTT 39.1 H Sodium 139 Potassium 3.9 Chloride 107 Carbon Dioxide 24 Anion Gap 8.0 BUN 23 H Creatinine 1.1 H Estimated GFR (MDRD) 50 L Glucose 116 H Calcium 8.7 Total Bilirubin 0.4 AST 31 ALT 36 Alkaline Phosphatase 58 Total Protein 6.4 L Albumin 3.2 Globulin 3.2 Albumin/Globulin Ratio 1.0 Lipase 54 H - Rads (name of study) CTA head Radiology: Prelim report reviewed, See rad report CTA neck Radiology: Prelim report reviewed, See rad report chest xray Radiology: Prelim report reviewed, See rad report PD MEDICAL DECISION MAKING - ED course Complexity details: reviewed old records, reviewed results, re-evaluated patient, considered differential, d/w patient ED course: note that indications for radiology studies are incorrect (patient does not have facial droop nor chest pain; CTA head and neck as well as CXR were all ordered for right-sided DIAS, RUE and RLE pain). results of radiology studies and blood tests are reassuring and nondiagnostic; no evidence of acute/emergent process. HPI does not suggest ischemic (thrombotic or embolic) CVA and CTA head/neck do not evidence bleeding or other emergent process. She appears comfortable on reexam and reports improvement in symptoms. She is comfortable with plan to d/c, return if worse and follow up with PMD Departure - Departure Disposition: 01 Home, Self Care Clinical Impression: Headache Qualifiers: Headache type: unspecified Headache chronicity pattern: acute headache Intractability: not intractable Qualified Code(s): R51 - Headache Extremity pain Qualifiers: Extremity pain location: unspecified extremity Qualified Code(s): M79.609 - Pain in unspecified limb Condition: Good Instructions: ED Acute Pain [facility] Follow-Up: MAKI COLEY MD [Primary Care Provider] - Within 1 week Prescriptions: Hydrocodone/Acetaminophen [Hydrocodon-Acetaminophen 5-325] 1 - 2 each PO Q6HR P RN #14 tablet PRN Reason: Pain Discharge Date/Time: 09/30/19 08:22 NIHSS - Level of Consciousness Level of consciousness: (0) Alert, Keenly responsive LOC Questions: (0) Answers both Q's correct LOC Commands: (0) Performs both correctly - Gaze Best Gaze: (0) Normal - Visual Visual: (0) No loss - Facial Palsy Facial Palsy: (0) Normal, symmetrical movement - Motor Arms (both separate) Motor Arm (right): (0) No drift Motor Arm (left): (0) No drift - Motor Legs (both separate) Motor Leg (right): (0) No drift Motor Leg (left): (0) No drift - Limb Ataxia Limb Ataxia: (0) Absent - Sensory Sensory: (0) Normal - Best Language Best Language: (0) No aphasia - Dysarthria Dysarthria: (0) Normal - Extinction and Inattention (formally neg Extinction and inattention: (0) No abnormality - Total Score/Results Total Score/Result: 0
[2019-09-30] MEDS ORDERED: MORPHINE 2 MG/ML CARPUJECT IVP STA (06:10)
[2019-09-30 06:18] LABS: BASOPHILS % (AUTO) 0.3 %; EOSINOPHILS # (AUTO) 0.2 10^3/uL (0.0-0.7); EOSINOPHILS % (AUTO) 3.4 %; HGB - HEMOGLOBIN 13.1 g/dL (12.0-16.0); LYMPHOCYTES # (AUTO) 2.5 10^3/uL (1.5-3.5); LYMPHOCYTES % (AUTO) 36.2 %; MEAN CORPUSCULAR VOLUME 106.1 fL (81.0-99.0); MEAN PLATELET VOLUME 10.2 fL (7.9-10.8); MONOCYTES # (AUTO) 0.7 10^3/uL (0.0-1.0); MONOCYTES % (AUTO) 10.2 %; NEUTROPHILS # (AUTO) 3.4 10^3/uL (1.5-6.6); NEUTROPHILS % (AUTO) 49.8 %; PLT - PLATELET COUNT 189 10^3/uL (130-450); RED BLOOD COUNT 3.74 10^6/uL (4.20-5.40); RED CELL DISTRIBUTION WIDTH 14.4 % (12.0-15.0); WHITE BLOOD COUNT 6.8 x10^3/uL (4.8-10.8)
[2019-09-30 06:24] LABS: INR 1.2 (0.8-1.2); PT - PROTHROMBIN TIME 13.4 secs (9.9-12.6)
[2019-09-30 06:27] LABS: ALBUMIN 3.2 g/dL (3.2-5.5); BILIRUBIN,TOTAL 0.4 mg/dL (0.2-1.0); CALCIUM 8.7 mg/dL (8.5-10.3); CREATININE 1.1 mg/dL (0.4-1.0); TOTAL PROTEIN 6.4 g/dL (6.7-8.2)
[2019-09-30 06:32] LABS: PARTIAL THROMBOPLASTIN TIME 39.1 secs (24.9-33.3)
[2019-09-30] MEDS ORDERED: IOVERSOL 320 100 ML VIAL IVP ONE ×2 (06:44→06:52)
[2019-09-30 07:36] VITALS: BP 130/85
[2019-09-30] MEDS ORDERED: HYDROcod/ACETAM 5/325 MG TABLET PO STA (07:44)
--- NOTE | 2019-09-30 08:21 | XRAY Report ---
PROCEDURE: Chest 1 View X-Ray INDICATIONS: chest pain TECHNIQUE: One view of the chest was acquired. COMPARISON: 04/17/2018 FINDINGS: Surgical changes and devices: None. Lungs and pleura: No pleural effusions or pneumothorax. Lungs are clear. Mediastinum: Mediastinal contours appear normal. Heart size is enlarged. Bones and chest wall: No suspicious bony lesions. Overlying soft tissues appear unremarkable. IMPRESSION: No acute cardiopulmonary pathology. No discrepancies. Reviewed by: Humble Yadav MD on 09/30/2019 8:20 AM PDT Approved by: Humble Yadav MD on 09/30/2019 8:20 AM PDT Station ID: [id number]
--- NOTE | 2019-09-30 08:28 | CT Report ---
PROCEDURE: ANGIO HEAD W/WO INDICATIONS: L sided facial droop CONTRAST: IV CONTRAST: Optiray 320 ml: 80 PO CONTRAST: *NO PO CONTRAST TECHNIQUE: Precontrast 4.5 mm thick angled axial sections acquired from the foramen magnum to the vertex. Afte r the administration of intravenous contrast, 1 mm thick sections acquired through the [place] of [place] is. Postcontrast 4.5 mm thick sections then re-acquired from the foramen magnum to the vertex. 3-di mensional tfefmxc-upsvbdikn-gmvmvlyasz (MIP) and/or volume rendering reformats were acquired of the c entral intracranial vasculature. For radiation dose reduction, the following was used: automated ex posure control, adjustment of mA and/or kV according to patient size. COMPARISON: MR brain 08/12/2016 FINDINGS: Image quality: Excellent. Anterior circulation: Intracranial internal carotid arteries are normal in flow. Atherosclerotic kaye cifications noted in the cavernous segments of the internal carotid arteries bilaterally which cause mild narrowing of the vessels. The flow within the paired anterior cerebral arteries is normal and s ymmetric. The flow within the middle cerebral arteries is normal and symmetric. The anterior commun icating artery is seen. No aneurysms are seen. Posterior circulation: Visualized portions of the vertebral arteries demonstrate normal caliber, and join to form a normal appearing basilar artery. Flow within the posterior cerebral arteries is norm al and symmetric. No aneurysms are seen. CSF spaces: Ventricles are normal in size and shape. Basal cisterns are patent. No extra-axial flu id collections. Brain: No midline shift. No intracranial bleeds or masses. Fitch-white matter interface appears int act. Skull and face: Calvarium and facial bones appear intact, without suspicious lesions. Sinuses: Visualized sinuses and mastoids are clear. IMPRESSION: 1. No acute intracranial disease process. 2. No large vessel occlusion, hemodynamically significant vascular stenosis, vascular dissection or a neurysm. Reviewed by: Kirsten Rocha MD, PhD on 09/30/2019 8:26 AM PDT Approved by: Kirsten Rocha MD, PhD on 09/30/2019 8:26 AM PDT Station ID: [id number]
--- NOTE | 2019-09-30 08:32 | CT Report ---
PROCEDURE: ANGIO NECK W INDICATIONS: L sided facial droop, L neck pain CONTRAST: IV CONTRAST: Optiray 320 ml: 80 PO CONTRAST: *NO PO CONTRAST TECHNIQUE: After the administration of intravenous contrast, 1.5 mm axial sections acquired from the aortic arch to the [place] of [place]. Cor[place] 3-D maximum intensity projection (MIP) and/or volume rendering ref ormats were then performed. For radiation dose reduction, the following was used: automated exposur e control, adjustment of mA and/or kV according to patient size. COMPARISON: None. FINDINGS: Image quality: Excellent. Carotid system: The great vessels demonstrate a conventional anatomy as they arise from the aortic a rch. The origins of the common carotid arteries appear patent. The common carotid arteries demonstr ate normal calibers. The common carotid arteries follow a medial course projecting into the retrophar yngeal space. The bifurcation regions appear normal bilaterally. Mild atherosclerotic irregularity n oted in the origins of the internal carotid arteries which causes less than 50% stenosis of the vesse ls. Posterior circulation: The origins of the vertebral arteries appear patent. The more superior porti ons of the vertebral arteries demonstrate normal course and caliber. They join to form a normal appe aring basilar artery. Soft tissues: Visualized neck soft tissues demonstrate no suspicious abnormalities. The thyroid gla nd is normal in size. Bones: No suspicious bony lesions. Spine degenerative disc disease and facet arthropathy are noted. Visualized cervical spine appears normally aligned. IMPRESSION: 1. No large vessel occlusion, hemodynamically significant vascular stenosis or vascular dissection. 2. Less than 50% stenosis of the origins of the internal carotid arteries. 3. Vertebral arteries are fully patent. The estimate of stenosis included in the report of the imaging study was calculated using the NASCET method Reviewed by: Kirsten Rocha MD, PhD on 09/30/2019 8:31 AM PDT Approved by: Kirsten Rocha MD, PhD on 09/30/2019 8:31 AM PDT Station ID: [id number]
== END 2019-09-30 08:22 | disposition home or self-care (01) ==
LOC: ED 05:53
DX: R51 Headache (principal); M79.604 Pain in right leg; M79.601 Pain in right arm; M79.605 Pain in left leg; M79.602 Pain in left arm; I10 Essential (primary) hypertension; Z79.01 Long term (current) use of anticoagulants; Z86.711 Personal history of pulmonary embolism; Z86.73 Personal history of transient ischemic attack (TIA), and cerebral infarction without residual deficits
CPT/HCPCS: 36415; 70496; 70498; 71045; 80053; 83690; 85025; 85610; 85730; 96374; 99284; A9270; Q9967

== ENCOUNTER 2019-10-10 16:38 | Observation (INO) | payer MEDICAID ==
--- NOTE | 2019-10-10 17:24 | ED Physician Documentation ---
PD HPI ABD PAIN - Stated complaint Stated Complaint: ABD PX/RECTAL BLEED - Chief complaint Chief Complaint: Abd Pain - History obtained from History obtained from: Patient - Additional information Additional information: 64-year-old woman chronically on Xarelto for history of PE presents with lower abdominal pain and bright red blood per rectum with some rectal burning for the last 5 to 6 days. No history of prior GI bleeds. Last colonoscopy per her was approximately 5 years ago with some polyps but otherwise negative. 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 : Other HEENT: None Psych: Depression Musculoskeletal: Osteoarthritis Derm: Psoriasis - Past Surgical History Past Surgical History: Yes General: Cholecystectomy, Hiatal hernia repair Ortho: Carpal Tunnel surgery /DECORATIVE ENGRAVER: Hysterectomy HEENT: Tonsil/Adenoidectomy - Present Medications Home Medications: Ambulatory Orders Medication Instructions Recorded Confirmed Prazosin HCl 4 mg PO QPM 09/02/13 08/16/18 raNITIdine HCl [Zantac] 150 mg PO DAILY 03/28/14 08/16/18 Albuterol Sulfate [Proair Hfa 2 puffs INH Q4H PRN 02/11/18 08/16/18 Inhaler] Fluticasone 110 Mcg [Flovent] 2 puffs INH BID 02/11/18 08/16/18 Ipratropium/Albuterol Sulfate 3 ml INH QID PRN 02/11/18 08/16/18 [Iprat-Albut 0.5-3(2.5) mg/3 ml] hydrOXYzine HCL [Hydroxyzine HCl] 25 mg PO BID PRN 02/11/18 08/16/18 Cyclobenzaprine [Flexeril] 10 mg PO TID PRN #20 tablet 04/17/18 08/16/18 Ondansetron Odt [Zofran] 4 mg TL Q6H PRN #10 tablet 04/17/18 08/16/18 Cabozantinib S-Malate [Cabometyx] 1 tab ORAL DAILY 08/10/18 08/16/18 Doxycycline Hyclate 100 mg PO BID #14 capsule 08/10/18 08/16/18 Enoxaparin Sodium 1 syr INJ BID 08/10/18 08/16/18 Hydrocodone/Acetaminophen [[place] 1 each PO Q6H PRN #15 tablet 08/10/18 08/16/18 5-325 Tablet] Oxycodone HCl/Acetaminophen 1 each PO Q6H PRN #20 tablet 08/14/18 08/16/18 [Percocet 7.5-325 mg Tablet] Rivaroxaban [Xarelto] 15 mg PO BID #14 tablet 08/14/18 08/16/18 Oxycodone HCl/Acetaminophen 1 - 2 each PO Q6H PRN #14 tablet 08/16/18 [Percocet 5-325 mg Tablet] Amlodipine Besylate 10 mg PO 09/30/19 Apremilast [Otezla] 30 mg PO 09/30/19 Cabozantinib S-Malate [Cabometyx] 20 mg PO 09/30/19 Clindamycin [Cleocin] 300 mg PO Q6H 09/30/19 09/30/19 Hydrocodone/Acetaminophen 1 - 2 each PO Q6HR PRN #14 tablet 09/30/19 [Hydrocodon-Acetaminophen 5-325] Lansoprazole 09/30/19 Meloxicam 15 mg PO 09/30/19 Minocycline HCl 100 mg PO 09/30/19 Pramipexole [Mirapex] 0.25 mg PO 09/30/19 Sennosides [Senna] 8.6 mg PO 09/30/19 - Allergies Allergies/Adverse Reactions: Allergies Allergy/AdvReac Type Severity Reaction Status Date / Time iodine Allergy Severe Nausea Verified 09/30/19 06:04 Latex, Natural Rubber Allergy Unknown Verified 09/30/19 06:04 bee stings Allergy Severe Anaphylaxis Uncoded 09/30/19 06:04 paper tape Allergy Intermediate Hives Uncoded 09/30/19 06:04 - Social History Does the pt smoke?: No Smoking Status: Never smoker Does the pt drink ETOH?: Yes Does the pt have substance abuse?: No - Immunizations Immunizations are current?: Yes Immunizations: TDAP >10years/unknown - POLST Patient has POLST: Yes POLST Status: Full Code PD ED PE NORMAL - Vitals Vital signs reviewed: Yes - General General: Alert and oriented X 3, No acute distress - HEENT HEENT: PERRL, EOMI - Neck Neck: Supple, no meningeal sign, No bony TTP - Cardiac Cardiac: RRR, No murmur - Respiratory Respiratory: No respiratory distress, Clear bilaterally - Abdomen Abdomen: Normal bowel sounds, Soft, Other (Mild low abd TTP) - Female Female : Other (External rectal examination done with Prachi HYMAN shows no external hemorrhoids. No gross blood on her diaper or between the buttocks.) - Back Back: No CVA TTP, No spinal TTP - Derm Derm: Normal color, Warm and dry - Extremities Extremities: No edema, No calf tenderness / cord - Neuro Neuro: Alert and oriented X 3, Normal speech Results - Vitals Vitals: Vital Signs - 24 hr 10/10/19 10/10/19 10/10/19 16:49 17:21 19:10 Temperature 36.7 C 37.1 C Heart Rate 93 83 86 Respiratory 18 17 Rate Blood Pressure 170/105 H 148/93 H O2 Saturation 97 100 100 10/10/19 19:27 Temperature Heart Rate 91 Respiratory 16 Rate Blood Pressure 164/91 H O2 Saturation 98 Oxygen O2 Source Room air - Labs Labs: Laboratory Tests 10/10/19 10/10/19 10/10/19 17:06 17:06 17:06 WBC 7.3 RBC 3.47 L Hgb 12.2 Hct 37.3 MCV 107.5 H MCH 35.2 H MCHC 32.7 RDW 14.6 Plt Count 207 MPV 9.8 Neut # (Auto) 4.0 Lymph # (Auto) 2.3 Crosby # (Auto) 0.6 Eos # (Auto) 0.3 Baso # (Auto) 0.0 Absolute Nucleated RBC 0.00 Nucleated RBC % 0.0 PT 11.7 INR 1.0 Sodium 141 Potassium 4.1 Chloride 110 Carbon Dioxide 23 Anion Gap 8.0 BUN 22 H Creatinine 1.1 H Estimated GFR (MDRD) 50 L Glucose 105 H Calcium 8.5 Total Bilirubin 0.3 AST 35 ALT 35 Alkaline Phosphatase 59 Total Protein 5.9 L Albumin 3.0 L Globulin 2.9 Albumin/Globulin Ratio 1.0 Lipase 49 Blood Type Antibody Screen 10/10/19 17:09 WBC RBC Hgb Hct MCV MCH MCHC RDW Plt Count MPV Neut # (Auto) Lymph # (Auto) Crosby # (Auto) Eos # (Auto) Baso # (Auto) Absolute Nucleated RBC Nucleated RBC % PT INR Sodium Potassium Chloride Carbon Dioxide Anion Gap BUN Creatinine Estimated GFR (MDRD) Glucose Calcium Total Bilirubin AST ALT Alkaline Phosphatase Total Protein Albumin Globulin Albumin/Globulin Ratio Lipase Blood Type A POSITIVE Antibody Screen NEGATIVE - Rads (name of study) CT of the abdomen and pelvis was done without the use of IV contrast because of allergy. Radiology: EMP read contemporaneously (Interval left nephrectomy and excision of large left renal cell carcinoma, no evidence of acute process. Note made of degenerative disc disease in the back.) PD MEDICAL DECISION MAKING - ED course ED course: 64-year-old woman with lower GI bleed. She is anticoagulated on Xarelto, her H&H is good but note made that her hemoglobin is one-point less than it was about a week ago. Given her anticoagulated status we will place her in observation for serial H&H's. Departure - Departure Disposition: ED Place in Observation Clinical Impression: Lower GI bleed, Adequate anticoagulation on anticoagulant therapy Condition: Stable
[2019-10-10] MEDS ORDERED: MORPHINE 2 MG/ML CARPUJECT IVP STA ×2 (17:29→19:27)
[2019-10-10 17:32] LABS: PT - PROTHROMBIN TIME 11.7 secs (9.9-12.6)
[2019-10-10 17:38] LABS: BASOPHILS % (AUTO) 0.3 %; EOSINOPHILS # (AUTO) 0.3 10^3/uL (0.0-0.7); EOSINOPHILS % (AUTO) 3.7 %; HGB - HEMOGLOBIN 12.2 g/dL (12.0-16.0); LYMPHOCYTES # (AUTO) 2.3 10^3/uL (1.5-3.5); LYMPHOCYTES % (AUTO) 31.7 %; MEAN CORPUSCULAR HEMOGLOBIN 35.2 pg (27.0-31.0); MEAN CORPUSCULAR HGB CONC 32.7 g/dL (32.0-36.0); MEAN CORPUSCULAR VOLUME 107.5 fL (81.0-99.0); MEAN PLATELET VOLUME 9.8 fL (7.9-10.8); MONOCYTES # (AUTO) 0.6 10^3/uL (0.0-1.0); MONOCYTES % (AUTO) 8.5 %; NEUTROPHILS % (AUTO) 55.5 %; PLT - PLATELET COUNT 207 10^3/uL (130-450); RED BLOOD COUNT 3.47 10^6/uL (4.20-5.40); RED CELL DISTRIBUTION WIDTH 14.6 % (12.0-15.0); WHITE BLOOD COUNT 7.3 x10^3/uL (4.8-10.8)
[2019-10-10 17:44] LABS: BILIRUBIN,TOTAL 0.3 mg/dL (0.2-1.0); CALCIUM 8.5 mg/dL (8.5-10.3); CREATININE 1.1 mg/dL (0.4-1.0); TOTAL PROTEIN 5.9 g/dL (6.7-8.2)
[2019-10-10] MEDS ORDERED: IOVERSOL 320 100 ML VIAL IVP ONE (18:02)
--- NOTE | 2019-10-10 19:41 | CT Report ---
PROCEDURE: Abdomen/Pelvis WO INDICATIONS: LOW ABD PAIN, HEMATOCHEZIA TECHNIQUE: Noncontrast 5 mm thick sections acquired from the diaphragms to the symphysis. 5 mm coronal and sagi ttal reformats were then performed. For radiation dose reduction, the following was used: automated exposure control, adjustment of mA and/or kV according to patient size. COMPARISON: 02/11/2018. FINDINGS: Image quality: Excellent. ABDOMEN: Lung bases: Lung bases are clear. Heart size is normal. Solid organs: Liver and spleen are normal in size. Gallbladder is presumed to have been surgically removed. Pancreas is normal in contours. No adrenal nodules. Interval left nephrectomy with excisio n of large left renal mass. Right kidney is normal in appearance without hydronephrosis or stone. Peritoneum and bowel: Unenhanced bowel loops demonstrate normal wall thickness and caliber. No free fluid or air. Nodes and vessels: No retroperitoneal or mesenteric adenopathy by size criteria. Aorta and inferior vena cava are normal in caliber. Miscellaneous: No ventral hernias. PELVIS: Genitourinary: Bladder wall thickness is normal. Miscellaneous: No inguinal hernias or adenopathy. Bones: No suspicious bony lesions. No vertebral body compression fractures. Extensive facet arthro herve at L4-L5 with associated canal stenosis. IMPRESSION: 1. Interval left refractory and excision of a large left renal cell carcinoma. 2. No evidence of acute abdominal process. No evidence of metastatic disease on noncontrast images. 3. Incidental note made of marked facet arthropathy and canal stenosis at L4-L5. Reviewed by: Edmond Miller MD on 10/10/2019 7:40 PM PDT Approved by: Edmond Miller MD on 10/10/2019 7:40 PM PDT Station ID: [id number]
[2019-10-10] MEDS ORDERED: SODIUM CHLORIDE FLUSH 0.9% 10 ML SYRINGE IVP PRN (20:01)
[2019-10-10] MEDS ORDERED: MORPHINE 2 MG/ML CARPUJECT IVP PRN (20:01)
[2019-10-10] MEDS ORDERED: ONDANSETRON 4 MG/2 ML VIAL IVP PRN (20:01)
--- NOTE | 2019-10-10 20:10 | HISTORY & PHYSICAL EXAMINATION ---
Chief Complaint - Chief Complaint Chief Complaint: Rectal bleeding History of Present Illness - Admitted From Admitted From:: Home - History Obtained From Records Reviewed: Yes History obtained from: Patient, ER Physician, EMR - History of Present Illness HPI Comment/Other: This is a pleasant 64-year-old female with a past medical history significant for hypertension, morbid obesity, renal cell carcinoma status post nephrectomy, psoriatic arthritis who presents today complaining of rectal bleeding for the past 6 days. She states her symptoms began 6 days ago when she noticed bright red blood per rectum when she would wipe. She also had associated abdominal pain predominantly in the right lower quadrant. No nausea or vomiting. She felt that the bleeding got worse today and that she is on Xarelto for history of pulmonary embolism so she was concerned and sought medical attention. She reports no NSAID use or alcohol use. She reports a prior colonoscopy about 5 years ago which revealed polyps but was otherwise unremarkable. She reports her father did have colon cancer and was diagnosed at the age of 65. She reports no poor appetite, fever, chills, diarrhea, constipation. She does report lower extremity edema which has progressed over the past 2 weeks. She states it began she took a vacation for 1 month at [facility] [employer]. She reports no dyspnea or chest pain. In the emergency department, she is found to be hemodynamically stable. Her hemoglobin was 12.2 which is slightly decreased compared to prior labs from 10 days ago when it was 13.1. Her INR was 1.0. Her platelets were 207. She underwent a CT of the abdomen pelvis without contrast which was unremarkable. Given her history of bleeding and the fact that she is on anticoagulation, the patient did not feel comfortable going home and so medicine was consulted for observation. I did discuss goals of care with the patient she would like to be a full code History - Past Medical History Cardiovascular: reports: Hypertension, Pulmonary embolism Respiratory: reports: Asthma, COPD Neuro: reports: CVA Endocrine/Autoimmune: reports: None GI: reports: GERD, Colon polyps FARROWING WORKER: reports: None : reports: Other (Renal cell carcinoma.) HEENT: reports: None Psych: reports: Depression Musculoskeletal: reports: Osteoarthritis Derm: reports: Psoriasis MRSA Hx?: No - Past Surgical History General: reports: Cholecystectomy, Hiatal hernia repair Ortho: reports: Carpal Tunnel surgery /FARROWING WORKER: reports: Hysterectomy, Other (Nephrectomy.) HEENT: reports: Tonsil/Adenoidectomy - Family & Social History Family History Comment/Other: She reports her father had colon cancer at the age of 65. Her maternal grandmother has a history of diabetes. Her mother had uterine cancer. Living arrangement: At home Living Situation: Alone Social History Notes: She lives alone here in [place], [place]. She has a caregiver who checks on her regularly. She no longer smokes after quitting 10 years ago but did smoke a pack a day for about 40 years. She reports rare alcohol use only on special occasions. Denies any illicit drug use. - POLST Patient has POLST: Yes POLST Status: Full Code Meds/Allgy - Home Medications Home Medications: Ambulatory Orders Medication Instructions Recorded Confirmed Prazosin HCl 4 mg PO QPM 09/02/13 08/16/18 raNITIdine HCl [Zantac] 150 mg PO DAILY 03/28/14 08/16/18 Albuterol Sulfate [Proair Hfa 2 puffs INH Q4H PRN 02/11/18 08/16/18 Inhaler] Fluticasone 110 Mcg [Flovent] 2 puffs INH BID 02/11/18 08/16/18 Ipratropium/Albuterol Sulfate 3 ml INH QID PRN 02/11/18 08/16/18 [Iprat-Albut 0.5-3(2.5) mg/3 ml] hydrOXYzine HCL [Hydroxyzine HCl] 25 mg PO BID PRN 02/11/18 08/16/18 Cyclobenzaprine [Flexeril] 10 mg PO TID PRN #20 tablet 04/17/18 08/16/18 Ondansetron Odt [Zofran] 4 mg TL Q6H PRN #10 tablet 04/17/18 08/16/18 Cabozantinib S-Malate [Cabometyx] 1 tab ORAL DAILY 08/10/18 08/16/18 Doxycycline Hyclate 100 mg PO BID #14 capsule 08/10/18 08/16/18 Enoxaparin Sodium 1 syr INJ BID 08/10/18 08/16/18 Hydrocodone/Acetaminophen [[place] 1 each PO Q6H PRN #15 tablet 08/10/18 08/16/18 5-325 Tablet] Oxycodone HCl/Acetaminophen 1 each PO Q6H PRN #20 tablet 08/14/18 08/16/18 [Percocet 7.5-325 mg Tablet] Rivaroxaban [Xarelto] 15 mg PO BID #14 tablet 08/14/18 08/16/18 Oxycodone HCl/Acetaminophen 1 - 2 each PO Q6H PRN #14 tablet 08/16/18 [Percocet 5-325 mg Tablet] Amlodipine Besylate 10 mg PO 09/30/19 Apremilast [Otezla] 30 mg PO 09/30/19 Cabozantinib S-Malate [Cabometyx] 20 mg PO 09/30/19 Clindamycin [Cleocin] 300 mg PO Q6H 09/30/19 09/30/19 Hydrocodone/Acetaminophen 1 - 2 each PO Q6HR PRN #14 tablet 09/30/19 [Hydrocodon-Acetaminophen 5-325] Lansoprazole 09/30/19 Meloxicam 15 mg PO 09/30/19 Minocycline HCl 100 mg PO 09/30/19 Pramipexole [Mirapex] 0.25 mg PO 09/30/19 Sennosides [Senna] 8.6 mg PO 09/30/19 - Allergies Allergies/Adverse Reactions: Allergies Allergy/AdvReac Type Severity Reaction Status Date / Time iodine Allergy Severe Nausea Verified 09/30/19 06:04 Latex, Natural Rubber Allergy Unknown Verified 09/30/19 06:04 bee stings Allergy Severe Anaphylaxis Uncoded 09/30/19 06:04 paper tape Allergy Intermediate Hives Uncoded 09/30/19 06:04 Review of Systems - Constitutional Constitutional: denies: Fatigue, Fever, Chills, Malaise, Weakness, Poor appetite - Ears, Nose & Throat Ears, Nose & Throat: denies: Nasal discharge, Nasal congestion - Cardiovascular Cariovascular: reports: Edema. denies: Chest pain, Exertional dyspnea, Decr. exercise tolerance - Respiratory Respiratory: denies: Cough, SOB at rest, SOB with exertion - Gastrointestinal Gastrointestinal: reports: Abdominal pain, Rectal bleeding, Bloody stools. denies: Constipation, Diarrhea, Change in bowel habits, Nausea, Vomiting, Reflux/heartburn, Poor appetite - Genitourinary Genitourinary: denies: Frequency, Urgency - Musculoskeletal Musculoskeletal: denies: Muscle pain - Integumentary Integumentary: denies: Rash - Neurological Neurological: denies: General weakness, Focal weakness - Hematologic/Lymphatic Hematologic/Lymphatic: reports: Blood clots. denies: Bleeding tendencies - All Other Systems All Other Systems: reports: Reviewed and negative Prior Level of Functionality: She lives at home alone but does have caregivers. She reports she still drives at times. She ambulates with a walker around the house as well as a wheelchair on occasion. Exam - Vital Signs Reviewed Vital Signs: Yes Vital Signs: Vital Signs x48h Temp Pulse Resp BP Pulse Ox 10/10/19 19:27 91 16 164/91 H 98 10/10/19 19:10 37.1 C 86 17 148/93 H 100 10/10/19 17:21 83 100 10/10/19 16:49 36.7 C 93 18 170/105 H 97 - Physical Exam General Appearance: positive: No acute distress, Alert Eyes Bilateral: positive: Normal inspection, Conjunctivae nml ENT: positive: ENT inspection nml Neck: positive: Nml inspection Respiratory: positive: No respiratory distress. negative: Wheezes, Rales, Rhonchi Cardiovascular: positive: Regular rate & rhythm, No murmur. negative: Tachycardia, Bradycardia, Systolic murmur Abdomen: positive: Nml bowel sounds, No distention, Tenderness (Mild tenderness in the right lower quadrant and suprapubic region). negative: Non-tender, Guarding, Rebound Skin: positive: Warm, Dry Extremities: positive: Pedal edema (+1 pitting edema in the bilateral lower extremities.) Neurologic/Psychiatric: positive: Oriented x3, Motor nml. negative: Disoriented to person, Disoriented to place, Disoriented to time Conclusion/Plan - Problem List (1) Lower GI bleed Conclusion/Plan: Suspect secondary to diverticulosis or hemorrhoide. Her hemoglobin is relatively stable at 12.2. Her blood pressure and heart rate are also stable. Given she is on long-term anticoagulation due to her history of pulmonary embolism, we will observe her overnight and trend her hemoglobin this evening and tomorrow morning. CT of the abdomen and pelvis were unremarkable. If there is no significant drop or further evidence of bleeding then we will likely discharge her home. If her bleeding continues her hemoglobin is a significant drop then we will consult general surgery for evaluation. We will hold anticoagulation overnight. She would benefit from an outpatient colonoscopy given her family history of colon cancer. (2) Anticoagulant long-term use Conclusion/Plan: She is on Xarelto for history of pulmonary embolism. Her INR is within normal limits. Given her BMI is getting 40, ideally she would be on Lovenox or Coumadin as NOAC's were not studied in these patients. This was discussed with the patient and will defer to her outpatient provider to discuss possible alternative regimens or even discontinuing anticoagulation. (3) History of pulmonary embolism Conclusion/Plan: She reports having a pulmonary embolism about 1 year ago when she was diagnosed with her renal cell carcinoma. She was on Lovenox which was discontinued due to infections and localized hematomas at the site of injection. She has been on Xarelto since then. If her bleeding is not significant we will likely discharge her on Xarelto and recommend outpatient follow-up with her grant specialist to discuss the need for continuing anticoagulation. (4) History of renal cell carcinoma Conclusion/Plan: She is status post nephrectomy. She will continue her home medications on discharge and continue with outpatient follow-up. (5) Psoriatic arthritis Conclusion/Plan: Stable. We will continue her home medications. (6) Obesity, morbid, BMI 50 or higher Conclusion/Plan: Her BMI is approximately 64. We discussed the importance of weight loss and should benefit from outpatient dietitian consult. (7) Restless leg syndrome Conclusion/Plan: Stable. Continue her home medications. - Lab Results Lab results reviewed: Yes Fish Bones: 10/10/19 17:06 10/10/19 17:06 - Diagnostic Imaging Results Diagnostic Imaging Results: positive: Final report reviewed Core Measures - Anticipated LOS I expect patient to be DC'd or transferred within 96 hours.: Yes - Issues Hospital Issues and Management Plan: 64-year-old female with prior history of pulmonary embolism on Xarelto presents with bright red blood per rectum. She will be placed in observation for trending of her hemoglobin. Will consider general surgery consult if she continues to have bleeding. - DVT/VTE - Prophylaxis VTE/DVT Device ordered at admit?: Yes VTE/DVT Prophylaxis med ordered at admit?: No
[2019-10-10 22:26] LABS: HGB - HEMOGLOBIN 11.4 g/dL (12.0-16.0)
[2019-10-11] MEDS: SODIUM CHLORIDE FLUSH 0.9% 10 ML SYRINGE IVP SCH ×2 (00:35→08:53)
[2019-10-11] MEDS: ACETAMINOPHEN 325 MG TABLET PO PRN ×2 (00:50→08:52)
[2019-10-11 05:27] LABS: BASOPHILS % (AUTO) 0.6 %; EOSINOPHILS # (AUTO) 0.3 10^3/uL (0.0-0.7); EOSINOPHILS % (AUTO) 5.2 %; HGB - HEMOGLOBIN 11.1 g/dL (12.0-16.0); LYMPHOCYTES # (AUTO) 2.2 10^3/uL (1.5-3.5); MEAN CORPUSCULAR HEMOGLOBIN 34.2 pg (27.0-31.0); MEAN CORPUSCULAR HGB CONC 31.2 g/dL (32.0-36.0); MEAN CORPUSCULAR VOLUME 109.5 fL (81.0-99.0); MEAN PLATELET VOLUME 9.5 fL (7.9-10.8); MONOCYTES # (AUTO) 0.7 10^3/uL (0.0-1.0); MONOCYTES % (AUTO) 11.3 %; NEUTROPHILS # (AUTO) 2.9 10^3/uL (1.5-6.6); NEUTROPHILS % (AUTO) 47.4 %; PLT - PLATELET COUNT 192 10^3/uL (130-450); RED BLOOD COUNT 3.25 10^6/uL (4.20-5.40); RED CELL DISTRIBUTION WIDTH 14.8 % (12.0-15.0); WHITE BLOOD COUNT 6.2 x10^3/uL (4.8-10.8)
[2019-10-11 05:40] LABS: CALCIUM 8.3 mg/dL (8.5-10.3); CREATININE 1.1 mg/dL (0.4-1.0); MAGNESIUM 2.2 mg/dL (1.7-2.8)
[2019-10-11 08:29] VITALS: BP 146/76
[2019-10-11] MEDS ORDERED: COD LIVER OIL/ZINC OXIDE 113 GM TUBE TOP PRN (09:11)
--- NOTE | 2019-10-11 10:53 | Discharge Plan ---
Discharge Plan Problem Reviewed?: Yes Disposition: Home, Self Care Condition: Stable Prescriptions: Cod Liver Oil/Zinc Oxide [Desitin] 113 gm TOP PRN PRN #1 tube PRN Reason: Skin Care Witch Suzanna/Glycerin [Tucks] 1 pad TOP PRN PRN #1 pkg PRN Reason: Perineal Repair Diet: Regular (Low calorie diet please) Activity Restrictions: Activity as Tolerated Shower Restrictions: No Instruction Topics: Hemorrhoids Self Care, Bleeding Rectal, Weight Manage Get Started Health Concerns: You were here in Observation status to monitor for anemia because of your rectal bleeding, which appears to be from bleeding hemorrhoids. You are being discharged with management with Tucks pads. You should see your PCP for further help managing this. Resume all your prehospital medications. Plan of Treatment: As above. Care Goals: Improvement in symptoms and stabilization are the goals. Assessment: Patient understands. Instructions were given to the patient. No Smoking: If you smoke, Please STOP! Call for help. Follow-up with: MAKI COLEY MD [Primary Care Provider] -
--- NOTE | 2019-10-11 11:06 | DISCHARGE SUMMARY ---
Discharge Summary Admit Date: 10/10/19 Discharge Date: 10/11/19 Discharging Provider: Dr Loraine Lopez Primary Care Provider: Tyrone Lugo Code Status: Attempt Resuscitation Condition at Discharge: Stable Discharge Disposition: 01 Home, Self Care - HPI History of Present Illness: From the admission H&P of Dr Girish Rojas: This is a pleasant 64-year-old female with a past medical history significant for hypertension, morbid obesity, renal cell carcinoma status post nephrectomy, psoriatic arthritis who presents today complaining of rectal bleeding for the past 6 days. She states her symptoms began 6 days ago when she noticed bright red blood per rectum when she would wipe. She also had associated abdominal pain predominantly in the right lower quadrant. No nausea or vomiting. She felt that the bleeding got worse today and that she is on Xarelto for history of pulmonary embolism so she was concerned and sought medical attention. She re ports no NSAID use or alcohol use. She reports a prior colonoscopy about 5 years ago which revealed polyps but was otherwise unremarkable. She reports her father did have colon cancer and was diagnosed at the age of 65. She reports no poor appetite, fever, chills, diarrhea, constipation. She does report lower extremity edema which has progressed over the past 2 weeks. She states it began she took a vacation for 1 month at [place]. She reports no dyspnea or chest pain. In the emergency department, she is found to be hemodynamically stable. Her hemoglobin was 12.2 which is slightly decreased compared to prior labs from 10 days ago when it was 13.1. Her INR was 1.0. Her platelets were 207. She underwent a CT of the abdomen pelvis without contrast which was unremarkable. Given her history of bleeding and the fact that she is on anticoagulation, the patient did not feel comfortable going home and so medicine was consulted for observation. I did discuss goals of care with the patient she would like to be a full code. - HOSPITAL COURSE Hospital Course: 1) Bleeding hemorrhoids CT of the abdomen and pelvis were unremarkable. We suspected her bleeding was secondary to diverticulosis or hemorrhoids. She was off anticoagulation overnight. Her blood pressure and heart rate were also stable. Given she is on long-term anticoagulation for her history of pulmonary embolism, we observed her overnight and monitored her hemoglobin. Her hemoglobin was relatively stable at 12.2>> 11.4>> 11.1. The next morning, she had bright red on the toilet paper after a BM, and the RN saw a hemorrhoid, there was no further evidence of bleeding She would benefit from an outpatient colonoscopy given her family history of colon cancer. (2) Anticoagulant long-term use She is on Xarelto for history of pulmonary embolism. Given her BMI is 64.8, ideally she would be on Lovenox or Coumadin, since NOAC's were not studied in these morbidly obese patients. This was discussed with the patient and will defer to her outpatient provider to discuss possible alternative regimens or even discontinuing anticoagulation. (3) History of pulmonary embolism She reports having a pulmonary embolism about 1 year ago when she was diagnosed with her renal cell carcinoma. She was on Lovenox which was discontinued due to infections and localized hematomas at the site of injection. She has been on Xarelto since then. 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 (4) History of renal cell carcinoma She is status post nephrectomy. She was continued on her home medications. (5) Psoriatic arthritis We continued her home medications. (6) Obesity, morbid, BMI 50 or higher Her BMI is greater than 64. We discussed the importance of weight loss and she would benefit from outpatient dietitian consult. (7) Restless leg syndrome We continued her home medications. - ALLERGIES Allergies/Adverse Reactions: Allergies Allergy/AdvReac Type Severity Reaction Status Date / Time iodine Allergy Severe Nausea Verified 09/30/19 06:04 Latex, Natural Rubber Allergy Unknown Verified 09/30/19 06:04 bee stings Allergy Severe Anaphylaxis Uncoded 09/30/19 06:04 paper tape Allergy Intermediate Hives Uncoded 09/30/19 06:04 - MEDICATIONS Home Medications: Ambulatory Orders Medication Instructions Recorded Confirmed Prazosin HCl 4 mg PO QPM 09/02/13 08/16/18 Albuterol Sulfate [Proair Hfa 2 puffs INH Q4H PRN 02/11/18 08/16/18 Inhaler] Ipratropium/Albuterol Sulfate 3 ml INH QID PRN 02/11/18 08/16/18 [Iprat-Albut 0.5-3(2.5) mg/3 ml] Cyclobenzaprine [Flexeril] 10 mg PO TID PRN #20 tablet 04/17/18 08/16/18 Oxycodone HCl/Acetaminophen 1 each PO Q6H PRN #20 tablet 08/14/18 08/16/18 [Percocet 7.5-325 mg Tablet] Amlodipine Besylate 10 mg PO DAILY 09/30/19 Apremilast [Otezla] 30 mg PO BID 09/30/19 Cabozantinib S-Malate [Cabometyx] 20 mg PO 09/30/19 Hydrocodone/Acetaminophen 1 - 2 each PO Q6HR PRN #14 tablet 09/30/19 [Hydrocodone-Acetamin 5-325 mg] Lansoprazole 30 mg PO DAILY 09/30/19 Meloxicam 15 mg PO DAILY 09/30/19 Minocycline HCl 100 mg PO BID 09/30/19 Pramipexole [Mirapex] 0.25 mg PO QPM 09/30/19 Sennosides [Senna] 8.6 mg PO 09/30/19 Cod Liver Oil/Zinc Oxide [Desitin] 113 gm TOP PRN PRN #1 tube 10/11/19 Rivaroxaban [Xarelto] 20 mg PO DAILYWM 10/11/19 Witch Suzanna/Glycerin [Tucks] 1 pad TOP PRN PRN #1 pkg 10/11/19 - PHYSICAL EXAM AT DISCHARGE General Appearance: positive: No acute distress, Alert Eyes Bilateral: positive: Normal inspection, EOMI ENT: positive: ENT inspection nml, No signs of dehydration Neck: positive: Nml inspection Respiratory: positive: No respiratory distress Cardiovascular: positive: Regular rate & rhythm Abdomen: positive: Other (Obese with a large pannus) Skin: positive: Color nml Extremities: positive: Non-tender, No pedal edema Neurologic/Psychiatric: positive: Oriented x3, Other (Non-focal) - LABS Result Diagrams: 10/11/19 04:40 10/11/19 04:40 - DIAGNOSTIC IMAGING Diagnostic Imaging Results: Final report reviewed - FOLLOW UP Follow Up: See PCP in routine follow-up. - TIME SPENT Time Spent in Discharge (Minutes): 20
== END 2019-10-11 12:10 | disposition home or self-care (01) ==
LOC: ED 16:38 → MS2 20:01
PROVIDERS: ADMIT Internal Medicine; ATTEND Internal Medicine
DX: K64.9 Unspecified hemorrhoids (principal); I10 Essential (primary) hypertension; E66.01 Morbid (severe) obesity due to excess calories; L40.50 Arthropathic psoriasis, unspecified; L40.9 Psoriasis, unspecified; G25.81 Restless legs syndrome; Z68.44 Body mass index [BMI] 60.0-69.9, adult; Z79.01 Long term (current) use of anticoagulants; Z79.899 Other long term (current) drug therapy; Z80.0 Family history of malignant neoplasm of digestive organs; Z85.528 Personal history of other malignant neoplasm of kidney; Z86.010 Personal history of colon polyps; Z86.711 Personal history of pulmonary embolism; Z86.73 Personal history of transient ischemic attack (TIA), and cerebral infarction without residual deficits; Z87.891 Personal history of nicotine dependence; Z90.49 Acquired absence of other specified parts of digestive tract; Z90.5 Acquired absence of kidney; Z90.710 Acquired absence of both cervix and uterus
CPT/HCPCS: 36415; 74176; 80048; 80053; 83690; 83735; 83880; 84100; 85014; 85018; 85025; 85610; 86850; 86900; 86901; 96374; 96376; 99285; A9270

== ENCOUNTER 2019-11-18 18:22 | Outpatient (CLI) | payer MEDICAID | END 2019-11-18 18:23 | disposition home or self-care (01) | LOC: COV 18:22 | PROVIDERS: ATTEND Family Medicine | DX: Z20.828 Contact with and (suspected) exposure to other viral communicable diseases (principal) ==

== ENCOUNTER 2020-01-25 13:32 | Outpatient (CLI) | payer MEDICAID ==
[2020-01-25 17:54] LABS: BASOPHILS % (AUTO) 0.8 %; EOSINOPHILS # (AUTO) 0.1 10^3/uL (0.0-0.7); EOSINOPHILS % (AUTO) 2.8 %; HGB - HEMOGLOBIN 12.1 g/dL (12.0-16.0); LYMPHOCYTES # (AUTO) 1.7 10^3/uL (1.5-3.5); LYMPHOCYTES % (AUTO) 34.8 %; MEAN CORPUSCULAR HEMOGLOBIN 35.1 pg (27.0-31.0); MEAN CORPUSCULAR HGB CONC 31.5 g/dL (32.0-36.0); MEAN CORPUSCULAR VOLUME 111.3 fL (81.0-99.0); MEAN PLATELET VOLUME 10.6 fL (7.9-10.8); MONOCYTES # (AUTO) 0.5 10^3/uL (0.0-1.0); MONOCYTES % (AUTO) 10.2 %; NEUTROPHILS # (AUTO) 2.5 10^3/uL (1.5-6.6); NEUTROPHILS % (AUTO) 51.2 %; PLT - PLATELET COUNT 199 10^3/uL (130-450); RED BLOOD COUNT 3.45 10^6/uL (4.20-5.40); RED CELL DISTRIBUTION WIDTH 14.6 % (12.0-15.0); WHITE BLOOD COUNT 4.9 x10^3/uL (4.8-10.8)
[2020-01-25 19:14] LABS: PLATELET ESTIMATE, MANUAL NORMAL (130-450,000) (NORMAL); PLATELET MORPHOLOGY NORMAL APPEARANCE (NORMAL)
== END 2020-01-25 23:59 | disposition home or self-care (01) ==
LOC: LAB.WCP 13:32
PROVIDERS: ATTEND Family Medicine
DX: K92.2 Gastrointestinal hemorrhage, unspecified (principal)
CPT/HCPCS: 36415; 85025

== ENCOUNTER 2020-02-22 08:00 | Outpatient (CLI) | payer MEDICAID ==
[2020-02-22 18:26] LABS: BASOPHILS % (AUTO) 0.3 %; EOSINOPHILS # (AUTO) 0.2 10^3/uL (0.0-0.7); EOSINOPHILS % (AUTO) 2.4 %; HGB - HEMOGLOBIN 12.6 g/dL (12.0-16.0); LYMPHOCYTES # (AUTO) 1.6 10^3/uL (1.5-3.5); LYMPHOCYTES % (AUTO) 24.3 %; MEAN CORPUSCULAR HEMOGLOBIN 34.9 pg (27.0-31.0); MEAN CORPUSCULAR HGB CONC 32.1 g/dL (32.0-36.0); MEAN CORPUSCULAR VOLUME 108.6 fL (81.0-99.0); MEAN PLATELET VOLUME 10.6 fL (7.9-10.8); MONOCYTES # (AUTO) 0.6 10^3/uL (0.0-1.0); MONOCYTES % (AUTO) 8.3 %; NEUTROPHILS # (AUTO) 4.3 10^3/uL (1.5-6.6); NEUTROPHILS % (AUTO) 64.5 %; PLT - PLATELET COUNT 204 10^3/uL (130-450); RED BLOOD COUNT 3.61 10^6/uL (4.20-5.40); RED CELL DISTRIBUTION WIDTH 13.5 % (12.0-15.0); WHITE BLOOD COUNT 6.6 x10^3/uL (4.8-10.8)
[2020-02-22 18:39] LABS: ALBUMIN 3.2 g/dL (3.2-5.5); ALBUMIN/GLOBULIN RATIO 1.1 (1.0-2.2); BILIRUBIN,TOTAL 0.5 mg/dL (0.2-1.0); CALCIUM 9.1 mg/dL (8.5-10.3); CREATININE 1.1 mg/dL (0.4-1.0); TOTAL PROTEIN 6.2 g/dL (6.7-8.2)
== END 2020-02-22 23:59 | disposition home or self-care (01) ==
LOC: LAB.WCP 08:00
PROVIDERS: ATTEND Family Medicine
DX: K92.2 Gastrointestinal hemorrhage, unspecified (principal)
CPT/HCPCS: 36415; 80053; 85025

== ENCOUNTER 2020-03-09 08:00 | Outpatient (CLI) | payer MEDICAID ==
[2020-03-09 17:52] LABS: BASOPHILS % (AUTO) 0.6 %; EOSINOPHILS # (AUTO) 0.2 10^3/uL (0.0-0.7); EOSINOPHILS % (AUTO) 3.1 %; HGB - HEMOGLOBIN 12.5 g/dL (12.0-16.0); LYMPHOCYTES # (AUTO) 1.7 10^3/uL (1.5-3.5); LYMPHOCYTES % (AUTO) 33.5 %; MEAN CORPUSCULAR HEMOGLOBIN 33.8 pg (27.0-31.0); MEAN CORPUSCULAR HGB CONC 30.5 g/dL (32.0-36.0); MEAN CORPUSCULAR VOLUME 110.8 fL (81.0-99.0); MEAN PLATELET VOLUME 10.3 fL (7.9-10.8); MONOCYTES # (AUTO) 0.5 10^3/uL (0.0-1.0); MONOCYTES % (AUTO) 9.4 %; NEUTROPHILS # (AUTO) 2.7 10^3/uL (1.5-6.6); NEUTROPHILS % (AUTO) 53.2 %; PLT - PLATELET COUNT 223 10^3/uL (130-450); RED CELL DISTRIBUTION WIDTH 13.8 % (12.0-15.0); WHITE BLOOD COUNT 5.1 x10^3/uL (4.8-10.8)
[2020-03-09 18:19] LABS: ALBUMIN 3.3 g/dL (3.2-5.5); ALBUMIN/GLOBULIN RATIO 1.1 (1.0-2.2); ALKALINE PHOSPHATASE 46 IU/L (42-121); ALT ALANINE AMINOTRANSFERASE 25 IU/L (10-60); AST ASPARTATE AMINOTRANSFERASE 25 IU/L (10-42); BILIRUBIN,TOTAL 0.6 mg/dL (0.2-1.0); BUN - BLOOD UREA NITROGEN 17 mg/dL (6-20); CALCIUM 8.8 mg/dL (8.5-10.3); CARBON DIOXIDE - CO2 28 mmol/L (21-32); CHLORIDE 110 mmol/L (101-111); CHOL/HDL RATIO 6.8 (<4.4); CHOLESTEROL 319 mg/dL; CREATININE 1.1 mg/dL (0.4-1.0); GLUCOSE 84 mg/dL (70-100); HDL CHOLESTEROL 47 mg/dL; LDL CHOLESTEROL,CALCULATED 238 mg/dL; LDL/HDL RATIO 5.1 (<4.4); SODIUM 146 mmol/L (135-145); TOTAL PROTEIN 6.2 g/dL (6.7-8.2); VLDL CHOLESTEROL 34 mg/dL
[2020-03-09 18:42] LABS: PLATELET ESTIMATE, MANUAL NORMAL (130-450,000) (NORMAL); PLATELET MORPHOLOGY NORMAL APPEARANCE (NORMAL); RBC MORPHOLOGY (MULTIPLE) 1+ MACROCYTOSIS (NORMAL)
[2020-03-09 19:14] LABS: FREE T4 (FREE THYROXINE) 1.05 ng/dL (0.58-1.64)
[2020-03-09 20:45] LABS: HEMOGLOBIN A1c% 5.4 % (4.27-6.07)
== END 2020-03-09 23:59 ==
LOC: LAB.WCP 08:00
PROVIDERS: ATTEND Internal Medicine
DX: N18.9 Chronic kidney disease, unspecified (principal)
CPT/HCPCS: 36415; 80053; 80061; 82043; 82570; 83036; 83721; 84439; 84443; 85025

== ENCOUNTER 2020-03-10 08:00 | Outpatient (CLI) | payer MEDICAID ==
[2020-03-10 20:00] LABS: CREATININE,URINE 233.7 mg/dL; MICROALBUMIN,URINE 383.5 mg/dL (0-300.0)
== END 2020-03-10 23:59 | disposition home or self-care (01) ==
LOC: LAB.R 08:00
PROVIDERS: ATTEND Internal Medicine
DX: N18.9 Chronic kidney disease, unspecified (principal)
CPT/HCPCS: 82043; 82570

== ENCOUNTER 2020-03-11 14:21 | Emergency (ER) | payer MEDICAID ==
--- NOTE | 2020-03-11 15:16 | ED Physician Documentation ---
PD HPI FOCAL NEURO - Stated complaint Stated Complaint: LFT SIDE FACE NUMB - Chief complaint Chief Complaint: General - History obtained from History obtained from: Patient - History of Present Illness Timing - onset: How many days ago (4) Timing - duration: Days (4) Timing - details: Gradual onset, Still present, Waxing and waning Severity of deficit: Mild Weakness: Face, Right (wax and wane for 4 days. Feeling like eye not focusing and eyelid not closing strongly. Able to chew and swallow okay.) Numbness: Arm, Right (at times, seems positional when using arm.). No: Face, Leg Associated symptoms: Headache (some pain around right ear and in front of it extending to behind right ear.). No: Nausea / vomiting Contributing factors: positive: Anticoagulated Baseline status: positive: A&OX3, ambulatory, indep Similar symptoms before: Has not had sx before Recently seen: Not recently seen Review of Systems Constitutional: denies: Fever, Chills Eyes: denies: Photophobia Nose: denies: Rhinorrhea / runny nose, Congestion Throat: denies: Sore throat, Swallowed foreign body Cardiac: denies: Chest pain / pressure, Palpitations Respiratory: reports: Dyspnea (with activity). denies: Cough GI: denies: Abdominal Pain, Nausea, Vomiting, Diarrhea Musculoskeletal: reports: Extremity swelling (has noted swelling of both lower legs slowly progressing for days to week.) Neurologic: denies: Focal weakness, Numbness Endocrine: reports: Easy bruising / bleeding (has noted large bruise medial right thigh with local firmness. Some tender left thigh as well. No noted injury.) PD PAST MEDICAL HISTORY - Past Medical History Cardiovascular: Hypertension, Pulmonary embolism Respiratory: Asthma, COPD Neuro: CVA Endocrine/Autoimmune: None GI: GERD, Colon polyps TRAFFIC ADMINISTRATOR: None : Other (Renal cell carcinoma.) HEENT: None Psych: Depression Musculoskeletal: Osteoarthritis Derm: Psoriasis - Past Surgical History Past Surgical History: Yes General: Cholecystectomy, Hiatal hernia repair Ortho: Carpal Tunnel surgery /TRAFFIC ADMINISTRATOR: Hysterectomy, Other (Nephrectomy.) HEENT: Tonsil/Adenoidectomy - Present Medications Home Medications: Ambulatory Orders Medication Instructions Recorded Confirmed Prazosin HCl 4 mg PO QPM 09/02/13 08/16/18 Albuterol Sulfate [Proair Hfa 2 puffs INH Q4H PRN 02/11/18 08/16/18 Inhaler] Ipratropium/Albuterol Sulfate 3 ml INH QID PRN 02/11/18 08/16/18 [Iprat-Albut 0.5-3(2.5) mg/3 ml] Cyclobenzaprine [Flexeril] 10 mg PO TID PRN #20 tablet 04/17/18 08/16/18 Oxycodone HCl/Acetaminophen 1 each PO Q6H PRN #20 tablet 08/14/18 08/16/18 [Percocet 7.5-325 mg Tablet] Amlodipine Besylate 10 mg PO DAILY 09/30/19 Apremilast [Otezla] 30 mg PO BID 09/30/19 Cabozantinib S-Malate [Cabometyx] 20 mg PO 09/30/19 Hydrocodone/Acetaminophen 1 - 2 each PO Q6HR PRN #14 tablet 09/30/19 [Hydrocodone-Acetamin 5-325 mg] Lansoprazole 30 mg PO DAILY 09/30/19 Meloxicam 15 mg PO DAILY 09/30/19 Minocycline HCl 100 mg PO BID 09/30/19 Pramipexole [Mirapex] 0.25 mg PO QPM 09/30/19 Cod Liver Oil/Zinc Oxide [Desitin] 113 gm TOP PRN PRN #1 tube 10/11/19 Rivaroxaban [Xarelto] 20 mg PO DAILYWM 10/11/19 Witch Suzanna/Glycerin [Tucks] 1 pad TOP PRN PRN #1 pkg 10/11/19 Furosemide [Lasix] 20 mg PO DAILY #10 tablet 03/11/20 HYDROcod/ACETAM 5/325 [Bison 5/325] 1 - 2 tab PO Q6H PRN #15 tablet 03/11/20 Nystatin [Nystop] 1 applic TOP BID #3 bottle 03/11/20 Potassium Chloride 10 meq PO DAILY #10 tablet.er 03/11/20 Valacyclovir HCl [Valtrex] 1,000 mg PO TID #30 tablet 03/11/20 predniSONE [Deltasone] 20 mg PO [id number] #21 tab 03/11/20 - Allergies Allergies/Adverse Reactions: Allergies Allergy/AdvReac Type Severity Reaction Status Date / Time iodine Allergy Severe Nausea Verified 12/19/20 17:14 enoxaparin [From Lovenox] Allergy Edema Verified 03/11/20 17:14 Latex, Natural Rubber Allergy Unknown Verified 03/11/20 17:14 bee stings Allergy Severe Anaphylaxis Uncoded 03/11/20 17:14 paper tape Allergy Intermediate Hives Uncoded 03/11/20 17:14 - Social History Does the pt smoke?: No Smoking Status: Former smoker Does the pt drink ETOH?: Yes Does the pt have substance abuse?: No - Immunizations Immunizations are current?: Yes Immunizations: TDAP >10years/unknown - POLST Patient has POLST: Yes POLST Status: Full Code PD ED PE NORMAL - Vitals Vital signs reviewed: Yes - General General: Alert and oriented X 3, No acute distress, Well developed/nourished - HEENT HEENT: PERRL, EOMI, Ears normal, Moist mucous membranes, Pharynx benign - Neck Neck: Supple, no meningeal sign, No adenopathy - Cardiac Cardiac: RRR, No murmur - Respiratory Respiratory: Clear bilaterally - Abdomen Abdomen: Soft, Non tender, Other (morbidly obese) - Derm Derm: Normal color, Warm and dry - Extremities Extremities: Other (1+ edema in both lower legs and ankles. there is some bruising with firmness right medial thigh. Tender left medial thighh without bruising. Normal color and cap refill in toes. ) - Neuro Neuro: No motor deficit, No sensory deficit, Other (right face with faint weakness for smile, eye closing and eyebrow raising. there is some tenderness to touch right face lateral forehead and preauricular area. ) NIHSS - Level of Consciousness Level of consciousness: (0) Alert, Keenly responsive LOC Questions: (0) Answers both Q's correct LOC Commands: (0) Performs both correctly - Gaze Best Gaze: (0) Normal - Visual Visual: (0) No loss - Facial Palsy Facial Palsy: (1) Minor paralysis (including forehead though) - Motor Arms (both separate) Motor Arm (right): (0) No drift Motor Arm (left): (0) No drift - Motor Legs (both separate) Motor Leg (right): (0) No drift Motor Leg (left): (0) No drift - Limb Ataxia Limb Ataxia: (0) Absent - Sensory Sensory: (0) Normal - Best Language Best Language: (0) No aphasia - Dysarthria Dysarthria: (0) Normal - Extinction and Inattention (formally neg Extinction and inattention: (0) No abnormality - Total Score/Results Total Score/Result: 1 Results - Vitals Vitals: Vital Signs - 24 hr 03/11/20 03/11/20 03/11/20 14:27 18:33 19:47 Temperature 36.7 C Heart Rate 78 77 77 Respiratory 20 20 18 Rate Blood Pressure 140/89 H 133/91 H 160/115 H O2 Saturation 100 95 100 Oxygen O2 Source Room air - Labs Labs: Laboratory Tests 03/11/20 03/11/20 03/11/20 16:00 16:00 16:00 WBC 5.8 RBC 3.64 L Hgb 12.6 Hct 40.4 MCV 111.0 H MCH 34.6 H MCHC 31.2 L RDW 14.0 Plt Count 212 MPV 9.9 Neut # (Auto) 2.6 Lymph # (Auto) 2.3 [place] # (Auto) 0.5 Eos # (Auto) 0.3 Baso # (Auto) 0.0 Absolute Nucleated RBC 0.00 Nucleated RBC % 0.0 Platelet Estimate NORMAL (130-450,000) Platelet Morphology NORMAL APPEARANCE RBC Morph Micro Appear 1+ MACROCYTOSIS PT INR APTT Sodium Potassium Chloride Carbon Dioxide Anion Gap BUN Creatinine Estimated GFR (MDRD) Glucose Calcium Magnesium Total Bilirubin AST ALT Alkaline Phosphatase Troponin I High Sens 6.9 B-Natriuretic Peptide 39 Total Protein Albumin Globulin Albumin/Globulin Ratio 03/11/20 03/11/20 16:00 16:00 WBC RBC Hgb Hct MCV MCH MCHC RDW Plt Count MPV Neut # (Auto) Lymph # (Auto) [place] # (Auto) Eos # (Auto) Baso # (Auto) Absolute Nucleated RBC Nucleated RBC % Platelet Estimate Platelet Morphology RBC Morph Micro Appear PT 13.0 H INR 1.2 APTT 36.1 H Sodium 143 Potassium 4.5 Chloride 112 H Carbon Dioxide 25 Anion Gap 6.0 BUN 19 Creatinine 1.0 Estimated GFR (MDRD) 56 L Glucose 90 Calcium 8.5 Magnesium 2.0 Total Bilirubin < 0.2 L AST 24 ALT 24 Alkaline Phosphatase 55 Troponin I High Sens B-Natriuretic Peptide Total Protein 6.2 L Albumin 3.2 Globulin 3.0 Albumin/Globulin Ratio 1.1 - Rads (name of study) head CT Radiology: Prelim report reviewed (no ICH), See rad report chest xray Radiology: Prelim report reviewed (some vascular congestion c/w heart failure. No infiltrates.), See rad report duplex legs Radiology: Prelim report reviewed (no DVT.), See rad report PD MEDICAL DECISION MAKING - ED course Complexity details: reviewed results, considered differential (varied complaints. Leg swelling and thigh bruising without injury. Can check platelet count. On anticoagulants. Also leg swelling and dyspnea, so consider CHF in relationship to recent PE. May need some diuretic and further eval outpt with ECHO. Face with gradual mild weakness and sensitivity.), d/w patient ED course: face: consider [place] or with the tenderness, also consider developing shingles. Departure - Departure Disposition: 01 Home, Self Care Clinical Impression: Weakness on right side of face, Bilateral leg edema, Multiple ecchymoses of thigh, Anticoagulant long-term use Condition: Stable Record reviewed to determine appropriate education?: Yes Instructions: ED Dyspnea Shortness of Breath, ED Edema Legs Bilateral Follow-Up: Guido Lane MD [Primary Care Provider] - Prescriptions: predniSONE [Deltasone] 20 mg PO [id number] #21 tab Furosemide [Lasix] 20 mg PO DAILY #10 tablet HYDROcod/ACETAM 5/325 [Bison 5/325] 1 - 2 tab PO Q6H PRN #15 tablet PRN Reason: Pain Nystatin [Nystop] 1 applic TOP BID #3 bottle Potassium Chloride 10 meq PO DAILY #10 tablet.er Valacyclovir HCl [Valtrex] 1,000 mg PO TID #30 tablet Comments: Head CT does not show any signs of bleeding swelling or masses. Your facial symptoms I think likely either relate to an irritation of the nerve to the face idiopathically called early Art's palsy. Alternatively it may be developing a viral inflammation of the nerve. Consider early shingles developing. Both of these would be treated with a steroid and an antiviral medicine so I am prescribing these for you. Your swelling in the legs as well as some of the trouble breathing I think are fluid retention. We can add a diuretic to your medication in the short-term. Follow-up with your primary care and they may want to further assess your heart function with an ultrasound of the heart called an echocardiogram. There could be some strain on the heart related to your recent blood clots. Otherwise continue your current usual medicines. Add hydrocodone pain medicine if needed in the short-term. Follow-up with your primary care this coming week, month call Friday for an appointment. Discharge Date/Time: 03/11/20 19:47
[2020-03-11] MEDS ORDERED: FUROSEMIDE 40 MG/4 ML VIAL IVP STA (15:49)
[2020-03-11] MEDS ORDERED: HYDROmorphone 1 MG/ML CARPUJECT IVP STA ×2 (15:50→17:43)
[2020-03-11 16:09] LABS: BASOPHILS % (AUTO) 0.5 %; EOSINOPHILS # (AUTO) 0.3 10^3/uL (0.0-0.7); HGB - HEMOGLOBIN 12.6 g/dL (12.0-16.0); LYMPHOCYTES # (AUTO) 2.3 10^3/uL (1.5-3.5); LYMPHOCYTES % (AUTO) 39.6 %; MEAN CORPUSCULAR HEMOGLOBIN 34.6 pg (27.0-31.0); MEAN CORPUSCULAR HGB CONC 31.2 g/dL (32.0-36.0); MEAN PLATELET VOLUME 9.9 fL (7.9-10.8); MONOCYTES # (AUTO) 0.5 10^3/uL (0.0-1.0); MONOCYTES % (AUTO) 9.1 %; NEUTROPHILS # (AUTO) 2.6 10^3/uL (1.5-6.6); NEUTROPHILS % (AUTO) 45.5 %; PLT - PLATELET COUNT 212 10^3/uL (130-450); RED BLOOD COUNT 3.64 10^6/uL (4.20-5.40); WHITE BLOOD COUNT 5.8 x10^3/uL (4.8-10.8)
[2020-03-11 16:15] LABS: INR 1.2 (0.8-1.2)
[2020-03-11 16:22] LABS: ALBUMIN 3.2 g/dL (3.2-5.5); ALBUMIN/GLOBULIN RATIO 1.1 (1.0-2.2); ALKALINE PHOSPHATASE 55 IU/L (42-121); ALT ALANINE AMINOTRANSFERASE 24 IU/L (10-60); AST ASPARTATE AMINOTRANSFERASE 24 IU/L (10-42); BILIRUBIN,TOTAL < 0.2 mg/dL (0.2-1.0); BUN - BLOOD UREA NITROGEN 19 mg/dL (6-20); CALCIUM 8.5 mg/dL (8.5-10.3); CARBON DIOXIDE - CO2 25 mmol/L (21-32); CHLORIDE 112 mmol/L (101-111); GLUCOSE 90 mg/dL (70-100); PARTIAL THROMBOPLASTIN TIME 36.1 secs (24.9-33.3); SODIUM 143 mmol/L (135-145); TOTAL PROTEIN 6.2 g/dL (6.7-8.2)
[2020-03-11 16:36] LABS: PLATELET ESTIMATE, MANUAL NORMAL (130-450,000) (NORMAL); PLATELET MORPHOLOGY NORMAL APPEARANCE (NORMAL); RBC MORPHOLOGY (MULTIPLE) 1+ MACROCYTOSIS (NORMAL)
--- NOTE | 2020-03-11 17:16 | XRAY Report ---
PROCEDURE: Chest 1 View X-Ray INDICATIONS: chest pain TECHNIQUE: One view of the chest was acquired. COMPARISON: CXR 09/30/2019. FINDINGS: Surgical changes and devices: None. Lungs and pleura: No pleural effusion identified. No pneumothorax. Lungs are clear. Pulmonary vascul ature engorgement. Suspect Magi B line's. Mediastinum: Mediastinal contours appear normal. Heart size appears prominent. Bones and chest wall: No suspicious bony lesions. Overlying soft tissues appear unremarkable. IMPRESSION: Suspect mild fluid overload/CHF. Heart size appears prominent. Reviewed by: Arnel Portillo MD on 03/11/2020 4:15 PM [facility] Approved by: Arnel Portillo MD on 03/11/2020 4:15 PM [facility] Station ID: [id number]
--- NOTE | 2020-03-11 17:19 | CT Report ---
PROCEDURE: HEAD WO INDICATIONS: right facial weakness; on Xarelto. Right facial weakness and swelling for 3 days. TECHNIQUE: Noncontrast 4.5 mm thick angled axial sections acquired from the foramen magnum to the vertex. For r adiation dose reduction, the following was used: automated exposure control, adjustment of mA and/or kV according to patient size. COMPARISON: Head CT and CTA 09/30/2019. FINDINGS: Image quality: Excellent. CSF spaces: Basal cisterns are patent. No extra-axial fluid collections. Ventricles are normal in size and shape. Brain: No midline shift. Punctate basal ganglia calcifications, unchanged. No intracranial masses o r hemorrhage. No large area of hypodensity in a vascular diffusion to suggest acute infarction. Suspe ct periventricular hypodensity consistent with chronic microvascular ischemic disease. Skull and face: Calvarium and visualized facial bones are intact, without suspicious lesions. Sinuses: Visualized sinuses and mastoids are clear. IMPRESSION: No acute intracranial abnormality. Reviewed by: Arnel Portillo MD on 03/11/2020 4:18 PM [facility] Approved by: Arnel Portillo MD on 03/11/2020 4:18 PM [facility] Station ID: [id number]
[2020-03-11] MEDS ORDERED: valACYclovir 500 MG TABLET PO STA (17:38)
[2020-03-11] MEDS ORDERED: CHERRY SYRUP 10 ML UDC PO ONE (17:38)
[2020-03-11] MEDS ORDERED: DEXAMETHASONE 10 MG/ML VIAL PO STA (17:38)
--- NOTE | 2020-03-11 19:21 | ED Physician Documentation ---
ED Addendum - Addendum Addendum: 03/11/20 19:21 She was signed out to me by Dr. Escobedo at shift change. Briefly 64-year-old woman whose main complaint was numbness on the face, most consistent either with a very early Art's palsy or early shingles since she has some burning pain there. Head CT was negative. On signout she was pending a bilateral lower extremity ultrasound and the tech reported it was negative. She is being treated for Art's palsy/early shingles with valacyclovir and prednisone taper. The ultrasound did have bilateral Bowling's cyst.
--- NOTE | 2020-03-11 19:39 | Ultrasound Report ---
PROCEDURE: Duplex Ext Veins Bilateral INDICATIONS: Abebe Escobedo TECHNIQUE: Real-time imaging, as well as color and pulse Doppler interrogation, were performed of the deep veins of both legs from the inguinal ligament to the popliteal fossa. COMPARISON: None FINDINGS: The deep veins are normally compressible, and free of intraluminal thrombus. Color and pu lse Doppler demonstrate normal phasic intravascular flow. There is normal augmentation response to d istal compression maneuver. There is a popliteal fluid collection on the left measuring 3.3 x 1.1 x 1.3 cm consistent with a Bowling's cyst. There is a popliteal fluid collection on the right measuring 4 .2 x 2.8 x 1.6 cm consistent with a popliteal cyst. IMPRESSION: 1. No evidence of DVT in the lower extremities bilaterally. 2. Bilateral Bowling cysts. Reviewed by: Matheus Bentley on 03/11/2020 7:37 PM PST Approved by: Matheus Bentley on 03/11/2020 7:37 PM [facility] Station ID: [id number]
[2020-03-11 19:48] VITALS: BP 160/115
== END 2020-03-11 19:47 | disposition home or self-care (01) ==
LOC: ED 14:21
DX: R29.810 Facial weakness (principal); R60.0 Localized edema; R58 Hemorrhage, not elsewhere classified; Z79.01 Long term (current) use of anticoagulants; I10 Essential (primary) hypertension; Z87.891 Personal history of nicotine dependence; Z86.711 Personal history of pulmonary embolism; M71.22 Synovial cyst of popliteal space [Baker], left knee; M71.21 Synovial cyst of popliteal space [Baker], right knee
CPT/HCPCS: 36415; 70450; 71045; 80053; 83735; 83880; 84484; 85025; 85610; 85730; 93970; 96374; 96376; 99284; 99285; A9270; J1170

== ENCOUNTER 2020-03-28 10:16 | Outpatient (CLI) | payer MEDICAID | END 2020-03-28 10:17 | disposition home or self-care (01) | LOC: DI 10:16 | PROVIDERS: ATTEND Internal Medicine | DX: I51.7 Cardiomegaly (principal) | CPT/HCPCS: 93306 ==

== ENCOUNTER 2020-05-01 14:01 | Outpatient (CLI) | payer MEDICAID ==
--- NOTE | 2020-05-03 12:00 | Mammography Report ---
BILATERAL DIGITAL SCREENING MAMMOGRAM: 05/01/2020 CLINICAL: Routine screening. Comparison is made to exams dated: 08/22/2015 mammogram and 04/14/2012 mammogram - [facility]. There are scattered fibroglandular elements in both breasts. No significant masses, calcifications, or other findings are seen in either breast. There has been no significant interval change. IMPRESSION: NEGATIVE There is no mammographic evidence of malignancy. A 1 year screening mammogram is recommended. This exam was interpreted at Station ID: [id number]. NOTE: For mammograms, a report in lay terms will be sent to the patient. Approximately 15% of breast malignancies will not be visualized mammographically. In the management of a palpable breast mass, a negative mammogram must not discourage biopsy of a clinically suspicious lesion. Electronically Signed By: Jaxon Og M.D. aty/penrad:05/01/2020 17:40:37 ACR BI-RADS Category 1: Negative 3341F PARENCHYMAL PATTERN: (A) - The breast(s) demonstrate(s) scattered fibroglandular densities. BI-RADS CATEGORY: (1) - 1 RECOMMENDATION: (ANNUAL) - Recommend routine annual screening mammography. [id number] 1 year screening LATERALITY: (B)
== END 2020-05-01 14:02 | disposition home or self-care (01) ==
LOC: DI.N 14:01
PROVIDERS: ATTEND Internal Medicine
DX: Z12.31 Encounter for screening mammogram for malignant neoplasm of breast (principal)

== ENCOUNTER 2020-07-11 03:27 | Outpatient (CLI) | payer MEDICAID | END 2020-07-11 03:28 | disposition EMS.NT | LOC: EMS 03:27 | DX: M79.605 Pain in left leg (principal); M79.604 Pain in right leg; R20.8 Other disturbances of skin sensation ==

== ENCOUNTER 2020-07-11 04:19 | Emergency (ER) | payer MEDICAID ==
--- OUTSIDE RECORDS SUMMARY | 2020-07-11 04:24 | EXTERNAL MEDICAL SUMMARY RPT | Continuity of Care Document ---
: Demographics Phone Unavailable Preferred Language Nicaraguan Marital Status Unknown Jewish Affiliation Unknown Race Unknown Ethnic Group Unknown Author Organization [place] Address [address] [phone] Phone Care Team Providers Name Role Phone Guido Lane Unavailable Unavailable Fareed Sanderson Unavailable Unavailable Problems date description facility [id number] Malignant neoplasm of left kidney, [facility] renal pelvis [facility] [id number] Malignant neoplasm of left kidney, [facility] renal pelvis [facility] [id number] Malignant neoplasm of left kidney, [facility] Social History date description facility [id number]
--- OUTSIDE RECORDS SUMMARY | 2020-07-11 04:26 | EXTERNAL MEDICAL SUMMARY RPT | Continuity of Care Document ---
: Demographics Phone Unavailable Preferred Language Chinese Marital Status Unknown Gnosticist Affiliation Unknown Race Unknown Ethnic Group Unknown Author Organization [place] Address [address] [phone] Phone Care Team Providers Name Role Phone Fareed Sanderson Unavailable Unavailable Guido Lane Unavailable Unavailable Problems date description facility [id number] Malignant neoplasm of left kidney, [facility] [address] renal pelvis [facility] [id number] Malignant neoplasm of left kidney, [facility] [address] renal pelvis [facility] [id number] Malignant neoplasm of left kidney, [facility] Social History date description facility [phone]
--- NOTE | 2020-07-11 04:28 | ED Physician Documentation ---
History of Present Illness - Stated complaint Stated Complaint: R/L LEG PX, R HIP PX - History obtained from History obtained from: Patient - History of Present Illness Timing: How many days ago (2-3) Pain level max: 10 Pain level now: 10 Improved by: no ameliorating factors Worsened by: no exacerbating factors - Additonal information Additional information: c/o 2-3 days of gradually worsening bilateral lower extremity edema with BLE pain and paresthesias. Denies injury. She has had similar BLE swelling noted on previous visits (such as 03/11/20 ED visit). Review of Systems Constitutional: denies: Fever, Chills, Sweats Cardiac: reports: Pedal edema. denies: Palpitations Respiratory: denies: Dyspnea, Cough GI: denies: Abdominal Pain Skin: denies: Rash Neurologic: reports: Numbness (burning paresthesias BLE) PD PAST MEDICAL HISTORY - Past Medical History Cardiovascular: Hypertension, Pulmonary embolism Respiratory: Asthma, COPD Neuro: CVA Endocrine/Autoimmune: None GI: GERD, Colon polyps FINGER BUFFS ASSEMBLER: None : Other (Renal cell carcinoma.) HEENT: None Psych: Depression Musculoskeletal: Osteoarthritis Derm: Psoriasis - Past Surgical History Past Surgical History: Yes General: Cholecystectomy, Hiatal hernia repair Ortho: Carpal Tunnel surgery /FINGER BUFFS ASSEMBLER: Hysterectomy, Other (Nephrectomy.) HEENT: Tonsil/Adenoidectomy - Present Medications Home Medications: Ambulatory Orders Medication Instructions Recorded Confirmed Prazosin HCl 4 mg PO QPM 09/02/13 08/16/18 Albuterol Sulfate [Proair Hfa 2 puffs INH Q4H PRN 02/11/18 08/16/18 Inhaler] Cyclobenzaprine [Flexeril] 10 mg PO TID PRN #20 tablet 04/17/18 08/16/18 Amlodipine Besylate 5 mg PO DAILY 09/30/19 Cabozantinib S-Malate [Cabometyx] 20 mg PO 09/30/19 Lansoprazole 30 mg PO DAILY 09/30/19 Meloxicam 7.5 mg PO DAILY 09/30/19 Minocycline HCl 100 mg PO BID 09/30/19 Pramipexole [Mirapex] 0.25 mg PO QPM 09/30/19 Witch Suzanna/Glycerin [Tucks] 1 pad TOP PRN PRN #1 pkg 10/11/19 Furosemide [Lasix] 20 mg PO DAILY #10 tablet 03/11/20 HYDROcod/ACETAM 5/325 [Bowie 5/325] 1 - 2 tab PO Q6H PRN #15 tablet 03/11/20 Nystatin [Nystop] 1 applic TOP BID #3 bottle 03/11/20 Potassium Chloride 10 meq PO DAILY #10 tablet.er 03/11/20 Apremilast [Otezla] 30 mg PO BID 07/11/20 07/11/20 HYDROcod/ACETAM 5/325 [Bowie 5/325] 1 - 2 tablet PO Q6H PRN #14 tablet 07/11/20 Valacyclovir HCl [Valtrex] 1,000 mg PO TID PRN 07/11/20 - Allergies Allergies/Adverse Reactions: Allergies Allergy/AdvReac Type Severity Reaction Status Date / Time iodine Allergy Severe Nausea Verified 03/11/20 17:14 enoxaparin [From Lovenox] Allergy Edema Verified 03/11/20 17:14 Latex, Natural Rubber Allergy Unknown Verified 03/11/20 17:14 bee stings Allergy Severe Anaphylaxis Uncoded 03/11/20 17:14 paper tape Allergy Intermediate Hives Uncoded 03/11/20 17:14 - Social History Does the pt smoke?: No Smoking Status: Former smoker Does the pt drink ETOH?: Yes Does the pt have substance abuse?: No - Immunizations Immunizations are current?: Yes Immunizations: TDAP >10years/unknown - POLST Patient has POLST: Yes POLST Status: Full Code PD ED PE NORMAL - Vitals Vital signs reviewed: Yes - General General: Alert and oriented X 3, No acute distress, Well developed/nourished - Cardiac Cardiac: RRR, No murmur - Respiratory Respiratory: No respiratory distress, Clear bilaterally - Abdomen Abdomen: Soft, Non distended - Derm Derm: Warm and dry, Other (large confluent dark blue/purple discoloration right medial thigh (patient says this is chronic)) PD ED PE EXPANDED - Extremities Extremities: Pedal edema bilateral, Pedal Pulses Present, Other (toes with <2 sec cap refill, palpable DP pulses bilaterally. There is 3+ BLE edema. no erythema, no abnormal tactile temperature (not hot to touch)) Results - Vitals Vitals: Oxygen O2 Source Room air - Labs Labs: Laboratory Tests 07/11/20 07/11/20 05:16 05:16 WBC 5.5 RBC 3.69 L Hgb 12.5 Hct 39.9 MCV 108.1 H MCH 33.9 H MCHC 31.3 L RDW 13.6 Plt Count 179 MPV 9.8 Neut # (Auto) 3.3 Lymph # (Auto) 1.5 [place] # (Auto) 0.6 Eos # (Auto) 0.1 Baso # (Auto) 0.0 Absolute Nucleated RBC 0.00 Nucleated RBC % 0.0 Sodium 140 Potassium 3.8 Chloride 106 Carbon Dioxide 26 Anion Gap 8.0 BUN 23 H Creatinine 1.3 H Estimated GFR (MDRD) 42 L Glucose 114 H Calcium 8.9 PD MEDICAL DECISION MAKING - ED course Complexity details: reviewed old records, reviewed results, re-evaluated patient, considered differential, d/w patient ED course: no emergently concern lab results, with normal WBC and bun/creatinine that are slightly more elevated than baseline. Echo US performed 3 months ago showed 65- 70% EF but severe pulmonary hypertension. Will give one extra dose of lasix so as to effect some diuresis keeping in mind her kidney function tests being slightly worse than her baseline. Will rx vicodin for pain control. I emphasized to her that she needs to follow up with her PMD, call this morning to arrange for next available appointment Departure - Departure Disposition: 01 Home, Self Care Clinical Impression: Peripheral edema Condition: Good Instructions: ED Edema Legs Bilateral Follow-Up: Guido Lane MD [Primary Care Provider] - (Call this morning to arrange for next available appointment) Prescriptions: HYDROcod/ACETAM 5/325 [Bowie 5/325] 1 - 2 tablet PO Q6H PRN #14 tablet PRN Reason: Pain Comments: You were given a double-dose of lasix this morning (40mg) in the emergency department. Do not take any more lasix today, but resume your normal (20mg) dose starting tomorrow. Discharge Date/Time: 07/11/20 06:16
[2020-07-11] MEDS ORDERED: HYDROcod/ACETAM 5/325 MG TABLET PO STA (04:49)
[2020-07-11 05:18] LABS: BASOPHILS % (AUTO) 0.4 %; EOSINOPHILS # (AUTO) 0.1 10^3/uL (0.0-0.7); EOSINOPHILS % (AUTO) 2.5 %; HCT - HEMATOCRIT 39.9 % (37.0-47.0); HGB - HEMOGLOBIN 12.5 g/dL (12.0-16.0); LYMPHOCYTES # (AUTO) 1.5 10^3/uL (1.5-3.5); LYMPHOCYTES % (AUTO) 26.4 %; MEAN CORPUSCULAR HEMOGLOBIN 33.9 pg (27.0-31.0); MEAN CORPUSCULAR HGB CONC 31.3 g/dL (32.0-36.0); MEAN CORPUSCULAR VOLUME 108.1 fL (81.0-99.0); MEAN PLATELET VOLUME 9.8 fL (7.9-10.8); MONOCYTES # (AUTO) 0.6 10^3/uL (0.0-1.0); MONOCYTES % (AUTO) 10.5 %; NEUTROPHILS # (AUTO) 3.3 10^3/uL (1.5-6.6); PLT - PLATELET COUNT 179 10^3/uL (130-450); RED BLOOD COUNT 3.69 10^6/uL (4.20-5.40); RED CELL DISTRIBUTION WIDTH 13.6 % (12.0-15.0); WHITE BLOOD COUNT 5.5 x10^3/uL (4.8-10.8)
[2020-07-11 05:27] LABS: CALCIUM 8.9 mg/dL (8.5-10.3); CREATININE 1.3 mg/dL (0.4-1.0); POTASSIUM 3.8 mmol/L (3.5-5.0)
[2020-07-11] MEDS ORDERED: FUROSEMIDE 20 MG TABLET PO STA (05:59)
[2020-07-11 06:09] VITALS: BP 138/85
== END 2020-07-11 06:16 | disposition home or self-care (01) ==
LOC: ED 04:19
DX: R60.0 Localized edema (principal); I27.20 Pulmonary hypertension, unspecified; I10 Essential (primary) hypertension; J44.9 Chronic obstructive pulmonary disease, unspecified; Z86.711 Personal history of pulmonary embolism; Z87.891 Personal history of nicotine dependence
CPT/HCPCS: 36415; 80048; 85025; 99283; 99284; A9270

== ENCOUNTER 2020-10-13 02:21 | Outpatient (CLI) | payer MEDICAID | END 2020-10-13 02:22 | disposition critical access hospital (66) | LOC: EMS 02:21 | DX: M25.562 Pain in left knee (principal); M25.561 Pain in right knee | CPT/HCPCS: A0425; A0429; A0999 ==

== ENCOUNTER 2020-10-13 02:40 | Emergency (ER) | payer MEDICAID ==
[2020-10-13] MEDS ORDERED: DEXAMETHASONE 10 MG/ML VIAL IM STA (02:47)
[2020-10-13] MEDS ORDERED: HYDROmorphone 1 MG/ML CARPUJECT IM STA (02:47)
[2020-10-13] MEDS ORDERED: KETOROLAC 60 MG/2 ML VIAL IM STA (02:47)
--- NOTE | 2020-10-13 03:28 | ED Physician Documentation ---
PD HPI LOWER EXT INJURY - Stated complaint Stated Complaint: KNEE PX - Chief complaint Chief Complaint: Ext Problem - History obtained from History obtained from: Patient - Additional information Additional information: Patient comes emergency department chief complaint of knee pain tonight. The patient has a longstanding history of knee problems and is chronically obese with lymphedema. She states that she had been able to walk around throughout the day but after going to bed, she felt as though her knees just became painful and "locked up" on her. Patient states that the only thing she can think of that she did that may have exacerbated the symptoms was that yesterday, she pivoted on her foot and felt a pop in her right knee. She states it did not seem to cause too much trouble throughout the day but that now, the knee is hurting more than the left side. Patient denies any other complaints at this time. She has already seen orthopedics regarding her knees and has been told she needs to lose weight before she can hope to have a knee replacement. Medics state that the patient was able to ambulate to their stretcher with her walker, but that she did seem to be uncomfortable. No other complaints at this time. Review of Systems Ten Systems: 10 systems reviewed and negative Constitutional: reports: Reviewed and negative Eyes: reports: Reviewed and negative Ears: reports: Reviewed and negative Nose: reports: Reviewed and negative Throat: reports: Reviewed and negative Cardiac: reports: Reviewed and negative Respiratory: reports: Reviewed and negative GI: reports: Reviewed and negative : reports: Reviewed and negative Skin: reports: Reviewed and negative Musculoskeletal: reports: Joint pain, Pain with weight bearing Neurologic: reports: Reviewed and negative Psychiatric: reports: Reviewed and negative Endocrine: reports: Reviewed and negative Immunocompromised: reports: Reviewed and negative PD PAST MEDICAL HISTORY - Past Medical History Past Medical History: Yes Cardiovascular: Hypertension, Pulmonary embolism Respiratory: Asthma, COPD Neuro: CVA Endocrine/Autoimmune: None GI: GERD, Colon polyps CHIEF INFORMATION SECURITY OFFICER: None : Other HEENT: None Psych: Depression Musculoskeletal: Osteoarthritis Derm: Psoriasis - Past Surgical History Past Surgical History: Yes General: Cholecystectomy, Hiatal hernia repair Ortho: Carpal Tunnel surgery /CHIEF INFORMATION SECURITY OFFICER: Hysterectomy, Other HEENT: Tonsil/Adenoidectomy - Present Medications Home Medications: Ambulatory Orders Medication Instructions Recorded Confirmed Prazosin HCl 4 mg PO QPM 09/02/08/16/18 Albuterol Sulfate [Proair Hfa 2 puffs INH Q4H PRN 02/11/18 08/16/18 Inhaler] Cyclobenzaprine [Flexeril] 10 mg PO TID PRN #20 tablet 04/17/18 08/16/18 Amlodipine Besylate 5 mg PO DAILY 09/30/19 Cabozantinib S-Malate [Cabometyx] 20 mg PO 09/30/19 Lansoprazole 30 mg PO DAILY 09/30/19 Meloxicam 7.5 mg PO DAILY 09/30/19 Minocycline HCl 100 mg PO BID 09/30/19 Pramipexole [Mirapex] 0.25 mg PO QPM 09/30/19 Witch Suzanna/Glycerin [Tucks] 1 pad TOP PRN PRN #1 pkg 10/11/19 Furosemide [Lasix] 20 mg PO DAILY #10 tablet 03/11/20 HYDROcod/ACETAM 5/325 [[place] 5/325] 1 - 2 tab PO Q6H PRN #15 tablet 03/11/20 Nystatin [Nystop] 1 applic TOP BID #3 bottle 03/11/20 Potassium Chloride 10 meq PO DAILY #10 tablet.er 03/11/20 Apremilast [Otezla] 30 mg PO BID 07/11/20 07/11/20 HYDROcod/ACETAM 5/325 [[place] 5/325] 1 - 2 tablet PO Q6H PRN #14 tablet 07/11/20 Valacyclovir HCl [Valtrex] 1,000 mg PO TID PRN 07/11/20 HYDROcod/ACETAM 5/325 [[place] 5/325] 1 - 2 tablet PO Q6H PRN #10 tablet 10/13/20 - Allergies Allergies/Adverse Reactions: Allergies Allergy/AdvReac Type Severity Reaction Status Date / Time iodine Allergy Severe Nausea Verified 10/13/20 02:50 enoxaparin [From Lovenox] Allergy Edema Verified 10/13/20 02:50 Latex, Natural Rubber Allergy Unknown Verified 10/13/20 02:50 rivaroxaban [From Xarelto] Allergy Unknown Verified 10/13/20 02:50 bee stings Allergy Severe Anaphylaxis Uncoded 10/13/20 02:50 paper tape Allergy Intermediate Hives Uncoded 10/13/20 02:50 - Social History Does the pt smoke?: No Smoking Status: Never smoker Does the pt drink ETOH?: Yes Does the pt have substance abuse?: No - Immunizations Immunizations are current?: Yes Immunizations: TDAP >10years/unknown - POLST Patient has POLST: Yes POLST Status: Full Code PD ED PE NORMAL - Vitals Vital signs reviewed: Yes - General General: Alert and oriented X 3, No acute distress, Well developed/nourished, Other (Morbidly obese) - HEENT HEENT: Atraumatic, PERRL, EOMI, Moist mucous membranes - Neck Neck: Supple, no meningeal sign - Cardiac Cardiac: Strong equal pulses - Respiratory Respiratory: No respiratory distress - Derm Derm: Normal color, Warm and dry, No rash - Extremities Extremities: No deformity, Other (Patient's legs are very obese, but appears symmetrical bilaterally. No discernible edema on the right side compared to the left. Diffuse tenderness palpation right peripatellar area. No deformity) - Neuro Neuro: Alert and oriented X 3 - Psych Psych: Normal mood, Normal affect Results - Vitals Vitals: Vital Signs - 24 hr 10/13/20 10/13/20 02:40 03:36 Temperature 36.4 C L Heart Rate 84 78 Respiratory 18 16 Rate Blood Pressure 197/103 H O2 Saturation 99 100 Oxygen O2 Source Room air PD MEDICAL DECISION MAKING - ED course Complexity details: considered differential, d/w patient, d/w family ED course: Patient was treated symptomatically in the emergency department. She has chronic knee problems and unfortunately is extremely obese, especially in the legs, on top of that. The patient may have sustained a minor sprain, but at this point in time, she will not fit in any of our knee immobilizers. I have had staff place her in an Deven wrap around her knee to add some support. She already uses a walker at home and has access to a shay chair and a wheelchair. She is already established with orthopedics and knows the conditions she missed me in order to have surgery. We have discussed management of the symptoms at home, including ice and elevation as well as use of the Deven bandage. The patient is instructed to use ibuprofen and may take the prescribed Vicodin if needed. Departure - Departure Disposition: 01 Home, Self Care Clinical Impression: Arthritis Right knee sprain Qualifiers: Encounter type: initial encounter Involved ligament of knee: unspecified ligament Qualified Code(s): S83.91XA - Sprain of unspecified site of right knee, initial encounter Condition: Stable Instructions: ED Sprain Knee Prescriptions: HYDROcod/ACETAM 5/325 [[place]ollywood 5/325] 1 - 2 tablet PO Q6H PRN #10 tablet PRN Reason: Pain
[2020-10-13 03:49] VITALS: BP 185/91
== END 2020-10-13 03:50 | disposition home or self-care (01) ==
LOC: EDUNIT# → ED 02:40 → SUPCPDRO 02:40 → ED 03:50
DX: S83.91XA Sprain of unspecified site of right knee, initial encounter (principal); X58.XXXA Exposure to other specified factors, initial encounter; M19.90 Unspecified osteoarthritis, unspecified site; I10 Essential (primary) hypertension; E66.01 Morbid (severe) obesity due to excess calories
CPT/HCPCS: 96372; 99283; 99284; J1170

== ENCOUNTER 2021-06-08 12:27 | Outpatient (CLI) | payer MEDICAID | END 2021-06-08 12:28 | disposition short-term general hospital (02) | LOC: EMS 12:27 | DX: R25.2 Cramp and spasm (principal); R10.31 Right lower quadrant pain; M79.604 Pain in right leg; M79.601 Pain in right arm | CPT/HCPCS: A0425; A0427; A0999 ==

== ENCOUNTER 2021-10-02 04:36 | Outpatient (CLI) | payer MEDICAID | END 2021-10-02 04:37 | disposition critical access hospital (66) | LOC: EMS 04:36 | DX: M25.562 Pain in left knee (principal); M25.561 Pain in right knee; M79.605 Pain in left leg; M79.604 Pain in right leg; M79.18 Myalgia, other site | CPT/HCPCS: A0425; A0429; A0999 ==

== ENCOUNTER 2022-07-29 14:01 | Outpatient (CLI) | payer MEDICAID | END 2022-07-29 14:02 | disposition home or self-care (01) | LOC: SC 14:01 | PROVIDERS: ATTEND Internal Medicine Pulmonary Disease | DX: Z53.9 Procedure and treatment not carried out, unspecified reason (principal) ==

== ENCOUNTER 2022-09-16 13:42 | Outpatient (CLI) | payer MEDICARE, MEDICAID ==
--- NOTE | 2022-09-16 21:35 | SLEEP CARE CONSULTATION ---
Information from patient questionnaire entered by Kami Underwood. I have reviewed and concur with the information entered by Kami Underwood. This document represents the service I personally performed and the decisions made by me, Mirtha Covarrubias MD, [facility]. History of Present Illness Service Date and Time: 09/16/2022 1342 Current [place] Sleepiness Scale score: 2 (09/16/22) Additional HPI information: Ms. Cardenas returned for follow up of the home sleep apnea test (HSAT) she had last December. The test showed severe obstructive sleep apnea-hypopnea, with an AHI of 32.8/hr and serena SaO2 of 71%. During the study, the patient had 33 apneas (33 obstructive, 0 central, 0 mixed) and 28 hypopneas. The longest episode lasted 59.0 seconds. The patient only slept supine during this study (supine AHI was 33.0 and non-supine, 0.00). Hypoxemia was moderate, with the lowest oxygen saturation of 71 % and 13.2 minutes with SaO2 under 90%. Baseline oxygen saturation was normal (Average oxygen saturation was 93%). Sleep Study - Results Type of Sleep Study: Home sleep study (COMPLETED 01/02/2022) Allergies and Home Medications Drug allergies reviewed: Yes Home medication list reviewed: Yes Allergy and home medication list: Allergies iodine Allergy (Severe, Verified 07/26/22 11:49) Nausea enoxaparin [From Lovenox] Allergy (Verified 07/26/22 11:49) Edema Latex, Natural Rubber Allergy (Verified 07/26/22 11:49) Unknown rivaroxaban [From Xarelto] Allergy (Verified 07/26/22 11:49) Unknown bee stings Allergy (Severe, Uncoded 07/26/22 11:49) Anaphylaxis paper tape Allergy (Intermediate, Uncoded 07/26/22 11:49) Hives Review of Systems Review of systems same as previous: Yes Physical Exam Vital signs obtained and entered by: KAMI Schroeder MA Blood Pressure: 132/70 (LEFT ARM) Cuff size: regular Heart Rate: 80 O2 Saturation: 96 Height: 5 ft Weight: 331 lb 14.4 oz Body Mass Index: 64.7 BMI Classification: Morbidly Obese Impression and Plan IMPRESSION: 1. Obstructive Sleep Apnea-Hypopnea Syndrome, severe (AHI of 32.8 on her most recent home sleep apnea test), presently untreated. She is looking forward to using a CPAP again. PLAN: 1. Prescription made for an autoCPAP, heated humidifier, and related supplies. 2. Try to lose weight 3. Return for follow up after one month of using the CPAP. Counseling Topics: Weight control Prescriptions: Auto CPAP Follow up with Sleep Care in: 1-2 months Visit Type: In Office Time Spent with Patient (minutes): 15 Provider Statement: I spent 100% of the Face to Face Visit with the patient with greater than 50% spent counseling the patient and coordination of care.
[2022-09-16 21:36] VITALS: BP 132/70
== END 2022-09-16 13:43 | disposition home or self-care (01) ==
LOC: SC 13:42
PROVIDERS: ATTEND Internal Medicine Pulmonary Disease
DX: G47.33 Obstructive sleep apnea (adult) (pediatric) (principal); E66.01 Morbid (severe) obesity due to excess calories; Z68.44 Body mass index [BMI] 60.0-69.9, adult
CPT/HCPCS: 99212; G0463

== ENCOUNTER 2023-02-17 15:32 | Outpatient (CLI) | payer MEDICARE, MEDICAID ==
--- NOTE | 2023-02-17 13:55 | SLEEP CARE CONSULTATION ---
Information from patient questionnaire entered by Kami Underwood. I have reviewed and concur with the information entered by Kami Underwood. This document represents the service I personally performed and the decisions made by me, Mirtha Covarrubias MD, [facility]. History of Present Illness Service Date and Time: 02/17/2023 1340 Reason for follow up: other (5 MONTH F/U MACHINE WAS TAKEN) Type of Sleep Study: Home sleep study (COMPLETED 01/02/2022) HPI additional information: Ms. Crane returned today for follow up of nasal CPAP therapy. She was diagnosed to have severe obstructive sleep apnea-hypopnea syndrome. The patient went to [employer] for the equipment and was fitted with a nasal mask. She reports using the device nightly and all through the night. The compliance report shows usage in 66 nights out of the past 90 nights, averaging 4.8 hours a night. The > 4 hour compliance rate for the past 30 days is 46%. She complained of no particular problem with the device such as soreness on the face, dry nose, epistaxis, nasal congestion or headache. She thinks that the pressure of 5 - 15 cmH2O is comfortable. On the CPAP therapy she notices improvement in her sleep quality, and that she wakes up feeling fresher in the morning and more awake/alert during the day. The average residual AHI is 3.4; and air leak, 4.6 L/min. The 90th percentile pressure is 9.2 cmH2O. Sleep Study - Results Type of Sleep Study: Home sleep study (COMPLETED 01/02/2022) Allergies and Home Medications Drug allergies reviewed: Yes Home medication list reviewed: Yes Allergy and home medication list: Allergies iodine Allergy (Severe, Verified 02/12/23 11:51) Nausea enoxaparin [From Lovenox] Allergy (Verified 02/12/23 11:51) Edema Latex, Natural Rubber Allergy (Verified 02/12/23 11:51) Unknown rivaroxaban [From Xarelto] Allergy (Verified 02/12/23 11:51) Unknown bee stings Allergy (Severe, Uncoded 02/12/23 11:51) Anaphylaxis paper tape Allergy (Intermediate, Uncoded 02/12/23 11:51) Hives Review of Systems Review of systems same as previous: Yes Physical Exam Vital signs obtained and entered by: KAMI Schroeder MA Height: 5 ft (PER PT ) Weight: 325 lb (PER PT) Body Mass Index: 63.4 BMI Classification: Morbidly Obese Impression and Plan IMPRESSION: 1. Obstructive Sleep Apnea-Hypopnea Syndrome, severe. with the patient again having [id number] and her machine was taken back by the durable medical supplier. The patient did report significant improvement on the nights she used her CPAP longer than 4 hours. She would like to try the treatment again. PLAN: 1. Schedule another home sleep apnea test (HSAT). 2. Try to lose weight 3. Return for follow up after the test. Counseling Topics: Weight control Follow up with Sleep Care in: 1-2 months Plan: HSAT Visit Type: Telehealth Phone Patient Location: Home Location of Provider: Office Patient agrees and consents to this telehealth visit type: Yes Patient agrees to have their insurance billed: Yes Time Spent with Patient (minutes): 15 Provider Statement: I spent 100% of the Telehealth Phone Call with the patient with greater than 50% spent counseling the patient and coordination of care.
== END 2023-02-17 15:33 | disposition home or self-care (01) ==
LOC: SC 15:32
PROVIDERS: ATTEND Internal Medicine Pulmonary Disease
DX: G47.33 Obstructive sleep apnea (adult) (pediatric) (principal); E66.01 Morbid (severe) obesity due to excess calories; Z68.44 Body mass index [BMI] 60.0-69.9, adult
CPT/HCPCS: 99442